=== PATIENT | male | born 1985 | race American Indian/Alaskan Native ===

== ENCOUNTER 2017-02-18 11:32 | Inpatient (IN) | payer MEDICAID ==
[2017-02-18] MEDS ORDERED: DILAUDID IV PRN (11:51)
[2017-02-18] MEDS ORDERED: D5NS 1,000 ML IV SCH (12:00)
[2017-02-18 14:25] LABS: Basophils % (Auto) 0.8 % (0.0-1.8); Eosinophils % (Auto) 2.9 % (0.0-4.3); Hematocrit 22.4 % (35.5-45.6); Hemoglobin 7.8 gm/dl (11.8-15.2); Mean Corpuscular HGB Conc 35 % (32-34); Mean Corpuscular Hemoglobin 34 pg (28-32); Mean Corpuscular Volume 96 fl (84-94); Platelet Count 240 K/mm3 (140-440); Red Blood Count 2.33 M/mm3 (3.65-5.03); Reticulocyte % 12.51 % (0.78-2.58); White Blood Count 16.4 K/mm3 (4.5-11.0)
[2017-02-18] MEDS: DILAUDID IV PRN ×3 (14:30→21:27)
[2017-02-18 14:31] LABS: Red Cell Distribution Width 23.3 % (13.2-15.2)
[2017-02-18] MEDS: BENADRYL IV PRN ×3 (14:35→21:26)
[2017-02-18] MEDS: LOVENOX SUB-Q SCH (14:36)
[2017-02-18] MEDS: NACL 0.9% 1000 ML 1,000 ML IV SCH ×2 (14:36→22:59)
[2017-02-18 14:37] LABS: Alanine Aminotransferase 29 units/L (7-56); Albumin 4.2 g/dL (3.9-5); Albumin/Globulin Ratio 1.6 %; Alkaline Phosphatase 92 units/L (35-129); Anion Gap 19 mmol/L; Blood Urea Nitrogen 8 mg/dL (9-20); Calcium 8.3 mg/dL (8.4-10.2); Carbon Dioxide 25 mmol/L (22-30); Chloride 99.4 mmol/L (98-107); Glucose 148 mg/dL (75-100); Sodium 139 mmol/L (137-145); Total Protein 6.9 g/dL (6.3-8.2)
[2017-02-18] MEDS ORDERED: ZOFRAN IV PRN (18:14)
[2017-02-18] MEDS ORDERED: TYLENOL PO PRN (18:14)
[2017-02-18] MEDS ORDERED: DULCOLAX PR PRN (18:14)
[2017-02-18] MEDS ORDERED: PERCOCET 5/325 PO PRN (18:14)
[2017-02-18] MEDS ORDERED: MILK OF MAGNESIA PO PRN (18:14)
--- NOTE | 2017-02-18 18:14 | History and Physical Report ---
History of Present Illness Date of examination: 02/18/17 Date of admission: 02/18/17 12:57 Chief complaint: CC: Severe pain all over 3 days History of present illness: 31 y/o AAF sent from Dr Fabian's office for severe pain all over.Pain is 10/ 10 and more in chest back and lower extremities.No exacerbating or relieving factors.No fever or chills.No SOB.No recent travel. Past History Past Medical History: other (SC anemia and crisis) Past Surgical History: No surgical history Social history: lives with family, smoking Family history: hypertension Medications and Allergies Allergies Allergy/AdvReac Type Severity Reaction Status Date / Time butorphanol tartrate Allergy Unknown Verified 07/24/16 14:50 [From Stadol] ketorolac tromethamine Allergy Shortness Verified 07/24/16 14:50 [From Toradol] of Breath metoclopramide HCl Allergy Unknown Verified 07/24/16 14:50 [From Reglan] morphine Allergy Shortness Verified 07/24/16 14:50 of Breath risperidone [From Risperdal] Allergy Swelling Verified 07/24/16 14:51 temazepam [From Restoril] Allergy Swelling Verified 07/24/16 14:50 nalbuphine HCl [From Nubain] AdvReac Unknown Verified 07/24/16 14:50 Home Medications Medication Instructions Recorded Confirmed Last Taken Type Folic Acid [Folvite] 1 mg PO QDAY 03/06/13 11/06/15 08/11/15 History oxyCODONE 30 mg PO Q6H PRN 11/06/15 11/06/15 Unknown History Folic Acid [Folvite] 1 mg PO QDAY #30 tablet 07/27/16 Unknown Rx Levofloxacin [Levaquin TAB] 500 mg PO QDAY #5 tablet 07/27/16 Unknown Rx oxyCODONE [Roxicodone TAB] 5 mg PO Q6HR PRN #15 tablet 07/27/16 Unknown Rx Active Meds: Active Medications Diphenhydramine HCl (Benadryl) 12.5 mg IV Q4H PRN PRN Reason: Itching Last Admin: 02/18/17 17:34 Dose: 12.5 mg Enoxaparin Sodium (Lovenox) 40 mg SUB-Q QDAY [facility]IES[facility] Last Admin: 02/18/17 14:36 Dose: 40 mg Hydromorphone HCl (Dilaudid) 2 mg IV Q4H PRN PRN Reason: Pain, Moderate (4-6) Last Admin: 02/18/17 15:30 Dose: 2 mg Sodium Chloride (Nacl 0.9% 1000 Ml) 1,000 mls @ 150 mls/hr IV DIRECT [facility]IESZKA Last Admin: 02/18/17 14:36 Dose: 150 mls/hr Review of Systems All systems: negative Constitutional: no weight loss, no weight gain, no fever, no chills, no sweats, no night sweats Ears, nose, mouth and throat: no sore throat, no swelling in mouth, no swelling in throat, no odynophagia Cardiovascular: chest pain, no orthopnea, no palpitations, no rapid/irregular heart beat, no edema, no syncope, no lightheadedness, no shortness of breath, no dyspnea on exertion, no paroxysmal nocturnal dyspnea Respiratory: no cough, no cough with sputum, no excessive sputum, no hemoptysis , no shortness of breath, no dyspnea on exertion Gastrointestinal: no nausea, no vomiting, no diarrhea, no constipation, no change in bowel habits, no hematemesis, no coffee ground emesis Genitourinary Male: no hematuria, no flank pain, no discharge, no urinary frequency, no urinary hesitancy, no nocturia, no incontinence, no erectile dysfunction, no genital pain Musculoskeletal: shooting arm pain, low back pain, shooting leg pain, no neck stiffness, no neck pain, no arm numbness/tingling Integumentary: no rash, no pruritis, no redness, no sores, no wounds, no jaundice, no boils, no blisters Neurological: no head injury, no seizures, no syncope Psychiatric: no anxiety, no memory loss, no change in sleep habits, no sleep disturbances, no insomnia, no hypersomnia, no change in appetite, no change in libido Endocrine: no cold intolerance, no heat intolerance, no polyphagia, no excessive thirst, no polydipsia, no polyuria, no nocturia, no excessive sweating , no flushing, no weight change Hematologic/Lymphatic: no easy bruising, no easy bleeding Allergic/Immunologic: no urticaria, no allergic rhinitis, no wheezing Exam - Constitutional Vitals: Temp Pulse Resp BP Pulse Ox 97.1 F L 97 H 16 124/65 97 02/18/17 16:00 02/18/17 16:00 02/18/17 16:00 02/18/17 16:00 02/18/17 13:41 General appearance: Present: no acute distress, well-nourished - EENT Eyes: Present: PERRL ENT: hearing intact, clear oral mucosa - Neck Neck: Present: supple, normal ROM - Respiratory Respiratory effort: normal Respiratory: bilateral: CTA - Cardiovascular Heart rate: 80 Rhythm: regular Heart Sounds: Present: S1 & S2. Absent: rub, click - Extremities Extremities: no ischemia, pulses intact, pulses symmetrical, No edema Peripheral Pulses: within normal limits - Abdominal General gastrointestinal: Present: soft, non-tender, non-distended, normal bowel sounds Male genitourinary: Present: normal - Rectal Rectal Exam: deferred - Integumentary Integumentary: Present: clear, warm, dry - Musculoskeletal Musculoskeletal: gait normal, strength equal bilaterally - Psychiatric Psychiatric: appropriate mood/affect, intact judgment & insight - Neurologic Neurologic: CNII-XII intact, moves all extremities Results - Labs CBC & Chem 7: 02/18/17 14:00 02/18/17 14:00 Labs: Laboratory Last Values WBC 16.4 K/mm3 (4.5-11.0) H 02/18/17 14:00 RBC 2.33 M/mm3 (3.65-5.03) L 02/18/17 14:00 Hgb 7.8 gm/dl (11.8-15.2) L 02/18/17 14:00 Hct 22.4 % (35.5-45.6) L 02/18/17 14:00 MCV 96 fl (84-94) H 02/18/17 14:00 MCH 34 pg (28-32) H 02/18/17 14:00 MCHC 35 % (32-34) H 02/18/17 14:00 RDW 23.3 % (13.2-15.2) H 02/18/17 14:00 Plt Count 240 K/mm3 (140-440) 02/18/17 14:00 Lymph % (Auto) 19.3 % (13.4-35.0) 02/18/17 14:00 [place] % (Auto) 8.0 % (0.0-7.3) H 02/18/17 14:00 Eos % (Auto) 2.9 % (0.0-4.3) 02/18/17 14:00 Baso % (Auto) 0.8 % (0.0-1.8) 02/18/17 14:00 Lymph # 3.2 K/mm3 (1.2-5.4) 02/18/17 14:00 [place] # 1.3 K/mm3 (0.0-0.8) H 02/18/17 14:00 Eos # 0.5 K/mm3 (0.0-0.4) H 02/18/17 14:00 Baso # 0.1 K/mm3 (0.0-0.1) 02/18/17 14:00 Seg Neutrophils % 69.0 % (40.0-70.0) 02/18/17 14:00 Seg Neutrophils # 11.3 K/mm3 (1.8-7.7) H 02/18/17 14:00 Percent Retic 12.51 % (0.78-2.58) H 02/18/17 14:00 Sodium 139 mmol/L (137-145) 02/18/17 14:00 Potassium 4.0 mmol/L (3.6-5.0) 02/18/17 14:00 Chloride 99.4 mmol/L (98-107) 02/18/17 14:00 Carbon Dioxide 25 mmol/L (22-30) 02/18/17 14:00 Anion Gap 19 mmol/L 02/18/17 14:00 BUN 8 mg/dL (9-20) L 02/18/17 14:00 Creatinine 0.5 mg/dL (0.8-1.5) L 02/18/17 14:00 Estimated GFR > 60 ml/min 02/18/17 14:00 BUN/Creatinine Ratio 16.00 % 02/18/17 14:00 Glucose 148 mg/dL (75-100) H 02/18/17 14:00 POC Glucose 153 (70-105) H 02/18/17 13:29 Hemoglobin A1c < 4.2 % (4-6) 02/18/17 14:00 Calcium 8.3 mg/dL (8.4-10.2) L 02/18/17 14:00 Total Bilirubin 4.80 mg/dL (0.1-1.2) H 02/18/17 14:00 AST 39 units/L (5-40) 02/18/17 14:00 ALT 29 units/L (7-56) 02/18/17 14:00 Alkaline Phosphatase 92 units/L (35-129) 02/18/17 14:00 Total Protein 6.9 g/dL (6.3-8.2) 02/18/17 14:00 Albumin 4.2 g/dL (3.9-5) 02/18/17 14:00 Albumin/Globulin Ratio 1.6 % 02/18/17 14:00 Short CBC 02/18/17 Range/Units 14:00 WBC 16.4 H (4.5-11.0) K/mm3 Hgb 7.8 L (11.8-15.2) gm/dl Hct 22.4 L (35.5-45.6) % Plt Count 240 (140-440) K/mm3 BMP 02/18/17 14:00 Sodium 139 Potassium 4.0 Chloride 99.4 Carbon Dioxide 25 BUN 8 L Creatinine 0.5 L Glucose 148 H Calcium 8.3 L Liver Function 02/18/17 Range/Units 14:00 Total Bilirubin 4.80 H (0.1-1.2) mg/dL AST 39 (5-40) units/L ALT 29 (7-56) units/L Alkaline Phosphatase 92 (35-129) units/L Albumin 4.2 (3.9-5) g/dL Assessment and Plan Advance Directives: Yes (Full code) VTE prophylaxis?: Chemical Plan of care discussed with patient/family: Yes - Patient Problems (1) Hemolytic crisis Current Visit: No Status: Acute Plan to address problem: SEc to cell crisis IV fluids and pain management Retic count [id number] tansfuse if necessary (2) Dehydration, moderate Current Visit: No Status: Acute Plan to address problem: IV Fluids (3) Hyperbilirubinemia Current Visit: No Status: Acute Plan to address problem: Sec to Hemolysis (4) Leukocytosis Current Visit: Yes Status: Acute Qualifiers: Leukocytosis type: L Plan to address problem: Sress induced?? Empiric Levaquin IV started (5) Pain management Current Visit: Yes Status: Acute Plan to address problem: IV Dilaudid for now.Pain pump if necessary (6) DVT prophylaxis Current Visit: Yes Status: Acute Plan to address problem: On Lovenox
[2017-02-18] MEDS: PEPCID PO SCH (21:29)
[2017-02-19] MEDS: BENADRYL IV PRN ×7 (01:27→22:36)
[2017-02-19] MEDS: DILAUDID IV PRN ×7 (01:27→22:35)
[2017-02-19] MEDS: NACL 0.9% 1000 ML 1,000 ML IV SCH ×3 (05:19→23:54)
[2017-02-19] MEDS: LOVENOX SUB-Q SCH (09:12)
[2017-02-19] MEDS: PEPCID PO SCH ×2 (09:13→22:34)
[2017-02-19] MEDS: LEVAQUIN 750MG/150ML 750 MG/150 ML BAG IV SCH (12:02)
[2017-02-19] MEDS: NACL 0.9% 1000 ML 1,000 ML IV ONE ×2 (12:02→17:03)
[2017-02-19 15:34] LABS: Bilirubin,Urine NEG (Negative); Blood,Urine NEG (Negative); Ketones,Urine NEG (Negative); Leukocyte Esterase,Urine NEG (Negative); Nitrite,Urine NEG (Negative); Protein,Urine <15 mg/dL mg/dL (Negative); WBC,Urine < 1.0 /HPF (0.0-6.0)
--- NOTE | 2017-02-19 18:30 | Consultation ---
History of Present Illness - Reason for Consult Consult date: 02/19/17 SCD/Pain. Requesting physician: ANTWAN GARRETT - History of Present Illness Thank you for this consult. Patient seen/examined, record reviewed, case d/w patient. Patient was seen in the office, transferred here for further eval. Labs showed elevated Glucose.appeared quite dehydrated. Past History Past Medical History: other (SC anemia and crisis) Past Surgical History: No surgical history Social history: single, lives with family, smoking Family history: no significant family history, hypertension Medications and Allergies Allergies Allergy/AdvReac Type Severity Reaction Status Date / Time butorphanol tartrate Allergy Unknown Verified 07/24/16 14:50 [From Stadol] ketorolac tromethamine Allergy Shortness Verified 07/24/16 14:50 [From Toradol] of Breath metoclopramide HCl Allergy Unknown Verified 07/24/16 14:50 [From Reglan] morphine Allergy Shortness Verified 07/24/16 14:50 of Breath risperidone [From Risperdal] Allergy Swelling Verified 07/24/16 14:51 temazepam [From Restoril] Allergy Swelling Verified 07/24/16 14:50 nalbuphine HCl [From Nubain] AdvReac Unknown Verified 07/24/16 14:50 Home Medications Medication Instructions Recorded Confirmed Last Taken Type Folic Acid [Folvite] 1 mg PO QDAY 03/06/13 11/06/15 08/11/15 History oxyCODONE 30 mg PO Q6H PRN 11/06/15 11/06/15 Unknown History Folic Acid [Folvite] 1 mg PO QDAY #30 tablet 07/27/16 Unknown Rx Levofloxacin [Levaquin TAB] 500 mg PO QDAY #5 tablet 07/27/16 Unknown Rx oxyCODONE [Roxicodone TAB] 5 mg PO Q6HR PRN #15 tablet 07/27/16 Unknown Rx Active Meds: Active Medications Acetaminophen (Tylenol) 650 mg PO Q4H PRN PRN Reason: Pain MILD(1-3)/Fever >100.5/DOYLE Bisacodyl (Dulcolax) 10 mg IN QDAY PRN PRN Reason: Constipation unrelieved by MOM Diphenhydramine HCl (Benadryl) 12.5 mg IV Q4H PRN PRN Reason: Itching Last Admin: 02/19/17 15:28 Dose: 12.5 mg Enoxaparin Sodium (Lovenox) 40 mg SUB-Q QDAY [facility] Last Admin: 02/19/17 09:12 Dose: 40 mg Famotidine (Pepcid) 20 mg PO BID [facility] Last Admin: 02/19/17 09:13 Dose: 20 mg Hydromorphone HCl (Dilaudid) 2 mg IV Q3H PRN PRN Reason: Pain, Moderate (4-6) Last Admin: 02/19/17 15:27 Dose: 2 mg Sodium Chloride (Nacl 0.9% 1000 Ml) 1,000 mls @ 150 mls/hr IV DIRECT [facility] Last Admin: 02/19/17 12:04 Dose: 150 mls/hr Levofloxacin/Dextrose (Levaquin 750mg/150ml) 750 mg in 150 mls @ 100 mls/hr IV Q24HR [facility]IES[facility]KA PRN Reason: Protocol Last Admin: 02/19/17 12:02 Dose: 100 mls/hr Magnesium Hydroxide (Milk Of Magnesia) 30 ml PO Q4H PRN PRN Reason: Constipation Ondansetron HCl (Zofran) 4 mg IV Q3H PRN PRN Reason: N/V unrelieved by Reglan Oxycodone/Acetaminophen (Percocet 5/325) 1 tab PO Q6H PRN PRN Reason: Pain, Moderate (4-6) Review of Systems Constitutional: chronic pain Exam - Constitutional Vitals: Temp Pulse Resp BP Pulse Ox 98.6 F 85 15 115/75 98 02/19/17 07:15 02/19/17 07:15 02/19/17 07:15 02/19/17 07:15 02/19/17 07:15 General appearance: Present: mild distress, well-nourished - EENT Eyes: Present: PERRL ENT: hearing intact, clear oral mucosa - Neck Neck: Present: supple, normal ROM - Respiratory Respiratory effort: normal Respiratory: bilateral: CTA - Cardiovascular Heart Sounds: Present: S1 & S2. Absent: rub, click - Extremities Extremities: pulses symmetrical, No edema Peripheral Pulses: within normal limits - Abdominal General gastrointestinal: Present: soft, non-tender, non-distended, normal bowel sounds Male genitourinary: Present: deferred - Rectal Rectal Exam: deferred - Integumentary Integumentary: Present: clear, warm, dry - Musculoskeletal Musculoskeletal: gait normal, strength equal bilaterally - Psychiatric Psychiatric: appropriate mood/affect, intact judgment & insight - Neurologic Neurologic: CNII-XII intact, moves all extremities Results - Labs CBC & Chem 7: 02/18/17 14:00 02/18/17 14:00 Assessment and Plan - Patient Problems (1) Anemia Current Visit: Yes Status: Acute Qualifiers: Anemia type: A Iron deficiency anemia type: I Vitamin B12 deficiency anemia type: V Folate deficiency anemia type: F Bone marrow failure anemia type: B Hemolytic anemia type: H Other causes of anemia: O Chronic kidney disease stage: C Plan to address problem: Will replace when indicated. (2) Sickle cell pain crisis Current Visit: Yes Status: Acute Plan to address problem: Pain control. (3) Dehydration Current Visit: Yes Status: Acute Plan to address problem: hydration. (4) Hyperglycemia Current Visit: Yes Status: Acute Plan to address problem: I had ordered A1C, no result yet.
--- NOTE | 2017-02-19 19:06 | Progress Note ---
Assessment and Plan Assessment and plan: 1. Sickle cell crisis Retic count 12% Monitor H&H; transfuse as needed Give IV fluids and pain control medications 2. Hyperbilirubinemia Secondary to hemolysis 3. Dehydration Give IV fluids 4. SIRS Started on levofloxacin empirically Obtain UA, urine and blood cultures, lactic acid to exclude sepsis 5. DVT prophylaxis History Interval history: c/o generalized body aches Hospitalist Physical - Constitutional Vitals: Temp Pulse Resp BP Pulse Ox 99.4 F 91 H 18 127/79 99 02/19/17 14:25 02/19/17 14:25 02/19/17 14:25 02/19/17 14:25 02/19/17 14:25 General appearance: Present: mild distress, well-nourished - EENT Eyes: Present: PERRL, EOM intact, scleral icterus. Absent: conjunctival injection - Neck Neck: Present: supple, normal ROM. Absent: masses or JVD - Respiratory Respiratory effort: normal Respiratory: bilateral: CTA, negative: rhonchi, wheezing - Cardiovascular Rhythm: other (tachycatdic) Heart Sounds: Present: S1 & S2. Absent: systolic murmur - Extremities Extremities: no ischemia - Abdominal General gastrointestinal: soft, non-tender, non-distended, normal bowel sounds - Neurologic Neurologic: CNII-XII intact, no focal deficits Results - Labs CBC & Chem 7: 02/20/17 05:35 02/20/17 05:35 Labs: Laboratory Last Values WBC 16.4 K/mm3 (4.5-11.0) H 02/18/17 14:00 RBC 2.33 M/mm3 (3.65-5.03) L 02/18/17 14:00 Hgb 7.8 gm/dl (11.8-15.2) L 02/18/17 14:00 Hct 22.4 % (35.5-45.6) L 02/18/17 14:00 MCV 96 fl (84-94) H 02/18/17 14:00 MCH 34 pg (28-32) H 02/18/17 14:00 MCHC 35 % (32-34) H 02/18/17 14:00 RDW 23.3 % (13.2-15.2) H 02/18/17 14:00 Plt Count 240 K/mm3 (140-440) 02/18/17 14:00 Lymph % (Auto) 19.3 % (13.4-35.0) 02/18/17 14:00 [place] % (Auto) 8.0 % (0.0-7.3) H 02/18/17 14:00 Eos % (Auto) 2.9 % (0.0-4.3) 02/18/17 14:00 Baso % (Auto) 0.8 % (0.0-1.8) 02/18/17 14:00 Lymph # 3.2 K/mm3 (1.2-5.4) 02/18/17 14:00 [place] # 1.3 K/mm3 (0.0-0.8) H 02/18/17 14:00 Eos # 0.5 K/mm3 (0.0-0.4) H 02/18/17 14:00 Baso # 0.1 K/mm3 (0.0-0.1) 02/18/17 14:00 Seg Neutrophils % 69.0 % (40.0-70.0) 02/18/17 14:00 Seg Neutrophils # 11.3 K/mm3 (1.8-7.7) H 02/18/17 14:00 Percent Retic 12.51 % (0.78-2.58) H 02/18/17 14:00 Sodium 139 mmol/L (137-145) 02/18/17 14:00 Potassium 4.0 mmol/L (3.6-5.0) 02/18/17 14:00 Chloride 99.4 mmol/L (98-107) 02/18/17 14:00 Carbon Dioxide 25 mmol/L (22-30) 02/18/17 14:00 Anion Gap 19 mmol/L 02/18/17 14:00 BUN 8 mg/dL (9-20) L 02/18/17 14:00 Creatinine 0.5 mg/dL (0.8-1.5) L 02/18/17 14:00 Estimated GFR > 60 ml/min 02/18/17 14:00 BUN/Creatinine Ratio 16.00 % 02/18/17 14:00 Glucose 148 mg/dL (75-100) H 02/18/17 14:00 POC Glucose 153 (70-105) H 02/18/17 13:29 Hemoglobin A1c < 4.2 % (4-6) 02/18/17 14:00 Lactic Acid 0.90 mmol/L (0.7-2.0) 02/19/17 11:44 Calcium 8.3 mg/dL (8.4-10.2) L 02/18/17 14:00 Total Bilirubin 4.80 mg/dL (0.1-1.2) H 02/18/17 14:00 AST 39 units/L (5-40) 02/18/17 14:00 ALT 29 units/L (7-56) 02/18/17 14:00 Alkaline Phosphatase 92 units/L (35-129) 02/18/17 14:00 Total Protein 6.9 g/dL (6.3-8.2) 02/18/17 14:00 Albumin 4.2 g/dL (3.9-5) 02/18/17 14:00 Albumin/Globulin Ratio 1.6 % 02/18/17 14:00 Urine Color Yellow (Yellow) 02/19/17 15:00 Urine Turbidity Clear (Clear) 02/19/17 15:00 Urine pH 7.0 (5.0-7.0) 02/19/17 15:00 Ur Specific [place] 1.005 (1.003-1.030) 02/19/17 15:00 Urine Protein <15 mg/dl mg/dL (Negative) 02/19/17 15:00 Urine Glucose (UA) Neg mg/dL (Negative) 02/19/17 15:00 Urine Ketones Neg mg/dL (Negative) 02/19/17 15:00 Urine Blood Neg (Negative) 02/19/17 15:00 Urine Nitrite Neg (Negative) 02/19/17 15:00 Urine Bilirubin Neg (Negative) 02/19/17 15:00 Urine Urobilinogen 4.0 mg/dL (<2.0) 02/19/17 15:00 Ur Leukocyte Esterase Neg (Negative) 02/19/17 15:00 Urine WBC (Auto) < 1.0 /HPF (0.0-6.0) 02/19/17 15:00 Urine RBC (Auto) 1.0 /HPF (0.0-6.0) 02/19/17 15:00 U Epithel Cells (Auto) < 1.0 /HPF (0-13.0) 02/19/17 15:00
[2017-02-19 20:12] LABS: Basophils % (Auto) 1.1 % (0.0-1.8); Hematocrit 24.7 % (35.5-45.6); Hemoglobin 8.4 gm/dl (11.8-15.2); Mean Corpuscular HGB Conc 34 % (32-34); Mean Corpuscular Hemoglobin 34 pg (28-32); Mean Corpuscular Volume 98 fl (84-94); Platelet Count 302 K/mm3 (140-440); Red Blood Count 2.52 M/mm3 (3.65-5.03); Reticulocyte % 12.39 % (0.78-2.58); White Blood Count 11.6 K/mm3 (4.5-11.0)
[2017-02-19 20:13] LABS: Red Cell Distribution Width 22.9 % (13.2-15.2)
[2017-02-20] MEDS: BENADRYL IV PRN ×7 (01:37→23:35)
[2017-02-20] MEDS: DILAUDID IV PRN ×7 (01:37→23:35)
[2017-02-20] MEDS: NACL 0.9% 1000 ML 1,000 ML IV SCH ×3 (05:28→19:51)
[2017-02-20 06:14] LABS: Basophils % (Auto) 0.7 % (0.0-1.8); Eosinophils % (Auto) 2.5 % (0.0-4.3); Hemoglobin 8.4 gm/dl (11.8-15.2); Mean Corpuscular HGB Conc 35 % (32-34); Mean Corpuscular Hemoglobin 34 pg (28-32); Mean Corpuscular Volume 97 fl (84-94); Platelet Count 314 K/mm3 (140-440); Red Blood Count 2.47 M/mm3 (3.65-5.03); White Blood Count 13.7 K/mm3 (4.5-11.0)
[2017-02-20 06:20] LABS: Red Cell Distribution Width 22.5 % (13.2-15.2)
[2017-02-20 06:39] LABS: Anion Gap 19 mmol/L; BUN/Creatinine Ratio 23.33; Blood Urea Nitrogen 7 mg/dL (9-20); Calcium 8.6 mg/dL (8.4-10.2); Carbon Dioxide 23 mmol/L (22-30); Chloride 100.8 mmol/L (98-107); Glucose 122 mg/dL (75-100); Potassium 3.7 mmol/L (3.6-5.0); Sodium 139 mmol/L (137-145)
[2017-02-20] MEDS: PEPCID PO SCH ×2 (11:39→22:01)
[2017-02-20] MEDS: LOVENOX SUB-Q SCH (11:40)
[2017-02-20] MEDS: LEVAQUIN 750MG/150ML 750 MG/150 ML BAG IV SCH (11:40)
--- NOTE | 2017-02-20 15:24 | Progress Note ---
Assessment and Plan Assessment and plan: 1. Sickle cell crisis Retic count 12% on admission Monitor H&H; transfuse as needed Give IV fluids and pain control medications 2. Hyperbilirubinemia Secondary to hemolysis Monitor 3. Dehydration Give IV fluids 4. SIRS Started on levofloxacin empirically Obtain UA, urine and blood cultures, lactic acid to exclude sepsis 5. Hyperglycemia Likely stress reaction, A1c 4 6. Pain management IV narcotics 7. DVT prophylaxis History Interval history: Still c/o generalized body aches, but slightly better than yesterday Hospitalist Physical - Constitutional Vitals: Temp Pulse Resp BP Pulse Ox 99.3 F 85 16 116/82 97 02/20/17 12:09 02/20/17 12:09 02/20/17 12:09 02/20/17 12:09 02/20/17 08:35 General appearance: Present: mild distress, well-nourished - EENT Eyes: Present: PERRL, EOM intact, scleral icterus. Absent: conjunctival injection - Neck Neck: Present: supple, normal ROM. Absent: masses or JVD - Respiratory Respiratory effort: normal Respiratory: bilateral: CTA, negative: rhonchi, wheezing - Cardiovascular Rhythm: regular Heart Sounds: Present: S1 & S2. Absent: systolic murmur - Extremities Extremities: no ischemia - Abdominal General gastrointestinal: soft, non-tender, non-distended, normal bowel sounds - Psychiatric Psychiatric: cooperative - Neurologic Neurologic: CNII-XII intact, no focal deficits Results - Labs CBC & Chem 7: 02/20/17 05:35 02/20/17 05:35 Labs: Laboratory Last Values WBC 13.7 K/mm3 (4.5-11.0) H 02/20/17 05:35 RBC 2.47 M/mm3 (3.65-5.03) L 02/20/17 05:35 Hgb 8.4 gm/dl (11.8-15.2) L 02/20/17 05:35 Hct 24.0 % (35.5-45.6) L 02/20/17 05:35 MCV 97 fl (84-94) H 02/20/17 05:35 MCH 34 pg (28-32) H 02/20/17 05:35 MCHC 35 % (32-34) H 02/20/17 05:35 RDW 22.5 % (13.2-15.2) H 02/20/17 05:35 Plt Count 314 K/mm3 (140-440) 02/20/17 05:35 Lymph % (Auto) 32.6 % (13.4-35.0) 02/20/17 05:35 [place] % (Auto) 10.1 % (0.0-7.3) H 02/20/17 05:35 Eos % (Auto) 2.5 % (0.0-4.3) 02/20/17 05:35 Baso % (Auto) 0.7 % (0.0-1.8) 02/20/17 05:35 Lymph # 4.5 K/mm3 (1.2-5.4) 02/20/17 05:35 [place] # 1.4 K/mm3 (0.0-0.8) H 02/20/17 05:35 Eos # 0.3 K/mm3 (0.0-0.4) 02/20/17 05:35 Baso # 0.1 K/mm3 (0.0-0.1) 02/20/17 05:35 Seg Neutrophils % 54.1 % (40.0-70.0) 02/20/17 05:35 Seg Neutrophils # 7.4 K/mm3 (1.8-7.7) 02/20/17 05:35 Percent Retic 12.39 % (0.78-2.58) H 02/19/17 19:50 Sodium 139 mmol/L (137-145) 02/20/17 05:35 Potassium 3.7 mmol/L (3.6-5.0) 02/20/17 05:35 Chloride 100.8 mmol/L (98-107) 02/20/17 05:35 Carbon Dioxide 23 mmol/L (22-30) 02/20/17 05:35 Anion Gap 19 mmol/L 02/20/17 05:35 BUN 7 mg/dL (9-20) L 02/20/17 05:35 Creatinine 0.3 mg/dL (0.8-1.5) L 02/20/17 05:35 Estimated GFR > 60 ml/min 02/20/17 05:35 BUN/Creatinine Ratio 23.33 % 02/20/17 05:35 Glucose 122 mg/dL (75-100) H 02/20/17 05:35 POC Glucose 153 (70-105) H 02/18/17 13:29 Hemoglobin A1c < 4.2 % (4-6) 02/18/17 14:00 Lactic Acid 0.90 mmol/L (0.7-2.0) 02/19/17 11:44 Calcium 8.6 mg/dL (8.4-10.2) 02/20/17 05:35 Total Bilirubin 4.80 mg/dL (0.1-1.2) H 02/18/17 14:00 AST 39 units/L (5-40) 02/18/17 14:00 ALT 29 units/L (7-56) 02/18/17 14:00 Alkaline Phosphatase 92 units/L (35-129) 02/18/17 14:00 Total Protein 6.9 g/dL (6.3-8.2) 02/18/17 14:00 Albumin 4.2 g/dL (3.9-5) 02/18/17 14:00 Albumin/Globulin Ratio 1.6 % 02/18/17 14:00 Urine Color Yellow (Yellow) 02/19/17 15:00 Urine Turbidity Clear (Clear) 02/19/17 15:00 Urine pH 7.0 (5.0-7.0) 02/19/17 15:00 Ur Specific [place] 1.005 (1.003-1.030) 02/19/17 15:00 Urine Protein <15 mg/dl mg/dL (Negative) 02/19/17 15:00 Urine Glucose (UA) Neg mg/dL (Negative) 02/19/17 15:00 Urine Ketones Neg mg/dL (Negative) 02/19/17 15:00 Urine Blood Neg (Negative) 02/19/17 15:00 Urine Nitrite Neg (Negative) 02/19/17 15:00 Urine Bilirubin Neg (Negative) 02/19/17 15:00 Urine Urobilinogen 4.0 mg/dL (<2.0) 02/19/17 15:00 Ur Leukocyte Esterase Neg (Negative) 02/19/17 15:00 Urine WBC (Auto) < 1.0 /HPF (0.0-6.0) 02/19/17 15:00 Urine RBC (Auto) 1.0 /HPF (0.0-6.0) 02/19/17 15:00 U Epithel Cells (Auto) < 1.0 /HPF (0-13.0) 02/19/17 15:00
--- NOTE | 2017-02-20 19:13 | Consultation ---
History of Present Illness - Reason for Consult Consult date: 02/20/17 - History of Present Illness Patient seen/examined, record reviewed, case d/w him. NAD. Cultures so far NG. Past History Past Medical History: other (SC anemia and crisis) Past Surgical History: No surgical history Social history: single, lives with family, smoking Family history: no significant family history, hypertension Medications and Allergies Allergies Allergy/AdvReac Type Severity Reaction Status Date / Time butorphanol tartrate Allergy Unknown Verified 07/24/16 14:50 [From Stadol] ketorolac tromethamine Allergy Shortness Verified 07/24/16 14:50 [From Toradol] of Breath metoclopramide HCl Allergy Unknown Verified 07/24/16 14:50 [From Reglan] morphine Allergy Shortness Verified 07/24/16 14:50 of Breath risperidone [From Risperdal] Allergy Swelling Verified 07/24/16 14:51 temazepam [From Restoril] Allergy Swelling Verified 07/24/16 14:50 nalbuphine HCl [From Nubain] AdvReac Unknown Verified 07/24/16 14:50 Home Medications Medication Instructions Recorded Confirmed Last Taken Type Folic Acid [Folvite] 1 mg PO QDAY 03/06/13 11/06/15 08/11/15 History oxyCODONE 30 mg PO Q6H PRN 11/06/15 11/06/15 Unknown History Folic Acid [Folvite] 1 mg PO QDAY #30 tablet 07/27/16 Unknown Rx Levofloxacin [Levaquin TAB] 500 mg PO QDAY #5 tablet 07/27/16 Unknown Rx oxyCODONE [Roxicodone TAB] 5 mg PO Q6HR PRN #15 tablet 07/27/16 Unknown Rx Active Meds: Active Medications Acetaminophen (Tylenol) 650 mg PO Q4H PRN PRN Reason: Pain MILD(1-3)/Fever >100.5/DOYLE Bisacodyl (Dulcolax) 10 mg [place] QDAY PRN PRN Reason: Constipation unrelieved by MOM Diphenhydramine HCl (Benadryl) 12.5 mg IV Q4H PRN PRN Reason: Itching Last Admin: 02/20/17 15:30 Dose: 12.5 mg Enoxaparin Sodium (Lovenox) 40 mg SUB-Q QDAY AGNIESZKA Last Admin: 02/20/17 11:40 Dose: 40 mg Famotidine (Pepcid) 20 mg PO BID [facility] Last Admin: 02/20/17 11:39 Dose: 20 mg Hydromorphone HCl (Dilaudid) 2 mg IV Q3H PRN PRN Reason: Pain, Moderate (4-6) Last Admin: 02/20/17 15:31 Dose: 2 mg Sodium Chloride (Nacl 0.9% 1000 Ml) 1,000 mls @ 150 mls/hr IV DIRECT [facility] Last Admin: 02/20/17 12:53 Dose: 150 mls/hr Levofloxacin/Dextrose (Levaquin 750mg/150ml) 750 mg in 150 mls @ 100 mls/hr IV Q24HR AGNIESZKA PRN Reason: Protocol Last Admin: 02/20/17 11:40 Dose: 100 mls/hr Magnesium Hydroxide (Milk Of Magnesia) 30 ml PO Q4H PRN PRN Reason: Constipation Ondansetron HCl (Zofran) 4 mg IV Q3H PRN PRN Reason: N/V unrelieved by Reglan Oxycodone/Acetaminophen (Percocet 5/325) 1 tab PO Q6H PRN PRN Reason: Pain, Moderate (4-6) Review of Systems Constitutional: chronic pain Musculoskeletal: low back pain Exam - Constitutional Vitals: Temp Pulse Resp BP Pulse Ox 99.3 F 79 16 114/76 97 02/20/17 15:50 02/20/17 15:50 02/20/17 15:50 02/20/17 15:50 02/20/17 08:35 General appearance: Present: mild distress, well-nourished - EENT Eyes: Present: PERRL ENT: hearing intact, clear oral mucosa - Neck Neck: Present: supple, normal ROM - Respiratory Respiratory effort: normal Respiratory: bilateral: CTA - Cardiovascular Heart Sounds: Present: S1 & S2. Absent: rub, click - Extremities Extremities: pulses symmetrical, No edema Peripheral Pulses: within normal limits - Abdominal General gastrointestinal: Present: soft, non-tender, non-distended, normal bowel sounds Male genitourinary: Present: deferred - Rectal Rectal Exam: deferred - Integumentary Integumentary: Present: clear, warm, dry - Musculoskeletal Musculoskeletal: gait normal, strength equal bilaterally - Psychiatric Psychiatric: appropriate mood/affect, intact judgment & insight - Neurologic Neurologic: CNII-XII intact, moves all extremities Results - Labs CBC & Chem 7: 02/20/17 05:35 02/20/17 05:35 Labs: Abnormal lab results 02/19/17 02/20/17 02/20/17 Range/Units 19:50 05:35 05:35 WBC 11.6 H 13.7 H (4.5-11.0) K/mm3 RBC 2.52 L 2.47 L (3.65-5.03) M/mm3 Hgb 8.4 L 8.4 L (11.8-15.2) gm/dl Hct 24.7 L 24.0 L (35.5-45.6) % MCV 98 H 97 H (84-94) fl MCH 34 H 34 H (28-32) pg MCHC 35 H (32-34) % RDW 22.9 H 22.5 H (13.2-15.2) % [place] % (Auto) 8.0 H 10.1 H (0.0-7.3) % [place] # 0.9 H 1.4 H (0.0-0.8) K/mm3 Seg Neutrophils % 70.7 H (40.0-70.0) % Seg Neutrophils # 8.2 H (1.8-7.7) K/mm3 Percent Retic 12.39 H (0.78-2.58) % BUN 7 L (9-20) mg/dL Creatinine 0.3 L (0.8-1.5) mg/dL Glucose 122 H (75-100) mg/dL Assessment and Plan - Patient Problems (1) Anemia Current Visit: Yes Status: Acute Qualifiers: Anemia type: A Iron deficiency anemia type: I Vitamin B12 deficiency anemia type: V Folate deficiency anemia type: F Bone marrow failure anemia type: B Hemolytic anemia type: H Other causes of anemia: O Chronic kidney disease stage: C Plan to address problem: Will replace when indicated. (2) Sickle cell pain crisis Current Visit: Yes Status: Acute Plan to address problem: Pain control. (3) Dehydration Current Visit: Yes Status: Acute Plan to address problem: hydration. (4) Hyperglycemia Current Visit: Yes Status: Acute Plan to address problem: I had ordered A1C, no result yet.
[2017-02-20 20:04] LABS: Basophils % (Auto) 1.7 % (0.0-1.8); Hematocrit 25.5 % (35.5-45.6); Hemoglobin 8.8 gm/dl (11.8-15.2); Mean Corpuscular HGB Conc 35 % (32-34); Mean Corpuscular Hemoglobin 34 pg (28-32); Mean Corpuscular Volume 98 fl (84-94); Platelet Count 371 K/mm3 (140-440); Reticulocyte % 11.68 % (0.78-2.58); White Blood Count 13.2 K/mm3 (4.5-11.0)
[2017-02-20 20:10] LABS: Red Cell Distribution Width 22.3 % (13.2-15.2)
--- NOTE | 2017-02-21 03:28 | Admit Criteria Form ---
Admission Criteria Documentation: SICKLE CELL DISEASE Clinical Indications for Admission to Inpatient Care (Place 'X' for any and all applicable criteria): Admission is indicated for 1 or more of the following(1)(2)(3)(4): [X]I. Inpatient admission required rather than observation care (see also observation care guidelines) because of 1 or more of the following(19): [ ]a) Altered mental status [ ]b) High fever or infection requiring inpatient admission as indicated by 1 or more of the following: [ ]A. Appropriate outpatient observation care antimicrobial treatment unavailable, not effective, or not appropriate for infection [ ]B. Documented bacteremia [ ]C. Temp >104.9F (40.5C) (oral) [ ]D. Temp >103.1F (oral) or <96.8F(rectal) that does not respond to all emergency treatment measures [ ]c) Supplemental O2 or respiratory treatments for > 24 hrs that is performable only in acute inpatient setting [X]d) Continuous parenteral narcotics or other major pain intervention for over 24 hours performable only in acute inpatient setting [ ]e) Exchange transfusion [ ]f) Other condition, treatment or monitoring requiring inpatient admission [ ]II. Acute chest syndrome indicated by ALL of the following (10): [ ]a) New alveolar infiltrate involving at least one lung segment [ ]b) Associated pulmonary symptoms or findings as indicated by1 or more of the following: [ ]i) Chest pain [ ]ii) Hypoxia [ ]iii) Tachypnea/dyspnea [ ]iv) Abnormal breath sounds (wheezing, crackles) [ ]v) Cough [ ]vi) Sputum production [ ]III. Hypoxemia or acidosis (more severe than baseline) [ ]IV. Emergent surgery needed (eg, acute cholecystitis) [ ]V. -related complication(11) [ ]. Splenic or hepatic sequestration(12) [ ]VII. Aplastic crisis [ ]VIII. Priapism or other vascular complication(13) [ ]IX. Traumatic hyphema [A](14) [ ]X. Acute renal failure [ ]XI. Signs or symptoms of central nervous system injury indicated by 1 or more of the following: [ ]a) Stroke(9) [ ]b) Seizure [ ]c) Other significant central nervous system symptom or event Extended stay beyond goal length of stay may be needed for: [ ]a) Inadequate pain control [ ]b) Acute chest syndrome [ ]c) Sequestration or aplastic crisis (12) [ ]d) Pneumonia and asthma exacerbation [ ]e) Neurologic or vascular complications (25) [ ]f) Infection (eg, osteomyelitis) that requires ongoing treatment) The original [facility] [employer] content created by [facility] has been revised. The portions of the content which have been revised are identified through the use of italic text or in bold, and [facility] has neither reviewed nor approved the modified material. All other unmodified content is copyright [facility]. Please see references footnoted in the original [facility] [employer] edition 2017 Admission Criteria Met: Yes
[2017-02-21] MEDS: NACL 0.9% 1000 ML 1,000 ML IV SCH ×3 (03:36→18:35)
[2017-02-21] MEDS: BENADRYL IV PRN ×5 (03:37→22:44)
[2017-02-21] MEDS: DILAUDID IV PRN ×6 (03:37→22:44)
[2017-02-21] MEDS: LEVAQUIN 750MG/150ML 750 MG/150 ML BAG IV SCH (10:17)
[2017-02-21] MEDS: PEPCID PO SCH ×2 (10:18→22:44)
[2017-02-21] MEDS: LOVENOX SUB-Q SCH (10:22)
--- NOTE | 2017-02-21 19:16 | Progress Note ---
Assessment and Plan Assessment and plan: 1. Sickle cell crisis Retic count 12% on admission Monitor H&H; transfuse as needed Give IV fluids and pain control medications 2. Hyperbilirubinemia Secondary to hemolysis Monitor 3. Dehydration Give IV fluids 4. SIRS Started on levofloxacin empirically Obtain UA, urine and blood cultures, lactic acid to exclude sepsis 5. Hyperglycemia Likely stress reaction, A1c 4 6. Pain management IV narcotics 7. DVT prophylaxis History Interval history: Still c/o pain, but feeling better Hospitalist Physical - Constitutional Vitals: Temp Pulse Resp BP Pulse Ox 99.5 F 74 16 101/60 98 02/21/17 16:40 02/21/17 16:40 02/21/17 16:40 02/21/17 16:40 02/21/17 16:40 General appearance: Present: mild distress, well-nourished - EENT Eyes: Present: PERRL, EOM intact - Neck Neck: Present: supple, normal ROM. Absent: masses or JVD - Respiratory Respiratory effort: normal Respiratory: bilateral: CTA, negative: rhonchi, wheezing - Cardiovascular Rhythm: regular Heart Sounds: Present: S1 & S2. Absent: systolic murmur - Extremities Extremities: no ischemia - Abdominal General gastrointestinal: soft, non-tender, non-distended, normal bowel sounds - Neurologic Neurologic: no focal deficits Results - Labs CBC & Chem 7: 02/21/17 18:45 02/21/17 15:00 Labs: Laboratory Last Values WBC 13.2 K/mm3 (4.5-11.0) H 02/20/17 19:50 RBC 2.60 M/mm3 (3.65-5.03) L 02/20/17 19:50 Hgb 8.8 gm/dl (11.8-15.2) L 02/20/17 19:50 Hct 25.5 % (35.5-45.6) L 02/20/17 19:50 MCV 98 fl (84-94) H 02/20/17 19:50 MCH 34 pg (28-32) H 02/20/17 19:50 MCHC 35 % (32-34) H 02/20/17 19:50 RDW 22.3 % (13.2-15.2) H 02/20/17 19:50 Plt Count 371 K/mm3 (140-440) 02/20/17 19:50 Lymph % (Auto) 21.1 % (13.4-35.0) 02/20/17 19:50 [place] % (Auto) 8.0 % (0.0-7.3) H 02/20/17 19:50 Eos % (Auto) 1.0 % (0.0-4.3) 02/20/17 19:50 Baso % (Auto) 1.7 % (0.0-1.8) 02/20/17 19:50 Lymph # 2.8 K/mm3 (1.2-5.4) 02/20/17 19:50 [place] # 1.1 K/mm3 (0.0-0.8) H 02/20/17 19:50 Eos # 0.1 K/mm3 (0.0-0.4) 02/20/17 19:50 Baso # 0.2 K/mm3 (0.0-0.1) H 02/20/17 19:50 Seg Neutrophils % 68.2 % (40.0-70.0) 02/20/17 19:50 Seg Neutrophils # 9.0 K/mm3 (1.8-7.7) H 02/20/17 19:50 Percent Retic 11.68 % (0.78-2.58) H 02/20/17 19:50 Sodium 139 mmol/L (137-145) 02/20/17 05:35 Potassium 3.7 mmol/L (3.6-5.0) 02/20/17 05:35 Chloride 100.8 mmol/L (98-107) 02/20/17 05:35 Carbon Dioxide 23 mmol/L (22-30) 02/20/17 05:35 Anion Gap 19 mmol/L 02/20/17 05:35 BUN 7 mg/dL (9-20) L 02/20/17 05:35 Creatinine 0.3 mg/dL (0.8-1.5) L 02/20/17 05:35 Estimated GFR > 60 ml/min 02/20/17 05:35 BUN/Creatinine Ratio 23.33 % 02/20/17 05:35 Glucose 122 mg/dL (75-100) H 02/20/17 05:35 POC Glucose 153 (70-105) H 02/18/17 13:29 Hemoglobin A1c < 4.2 % (4-6) 02/18/17 14:00 Lactic Acid 0.90 mmol/L (0.7-2.0) 02/19/17 11:44 Calcium 8.6 mg/dL (8.4-10.2) 02/20/17 05:35 Total Bilirubin 4.80 mg/dL (0.1-1.2) H 02/18/17 14:00 AST 39 units/L (5-40) 02/18/17 14:00 ALT 29 units/L (7-56) 02/18/17 14:00 Alkaline Phosphatase 92 units/L (35-129) 02/18/17 14:00 Total Protein 6.9 g/dL (6.3-8.2) 02/18/17 14:00 Albumin 4.2 g/dL (3.9-5) 02/18/17 14:00 Albumin/Globulin Ratio 1.6 % 02/18/17 14:00 Urine Color Yellow (Yellow) 02/19/17 15:00 Urine Turbidity Clear (Clear) 02/19/17 15:00 Urine pH 7.0 (5.0-7.0) 02/19/17 15:00 Ur Specific [place] 1.005 (1.003-1.030) 02/19/17 15:00 Urine Protein <15 mg/dl mg/dL (Negative) 02/19/17 15:00 Urine Glucose (UA) Neg mg/dL (Negative) 02/19/17 15:00 Urine Ketones Neg mg/dL (Negative) 02/19/17 15:00 Urine Blood Neg (Negative) 02/19/17 15:00 Urine Nitrite Neg (Negative) 02/19/17 15:00 Urine Bilirubin Neg (Negative) 02/19/17 15:00 Urine Urobilinogen 4.0 mg/dL (<2.0) 02/19/17 15:00 Ur Leukocyte Esterase Neg (Negative) 02/19/17 15:00 Urine WBC (Auto) < 1.0 /HPF (0.0-6.0) 02/19/17 15:00 Urine RBC (Auto) 1.0 /HPF (0.0-6.0) 02/19/17 15:00 U Epithel Cells (Auto) < 1.0 /HPF (0-13.0) 02/19/17 15:00
[2017-02-21 19:38] LABS: Basophils % (Auto) 1.4 % (0.0-1.8); Eosinophils % (Auto) 2.8 % (0.0-4.3); Hemoglobin 8.8 gm/dl (11.8-15.2); Mean Corpuscular HGB Conc 35 % (32-34); Mean Corpuscular Hemoglobin 34 pg (28-32); Mean Corpuscular Volume 98 fl (84-94); Platelet Count 413 K/mm3 (140-440); Red Blood Count 2.56 M/mm3 (3.65-5.03); Reticulocyte % 9.49 % (0.78-2.58); White Blood Count 11.5 K/mm3 (4.5-11.0)
[2017-02-21 19:46] LABS: Red Cell Distribution Width 20.8 % (13.2-15.2)
[2017-02-21 20:05] LABS: Anion Gap 16 mmol/L; Blood Urea Nitrogen 7 mg/dL (9-20); Calcium 8.3 mg/dL (8.4-10.2); Carbon Dioxide 24 mmol/L (22-30); Chloride 102.7 mmol/L (98-107); Glucose 102 mg/dL (75-100); Potassium 3.8 mmol/L (3.6-5.0); Sodium 139 mmol/L (137-145)
--- NOTE | 2017-02-21 22:19 | Consultation ---
History of Present Illness - Reason for Consult Consult date: 02/21/17 - History of Present Illness Patient seen/examined, records reviewed, case d/w him. Past History Past Medical History: other (SC anemia and crisis) Past Surgical History: No surgical history Social history: single, lives with family, smoking Family history: no significant family history, hypertension Medications and Allergies Allergies Allergy/AdvReac Type Severity Reaction Status Date / Time butorphanol tartrate Allergy Unknown Verified 07/24/16 14:50 [From Stadol] ketorolac tromethamine Allergy Shortness Verified 07/24/16 14:50 [From Toradol] of Breath metoclopramide HCl Allergy Unknown Verified 07/24/16 14:50 [From Reglan] morphine Allergy Shortness Verified 07/24/16 14:50 of Breath risperidone [From Risperdal] Allergy Swelling Verified 07/24/16 14:51 temazepam [From Restoril] Allergy Swelling Verified 07/24/16 14:50 nalbuphine HCl [From Nubain] AdvReac Unknown Verified 07/24/16 14:50 Home Medications Medication Instructions Recorded Confirmed Last Taken Type Folic Acid [Folvite] 1 mg PO QDAY 03/06/13 11/06/15 08/11/15 History oxyCODONE 30 mg PO Q6H PRN 11/06/15 11/06/15 Unknown History Folic Acid [Folvite] 1 mg PO QDAY #30 tablet 07/27/16 Unknown Rx Levofloxacin [Levaquin TAB] 500 mg PO QDAY #5 tablet 07/27/16 Unknown Rx oxyCODONE [Roxicodone TAB] 5 mg PO Q6HR PRN #15 tablet 07/27/16 Unknown Rx Active Meds: Active Medications Acetaminophen (Tylenol) 650 mg PO Q4H PRN PRN Reason: Pain MILD(1-3)/Fever >100.5/DOYLE Bisacodyl (Dulcolax) 10 mg [place] QDAY PRN PRN Reason: Constipation unrelieved by MOM Diphenhydramine HCl (Benadryl) 12.5 mg IV Q4H PRN PRN Reason: Itching Last Admin: 02/21/17 18:36 Dose: 12.5 mg Enoxaparin Sodium (Lovenox) 40 mg SUB-Q QDAY AGNIESZKA Last Admin: 02/21/17 10:22 Dose: Not Given Famotidine (Pepcid) 20 mg PO BID [facility] Last Admin: 02/21/17 10:18 Dose: 20 mg Hydromorphone HCl (Dilaudid) 2 mg IV Q3H PRN PRN Reason: Pain, Moderate (4-6) Last Admin: 02/21/17 18:36 Dose: 2 mg Sodium Chloride (Nacl 0.9% 1000 Ml) 1,000 mls @ 150 mls/hr IV DIRECT AGNIESZKA Last Admin: 02/21/17 18:35 Dose: 150 mls/hr Levofloxacin (Levaquin) 750 mg PO DAILY [facility] Magnesium Hydroxide (Milk Of Magnesia) 30 ml PO Q4H PRN PRN Reason: Constipation Ondansetron HCl (Zofran) 4 mg IV Q3H PRN PRN Reason: N/V unrelieved by Reglan Oxycodone/Acetaminophen (Percocet 5/325) 1 tab PO Q6H PRN PRN Reason: Pain, Moderate (4-6) Review of Systems Constitutional: chronic pain Exam - Constitutional Vitals: Temp Pulse Resp BP Pulse Ox 99.5 F 74 20 101/60 98 02/21/17 16:40 02/21/17 16:40 02/21/17 20:39 02/21/17 16:40 02/21/17 16:40 General appearance: Present: mild distress, well-nourished - EENT Eyes: Present: PERRL ENT: hearing intact, clear oral mucosa - Neck Neck: Present: supple, normal ROM - Respiratory Respiratory effort: normal Respiratory: bilateral: CTA - Cardiovascular Heart Sounds: Present: S1 & S2. Absent: rub, click - Extremities Extremities: pulses symmetrical, No edema Peripheral Pulses: within normal limits - Abdominal General gastrointestinal: Present: soft, non-tender, non-distended, normal bowel sounds Male genitourinary: Present: deferred - Rectal Rectal Exam: deferred - Integumentary Integumentary: Present: clear, warm, dry - Musculoskeletal Musculoskeletal: gait normal, strength equal bilaterally - Psychiatric Psychiatric: appropriate mood/affect, intact judgment & insight - Neurologic Neurologic: CNII-XII intact, moves all extremities Results - Labs CBC & Chem 7: 02/21/17 18:45 02/21/17 15:00 Labs: Abnormal lab results 02/21/17 02/21/17 Range/Units 15:00 18:45 WBC 11.5 H (4.5-11.0) K/mm3 RBC 2.56 L (3.65-5.03) M/mm3 Hgb 8.8 L (11.8-15.2) gm/dl Hct 25.0 L (35.5-45.6) % MCV 98 H (84-94) fl MCH 34 H (28-32) pg MCHC 35 H (32-34) % RDW 20.8 H (13.2-15.2) % [place] % (Auto) 7.8 H (0.0-7.3) % [place] # 0.9 H (0.0-0.8) K/mm3 Baso # 0.2 H (0.0-0.1) K/mm3 Percent Retic 9.49 H (0.78-2.58) % BUN 7 L (9-20) mg/dL Creatinine 0.4 L (0.8-1.5) mg/dL Glucose 102 H (75-100) mg/dL Calcium 8.3 L (8.4-10.2) mg/dL Assessment and Plan - Patient Problems (1) Anemia Current Visit: Yes Status: Acute Qualifiers: Anemia type: A Iron deficiency anemia type: I Vitamin B12 deficiency anemia type: V Folate deficiency anemia type: F Bone marrow failure anemia type: B Hemolytic anemia type: H Other causes of anemia: O Chronic kidney disease stage: C Plan to address problem: Will replace when indicated. (2) Sickle cell pain crisis Current Visit: Yes Status: Acute Plan to address problem: Pain control. (3) Dehydration Current Visit: Yes Status: Acute Plan to address problem: hydration. (4) Hyperglycemia Current Visit: Yes Status: Acute Plan to address problem: I had ordered A1C, no result yet.
[2017-02-22] MEDS: DILAUDID IV PRN ×6 (03:16→22:05)
[2017-02-22] MEDS: BENADRYL IV PRN ×6 (03:16→22:04)
[2017-02-22] MEDS ORDERED: LEVAQUIN PO SCH (10:00)
[2017-02-22] MEDS: LOVENOX SUB-Q SCH (10:00)
[2017-02-22] MEDS: PEPCID PO SCH ×2 (10:17→22:04)
[2017-02-22] MEDS: NACL 0.9% 1000 ML 1,000 ML IV SCH ×2 (10:23→16:54)
--- NOTE | 2017-02-22 17:11 | Progress Note ---
Assessment and Plan Assessment and plan: 1. Sickle cell crisis Retic count 12% on admission, 9 currently Monitor H&H; hgb in 8 range Give IV fluids and pain control medications 2. Hyperbilirubinemia Secondary to hemolysis Monitor 3. Dehydration Continue IV fluids 4. SIRS Started on levofloxacin empirically All cultures negative, so will d/c abx Likely stress reaction 5. Hyperglycemia Likely stress reaction, A1c 4 6. Pain management IV narcotics (not on narcotics on a regular basis) 7. DVT prophylaxis History Interval history: Still c/o pain, but better; anticipate discharge tomorrow Hospitalist Physical - Constitutional Vitals: Temp Pulse Resp BP Pulse Ox 98.9 F 66 17 115/75 98 02/22/17 09:36 02/22/17 09:36 02/22/17 14:33 02/22/17 09:36 02/22/17 09:36 General appearance: Present: no acute distress, well-nourished - EENT Eyes: Present: PERRL, EOM intact - Neck Neck: Present: supple, normal ROM. Absent: masses or JVD - Respiratory Respiratory effort: normal Respiratory: bilateral: CTA, negative: rhonchi, wheezing - Cardiovascular Rhythm: regular Heart Sounds: Present: S1 & S2. Absent: systolic murmur - Extremities Extremities: no ischemia - Abdominal General gastrointestinal: soft, non-tender, non-distended, normal bowel sounds - Psychiatric Psychiatric: cooperative - Neurologic Neurologic: CNII-XII intact, no focal deficits Results - Labs CBC & Chem 7: 02/21/17 18:45 02/21/17 15:00 Labs: Laboratory Last Values WBC 11.5 K/mm3 (4.5-11.0) H 02/21/17 18:45 RBC 2.56 M/mm3 (3.65-5.03) L 02/21/17 18:45 Hgb 8.8 gm/dl (11.8-15.2) L 02/21/17 18:45 Hct 25.0 % (35.5-45.6) L 02/21/17 18:45 MCV 98 fl (84-94) H 02/21/17 18:45 MCH 34 pg (28-32) H 02/21/17 18:45 MCHC 35 % (32-34) H 02/21/17 18:45 RDW 20.8 % (13.2-15.2) H 02/21/17 18:45 Plt Count 413 K/mm3 (140-440) 02/21/17 18:45 Lymph % (Auto) 32.1 % (13.4-35.0) 02/21/17 18:45 [place] % (Auto) 7.8 % (0.0-7.3) H 02/21/17 18:45 Eos % (Auto) 2.8 % (0.0-4.3) 02/21/17 18:45 Baso % (Auto) 1.4 % (0.0-1.8) 02/21/17 18:45 Lymph # 3.7 K/mm3 (1.2-5.4) 02/21/17 18:45 [place] # 0.9 K/mm3 (0.0-0.8) H 02/21/17 18:45 Eos # 0.3 K/mm3 (0.0-0.4) 02/21/17 18:45 Baso # 0.2 K/mm3 (0.0-0.1) H 02/21/17 18:45 Seg Neutrophils % 55.9 % (40.0-70.0) 02/21/17 18:45 Seg Neutrophils # 6.4 K/mm3 (1.8-7.7) 02/21/17 18:45 Percent Retic 9.49 % (0.78-2.58) H 02/21/17 18:45 Sodium 139 mmol/L (137-145) 02/21/17 15:00 Potassium 3.8 mmol/L (3.6-5.0) 02/21/17 15:00 Chloride 102.7 mmol/L (98-107) 02/21/17 15:00 Carbon Dioxide 24 mmol/L (22-30) 02/21/17 15:00 Anion Gap 16 mmol/L 02/21/17 15:00 BUN 7 mg/dL (9-20) L 02/21/17 15:00 Creatinine 0.4 mg/dL (0.8-1.5) L 02/21/17 15:00 Estimated GFR > 60 ml/min 02/21/17 15:00 BUN/Creatinine Ratio 17.50 % 02/21/17 15:00 Glucose 102 mg/dL (75-100) H 02/21/17 15:00 POC Glucose 153 (70-105) H 02/18/17 13:29 Hemoglobin A1c < 4.2 % (4-6) 02/18/17 14:00 Lactic Acid 0.90 mmol/L (0.7-2.0) 02/19/17 11:44 Calcium 8.3 mg/dL (8.4-10.2) L 02/21/17 15:00 Total Bilirubin 4.80 mg/dL (0.1-1.2) H 02/18/17 14:00 AST 39 units/L (5-40) 02/18/17 14:00 ALT 29 units/L (7-56) 02/18/17 14:00 Alkaline Phosphatase 92 units/L (35-129) 02/18/17 14:00 Total Protein 6.9 g/dL (6.3-8.2) 02/18/17 14:00 Albumin 4.2 g/dL (3.9-5) 02/18/17 14:00 Albumin/Globulin Ratio 1.6 % 02/18/17 14:00 Urine Color Yellow (Yellow) 02/19/17 15:00 Urine Turbidity Clear (Clear) 02/19/17 15:00 Urine pH 7.0 (5.0-7.0) 02/19/17 15:00 Ur Specific [place] 1.005 (1.003-1.030) 02/19/17 15:00 Urine Protein <15 mg/dl mg/dL (Negative) 02/19/17 15:00 Urine Glucose (UA) Neg mg/dL (Negative) 02/19/17 15:00 Urine Ketones Neg mg/dL (Negative) 02/19/17 15:00 Urine Blood Neg (Negative) 02/19/17 15:00 Urine Nitrite Neg (Negative) 02/19/17 15:00 Urine Bilirubin Neg (Negative) 02/19/17 15:00 Urine Urobilinogen 4.0 mg/dL (<2.0) 02/19/17 15:00 Ur Leukocyte Esterase Neg (Negative) 02/19/17 15:00 Urine WBC (Auto) < 1.0 /HPF (0.0-6.0) 02/19/17 15:00 Urine RBC (Auto) 1.0 /HPF (0.0-6.0) 02/19/17 15:00 U Epithel Cells (Auto) < 1.0 /HPF (0-13.0) 02/19/17 15:00
--- NOTE | 2017-02-22 19:37 | Consultation ---
History of Present Illness - Reason for Consult Consult date: 02/22/17 - History of Present Illness patient seen/examined, labs reviewed, case d/w him. He was not d/c due to increasing retic. Past History Past Medical History: other (SC anemia and crisis) Past Surgical History: No surgical history Social history: single, lives with family, smoking Family history: no significant family history, hypertension Medications and Allergies Allergies Allergy/AdvReac Type Severity Reaction Status Date / Time butorphanol tartrate Allergy Unknown Verified 07/24/16 14:50 [From Stadol] ketorolac tromethamine Allergy Shortness Verified 07/24/16 14:50 [From Toradol] of Breath metoclopramide HCl Allergy Unknown Verified 07/24/16 14:50 [From Reglan] morphine Allergy Shortness Verified 07/24/16 14:50 of Breath risperidone [From Risperdal] Allergy Swelling Verified 07/24/16 14:51 temazepam [From Restoril] Allergy Swelling Verified 07/24/16 14:50 nalbuphine HCl [From Nubain] AdvReac Unknown Verified 07/24/16 14:50 Home Medications Medication Instructions Recorded Confirmed Last Taken Type Folic Acid [Folvite] 1 mg PO QDAY 03/06/13 02/22/17 08/11/15 History oxyCODONE 30 mg PO Q6H PRN 11/06/15 02/22/17 Unknown History Folic Acid [Folvite] 1 mg PO QDAY #30 tablet 07/27/16 02/22/17 Unknown Rx Levofloxacin [Levaquin TAB] 500 mg PO QDAY #5 tablet 07/27/16 02/22/17 1 Day Ago Rx oxyCODONE [Roxicodone TAB] 5 mg PO Q6HR PRN #15 tablet 07/27/16 02/22/17 Unknown Rx Active Meds: Active Medications Acetaminophen (Tylenol) 650 mg PO Q4H PRN PRN Reason: Pain MILD(1-3)/Fever >100.5/DOYLE Bisacodyl (Dulcolax) 10 mg [place] QDAY PRN PRN Reason: Constipation unrelieved by MOM Diphenhydramine HCl (Benadryl) 12.5 mg IV Q4H PRN PRN Reason: Itching Last Admin: 02/22/17 18:01 Dose: 12.5 mg Enoxaparin Sodium (Lovenox) 40 mg SUB-Q QDAY [facility] Last Admin: 02/22/17 10:00 Dose: Not Given Famotidine (Pepcid) 20 mg PO BID [facility] Last Admin: 02/22/17 10:17 Dose: 20 mg Hydromorphone HCl (Dilaudid) 2 mg IV Q3H PRN PRN Reason: Pain, Moderate (4-6) Last Admin: 02/22/17 18:00 Dose: 2 mg Sodium Chloride (Nacl 0.9% 1000 Ml) 1,000 mls @ 150 mls/hr IV DIRECT [facility] Last Admin: 02/22/17 16:54 Dose: 150 mls/hr Levofloxacin (Levaquin) 750 mg PO DAILY [facility] Last Admin: 02/22/17 10:17 Dose: 750 mg Magnesium Hydroxide (Milk Of Magnesia) 30 ml PO Q4H PRN PRN Reason: Constipation Ondansetron HCl (Zofran) 4 mg IV Q3H PRN PRN Reason: N/V unrelieved by Reglan Oxycodone/Acetaminophen (Percocet 5/325) 1 tab PO Q6H PRN PRN Reason: Pain, Moderate (4-6) Review of Systems Constitutional: chronic pain Musculoskeletal: low back pain Exam - Constitutional Vitals: Temp Pulse Resp BP Pulse Ox 98.9 F 73 15 104/59 100 02/22/17 16:00 02/22/17 16:00 02/22/17 18:41 02/22/17 16:00 02/22/17 16:00 General appearance: Present: mild distress, well-nourished - EENT Eyes: Present: PERRL ENT: hearing intact, clear oral mucosa - Neck Neck: Present: supple, normal ROM - Respiratory Respiratory effort: normal Respiratory: bilateral: CTA - Cardiovascular Heart Sounds: Present: S1 & S2. Absent: rub, click - Extremities Extremities: pulses symmetrical, No edema Peripheral Pulses: within normal limits - Abdominal General gastrointestinal: Present: soft, non-tender, non-distended, normal bowel sounds Male genitourinary: Present: deferred - Rectal Rectal Exam: deferred - Integumentary Integumentary: Present: clear, warm, dry - Musculoskeletal Musculoskeletal: gait normal, strength equal bilaterally - Psychiatric Psychiatric: appropriate mood/affect, intact judgment & insight - Neurologic Neurologic: CNII-XII intact, moves all extremities Results - Labs CBC & Chem 7: 02/21/17 18:45 02/21/17 15:00 Labs: Abnormal lab results 02/21/17 02/21/17 Range/Units 15:00 18:45 WBC 11.5 H (4.5-11.0) K/mm3 RBC 2.56 L (3.65-5.03) M/mm3 Hgb 8.8 L (11.8-15.2) gm/dl Hct 25.0 L (35.5-45.6) % MCV 98 H (84-94) fl MCH 34 H (28-32) pg MCHC 35 H (32-34) % RDW 20.8 H (13.2-15.2) % Phelps % (Auto) 7.8 H (0.0-7.3) % Phelps # 0.9 H (0.0-0.8) K/mm3 Baso # 0.2 H (0.0-0.1) K/mm3 Percent Retic 9.49 H (0.78-2.58) % BUN 7 L (9-20) mg/dL Creatinine 0.4 L (0.8-1.5) mg/dL Glucose 102 H (75-100) mg/dL Calcium 8.3 L (8.4-10.2) mg/dL Assessment and Plan - Patient Problems (1) Anemia Current Visit: Yes Status: Acute Qualifiers: Anemia type: A Iron deficiency anemia type: I Vitamin B12 deficiency anemia type: V Folate deficiency anemia type: F Bone marrow failure anemia type: B Hemolytic anemia type: H Other causes of anemia: O Chronic kidney disease stage: C (2) Sickle cell pain crisis Current Visit: Yes Status: Acute (3) Dehydration Current Visit: Yes Status: Acute (4) Hyperglycemia Current Visit: Yes Status: Acute
[2017-02-22 21:31] LABS: Basophils % (Auto) 1.5 % (0.0-1.8); Eosinophils % (Auto) 2.2 % (0.0-4.3); Hematocrit 24.2 % (35.5-45.6); Hemoglobin 8.4 gm/dl (11.8-15.2); Mean Corpuscular HGB Conc 35 % (32-34); Mean Corpuscular Hemoglobin 34 pg (28-32); Mean Corpuscular Volume 98 fl (84-94); Platelet Count 415 K/mm3 (140-440); Red Blood Count 2.49 M/mm3 (3.65-5.03); Reticulocyte % 6.06 % (0.78-2.58); White Blood Count 12.9 K/mm3 (4.5-11.0)
[2017-02-22 21:38] LABS: Red Cell Distribution Width 20.4 % (13.2-15.2)
[2017-02-23] MEDS: NACL 0.9% 1000 ML 1,000 ML IV SCH ×2 (01:58→09:01)
[2017-02-23] MEDS: DILAUDID IV PRN ×4 (01:59→11:58)
[2017-02-23] MEDS: BENADRYL IV PRN ×2 (01:59→06:00)
--- NOTE | 2017-02-23 08:16 | Discharge Summary ---
Providers - Providers Date of Admission: 02/18/17 12:57 Attending physician: THERESA ABARCA MD 02/18/17 11:35 Consult to Physician [CONS] Routine Consulting Provider: KEAGAN BOJORQUEZ Reason For Exam: SICKLE CELL ANEMIA WITH PAIN Place consult to:: DR. Fariba BOJORQUEZ Notified:: . Phone number called:: [phone] Was contact made?: Yes If yes, spoke with:: DR. BOJORQUEZ Time called:: 11:22 Primary care physician: KEAGAN BOJORQUEZ Hospitalization Hospital course: 31 y/o AAF sent from Dr Bojorquez's office for severe pain all over.Pain is 10/ 10 and more in chest back and lower extremities 1. Sickle cell crisis Retic count 12% on admission, 9 currently Monitor H&H; hgb in 8 range Give IV fluids and pain control medications 2. Hyperbilirubinemia Secondary to hemolysis Monitor 3. Dehydration Continue IV fluids 4. SIRS Started on levofloxacin empirically All cultures negative, so will d/c abx Likely stress reaction 5. Hyperglycemia Likely stress reaction, A1c 4 6. Pain management IV narcotics (not on narcotics on a regular basis) 7. DVT prophylaxis Disposition: -01 TO HOME OR SELFCARE Time spent for discharge: 33 minutes Core Measure Documentation - Palliative Care Palliative Care/ Comfort Measures: Not Applicable - Core Measures Any of the following diagnoses?: none Exam - Constitutional Vitals: Temp Pulse Resp BP Pulse Ox 98.8 F 74 16 110/73 100 02/22/17 22:12 02/22/17 22:12 02/22/17 22:12 02/22/17 22:12 02/22/17 22:12 General appearance: Present: no acute distress, well-nourished - EENT Eyes: Present: PERRL ENT: hearing intact, clear oral mucosa - Neck Neck: Present: supple, normal ROM - Respiratory Respiratory effort: normal Respiratory: bilateral: CTA - Cardiovascular Heart Sounds: Present: S1 & S2. Absent: rub, click - Extremities Extremities: pulses symmetrical, No edema Peripheral Pulses: within normal limits - Abdominal General gastrointestinal: Present: soft, non-tender, non-distended, normal bowel sounds Male genitourinary: Present: normal - Integumentary Integumentary: Present: clear, warm, dry - Musculoskeletal Musculoskeletal: gait normal, strength equal bilaterally - Psychiatric Psychiatric: appropriate mood/affect, intact judgment & insight - Neurologic Neurologic: CNII-XII intact, moves all extremities Plan Follow up with: KEAGAN BOJORQUEZ DO [Primary Care Provider] - 7 Days Prescriptions: Folic Acid [Folvite] 1 mg PO QDAY #30 tablet oxyCODONE [Roxicodone TAB] 5 mg PO Q6HR PRN #15 tablet PRN Reason: Pain oxyCODONE 30 mg PO Q6H PRN #7 PRN Reason: Pain
[2017-02-23] MEDS: LOVENOX SUB-Q SCH (08:59)
[2017-02-23] MEDS: PEPCID PO SCH (09:02)
[2017-02-23 09:34] LABS: Anion Gap 17 mmol/L; BUN/Creatinine Ratio 23.33; Blood Urea Nitrogen 7 mg/dL (9-20); Calcium 8.4 mg/dL (8.4-10.2); Carbon Dioxide 24 mmol/L (22-30); Glucose 74 mg/dL (75-100); Potassium 3.4 mmol/L (3.6-5.0); Sodium 142 mmol/L (137-145)
[2017-02-23 09:35] LABS: Albumin/Globulin Ratio 1.6 %; Bilirubin,Direct 0.4 mg/dL (0-0.2); Bilirubin,Total 4.4 mg/dL (0.1-1.2); Total Protein 6.5 g/dL (6.3-8.2)
[2017-02-23 09:46] VITALS: BP 115/74
[2017-02-23] MEDS ORDERED: TRIPLE ANTIBIOTIC TP ONE (11:59)
[2017-02-23] MEDS ORDERED: FLUSH HEPARIN IV ONE (11:59)
== END 2017-02-23 14:09 | disposition home or self-care (01) | DRG 812 ==
LOC: 3A 11:32 → UNDOADMIN 11:32 → 3A 12:57
PROVIDERS: ADMIT Internal Medicine; ATTEND Internal Medicine
DX: D57.00 Hb-SS disease with crisis, unspecified (principal); E86.0 Dehydration; E80.6 Other disorders of bilirubin metabolism; R65.10 Systemic inflammatory response syndrome (SIRS) of non-infectious origin without acute organ dysfunction; Z88.8 Allergy status to other drugs, medicaments and biological substances; Z82.49 Family history of ischemic heart disease and other diseases of the circulatory system; Z88.5 Allergy status to narcotic agent; R73.9 Hyperglycemia, unspecified
CPT/HCPCS: 36415; 80048; 80053; 80074; 81001; 82140; 82962; 83036; 85025; 85045; 87040; 87086; A6250; J1170; J1200; J1642; J1650; J1956; J7030

== ENCOUNTER 2019-05-11 14:35 | Inpatient (IN) | payer MEDICAID ==
[2019-05-11] MEDS ORDERED: ONDANSETRON 4 MG/2 ML INJ IV PRN (16:15)
[2019-05-11] MEDS ORDERED: oxyCODONE 5 MG TAB PO PRN (16:27)
[2019-05-11] MEDS: diphenhydrAMINE 50 MG/ML VIAL IV SCH ×3 (17:59→23:30)
[2019-05-11] MEDS: HYDROmorphone 2 MG/1 ML INJ IV SCH ×3 (18:00→23:28)
[2019-05-11] MEDS: D5W/0.2% NACL 1,000 ML IV SCH ×2 (18:07→23:56)
--- NOTE | 2019-05-11 18:18 | History and Physical Report ---
History of Present Illness Date of examination: 05/11/19 Date of admission: 05/11/19 15:47 Chief complaint: Diffuse joint pain/ dehydration. History of present illness: Patient presented to the office, with complaints of diffuse joint pain. he was seen/examined, and looked quite dry, and in a lot of pain. He was admitted , for sxs management , and control. He will get pain control, hydration, and adjust labs as needed. He will get anti emetic , for N/V, and do a KUB. Past History Past Medical History: anemia Social history: single, lives with family Family history: no significant family history Medications and Allergies Allergies Allergy/AdvReac Type Severity Reaction Status Date / Time butorphanol tartrate Allergy Unknown Verified 07/24/16 14:50 [From Stadol] ketorolac tromethamine Allergy Shortness Verified 07/24/16 14:50 [From Toradol] of Breath metoclopramide HCl Allergy Unknown Verified 07/24/16 14:50 [From Reglan] morphine Allergy Shortness Verified 07/24/16 14:50 of Breath risperidone [From Risperdal] Allergy Swelling Verified 07/24/16 14:51 temazepam [From Restoril] Allergy Swelling Verified 07/24/16 14:50 nalbuphine HCl [From Nubain] AdvReac Unknown Verified 07/24/16 14:50 Home Medications Medication Instructions Recorded Confirmed Last Taken Type Folic Acid [Folvite] 1 mg PO QDAY #30 tablet 02/23/17 Unknown Rx oxyCODONE 30 mg PO Q6H PRN #7 02/23/17 Unknown Rx oxyCODONE [roxiCODONE] 5 mg PO Q6HR PRN #15 tablet 02/23/17 Unknown Rx Active Meds: Active Medications Diphenhydramine HCl (Benadryl) 12.5 mg IV Q3H [facility] Last Admin: 05/11/19 17:59 Dose: 12.5 mg Documented by: Heparin Sodium (Porcine) (Heparin) 5,000 unit SUB-Q Q12HR [facility] Hydromorphone HCl (Dilaudid) 3 mg IV Q3H [facility] Last Admin: 05/11/19 18:00 Dose: 3 mg Documented by: Dextrose/Sodium Chloride (D5ns 0.2%) 1,000 mls @ 250 mls/hr IV DIRECT [facility] Last Admin: 05/11/19 18:07 Dose: 250 mls/hr Documented by: Ondansetron HCl (Zofran) 4 mg IV Q12H PRN PRN Reason: Nausea And Vomiting Oxycodone HCl (Roxicodone) 30 mg PO Q8H PRN PRN Reason: BREAKTHRU Zolpidem Tartrate (Ambien) 10 mg PO QHS [facility] Review of Systems Constitutional: fatigue, weakness, chronic pain Exam - Constitutional Vitals: Temp Pulse Resp BP Pulse Ox 99.4 F 80 20 138/82 97 05/11/19 17:10 05/11/19 17:10 05/11/19 18:00 05/11/19 17:10 05/11/19 17:10 General appearance: Present: mild distress, well-nourished - EENT Eyes: Present: PERRL ENT: hearing intact, clear oral mucosa - Neck Neck: Present: supple, normal ROM - Respiratory Respiratory effort: normal Respiratory: bilateral: CTA - Cardiovascular Heart Sounds: Present: S1 & S2. Absent: rub, click - Extremities Extremities: pulses symmetrical, No edema Peripheral Pulses: within normal limits - Abdominal General gastrointestinal: Present: soft, non-tender, non-distended, normal bowel sounds Male genitourinary: Present: deferred - Rectal Rectal Exam: deferred - Integumentary Integumentary: Present: clear, warm, dry - Musculoskeletal Musculoskeletal: gait normal, strength equal bilaterally - Psychiatric Psychiatric: appropriate mood/affect, intact judgment & insight - Neurologic Neurologic: CNII-XII intact, moves all extremities Assessment and Plan - Patient Problems (1) Anemia Current Visit: No Status: Acute Plan to address problem: monitor labs, and address . (2) Dehydration Current Visit: No Status: Acute Plan to address problem: Hydration (3) Intractable nausea and vomiting Current Visit: Yes Status: Acute Plan to address problem: KUB, anti emetic.
[2019-05-11 18:29] LABS: Basophils # (Auto) 0.1 K/mm3 (0.0-0.1); Basophils % (Auto) 1.2 % (0.0-1.8); Hematocrit 27.7 % (35.5-45.6); Hemoglobin 9.7 gm/dl (11.8-15.2); Lymphocytes # (Auto) 1.2 K/mm3 (1.2-5.4); Lymphocytes % (Auto) 9.6 % (13.4-35.0); Mean Corpuscular HGB Conc 35 % (32-34); Mean Corpuscular Volume 98 fl (84-94); Monocytes # (Auto) 0.9 K/mm3 (0.0-0.8); Monocytes % (Auto) 7.1 % (0.0-7.3); Red Blood Count 2.82 M/mm3 (3.65-5.03)
[2019-05-11 18:30] LABS: Platelet Count 378 K/mm3 (140-440); Red Cell Distribution Width 21.5 % (13.2-15.2)
[2019-05-11 18:54] LABS: Alanine Aminotransferase 19 units/L (7-56); Albumin 4.9 g/dL (3.9-5); BUN/Creatinine Ratio 33; Blood Urea Nitrogen 10 mg/dL (9-20); Calcium 9.4 mg/dL (8.4-10.2); Hemolysis Index 9; Iron 87 ug/dL (49-181)
--- NOTE | 2019-05-11 20:21 | XRay Report ---
ABDOMEN 1 VIEW(S) INDICATION / CLINICAL INFORMATION: Nausea and vomiting, abdominal pain. COMPARISON: None available. FINDINGS: TUBES / LINES: None. BOWEL GAS PATTERN/EXTRALUMINAL GAS: No significant abnormality. No pneumatosis or secondary signs of free air. ADDITIONAL FINDINGS: RUQ surgical clips likely indicate prior cholecystectomy. Left total hip arthrop lasty is in place. IMPRESSION: 1. No acute findings. Signer Name: Chano Gale MD Signed: 05/11/2019 8:17 PM Workstation Name: [id number]
[2019-05-11] MEDS: ZOLPIDEM 5 MG TAB PO SCH (23:28)
[2019-05-11] MEDS: HEPARIN 5,000 UNIT/1 ML VIAL SUB-Q SCH (23:28)
[2019-05-12] MEDS: HYDROmorphone 2 MG/1 ML INJ IV SCH ×8 (02:45→23:06)
[2019-05-12] MEDS: diphenhydrAMINE 50 MG/ML VIAL IV SCH ×8 (02:45→23:05)
[2019-05-12] MEDS: D5W/0.2% NACL 1,000 ML IV SCH ×5 (05:38→23:03)
[2019-05-12] MEDS: HEPARIN 5,000 UNIT/1 ML VIAL SUB-Q SCH ×2 (10:00→22:00)
--- NOTE | 2019-05-12 17:50 | Progress Note ---
Assessment and Plan - Patient Problems (1) Anemia Current Visit: No Status: Acute Plan to address problem: monitor labs, and address . (2) Dehydration Current Visit: No Status: Acute Plan to address problem: Hydration (3) Intractable nausea and vomiting Current Visit: Yes Status: Acute Plan to address problem: KUB, anti emetic. Subjective Date of service: 05/12/19 Principal diagnosis: SCD/Pain cirisis/ anemia, dehydration. Interval history: Patient seen/examined, resting in bed, labs/records reviewed,case d/w patient.He rates pain level at 7/10.Will continue with current management. Objective - Constitutional Vitals: Vital Signs - 12hr 05/12/19 14:25 O2 Sat by Pulse 96 Oximetry General appearance: Present: mild distress, well-nourished - EENT Eyes: PERRL, EOM intact ENT: hearing intact, clear oral mucosa Ears: bilateral: normal - Neck Neck: supple, normal ROM - Respiratory Respiratory effort: normal Respiratory: bilateral: CTA - Breasts Breasts: deferred - Cardiovascular Rhythm: regular Heart Sounds: Present: S1 & S2. Absent: gallop, rub Extremities: pulses intact, No edema, normal color, Full ROM - Gastrointestinal General gastrointestinal: Present: soft, non-tender, non-distended, normal bowel sounds Rectal Exam: deferred - Genitourinary Male genitourinary: deferred - Integumentary Integumentary: clear, warm, dry - Musculoskeletal Musculoskeletal: 1, strength equal bilaterally - Neurologic Neurologic: moves all extremities - Psychiatric Psychiatric: memory intact, appropriate mood/affect, intact judgment & insight - Labs CBC & Chem 7: 05/11/19 Unknown 05/11/19 Unknown Labs: Abnormal lab results 05/11/19 05/11/19 05/11/19 Range/Units Unknown Unknown Unknown WBC 12.2 H (4.5-11.0) K/mm3 RBC 2.82 L (3.65-5.03) M/mm3 Hgb 9.7 L (11.8-15.2) gm/dl Hct 27.7 L (35.5-45.6) % MCV 98 H (84-94) fl MCH 34 H (28-32) pg MCHC 35 H (32-34) % RDW 21.5 H (13.2-15.2) % Lymph % (Auto) 9.6 L (13.4-35.0) % Hitchcock # 0.9 H (0.0-0.8) K/mm3 Seg Neutrophils % 82.1 H (40.0-70.0) % Seg Neutrophils # 10.0 H (1.8-7.7) K/mm3 Percent Retic (0.78-2.58) % Creatinine 0.3 L (0.8-1.5) mg/dL Glucose 159 H (75-100) mg/dL Total Bilirubin 3.90 H (0.1-1.2) mg/dL Lactate Dehydrogenase 540 H (91-180) units/L Total Protein 8.3 H (6.3-8.2) g/dL // Range/Units Unknown WBC (4.5-11.0) K/mm3 RBC (3.65-5.03) M/mm3 Hgb (11.8-15.2) gm/dl Hct (35.5-45.6) % MCV (84-94) fl MCH (28-32) pg MCHC (32-34) % RDW (13.2-15.2) % Lymph % (Auto) (13.4-35.0) % Hitchcock # (0.0-0.8) K/mm3 Seg Neutrophils % (40.0-70.0) % Seg Neutrophils # (1.8-7.7) K/mm3 Percent Retic 10.65 H (0.78-2.58) % Creatinine (0.8-1.5) mg/dL Glucose (75-100) mg/dL Total Bilirubin (0.1-1.2) mg/dL Lactate Dehydrogenase (91-180) units/L Total Protein (6.3-8.2) g/dL
[2019-05-12] MEDS: ZOLPIDEM 5 MG TAB PO SCH (21:59)
[2019-05-13] MEDS: diphenhydrAMINE 50 MG/ML VIAL IV SCH ×8 (02:03→23:01)
[2019-05-13] MEDS: HYDROmorphone 2 MG/1 ML INJ IV SCH ×8 (02:04→23:01)
[2019-05-13] MEDS: D5W/0.2% NACL 1,000 ML IV SCH ×4 (05:20→22:04)
[2019-05-13] MEDS: HEPARIN 5,000 UNIT/1 ML VIAL SUB-Q SCH ×2 (10:00→22:07)
--- NOTE | 2019-05-13 14:38 | Progress Note ---
Assessment and Plan - Patient Problems (1) Anemia Current Visit: No Status: Acute Plan to address problem: monitor labs, and address . continue the same (2) Dehydration Current Visit: No Status: Acute Plan to address problem: Hydration continue the same. (3) Intractable nausea and vomiting Current Visit: Yes Status: Acute Plan to address problem: KUB, anti emetic. Subjective Date of service: 05/13/19 Principal diagnosis: SCD/Pain cirisis/ anemia, dehydration. Interval history: Patient seen/examined, resting in bed, labs/records reviewed,case d/w patient.He rates pain level at 7/10.Will continue with current management. Patient seen/examined, resting in bed, records reviewed, case d/w patient. pain better today, and will plan D/c in 1-2 days. Objective - Constitutional Vitals: Vital Signs - 12hr 05/13/19 05/13/19 05/13/19 05:07 05:24 07:36 Temperature 98.2 F Pulse Rate 72 Respiratory 17 18 Rate Blood Pressure 114/74 O2 Sat by Pulse 97 100 Oximetry General appearance: Present: mild distress, well-nourished - EENT Eyes: PERRL, EOM intact ENT: hearing intact, clear oral mucosa Ears: bilateral: normal - Neck Neck: supple, normal ROM - Respiratory Respiratory effort: normal Respiratory: bilateral: CTA - Breasts Breasts: deferred - Cardiovascular Rhythm: regular Heart Sounds: Present: S1 & S2. Absent: gallop, rub Extremities: pulses intact, No edema, normal color, Full ROM - Gastrointestinal General gastrointestinal: Present: soft, non-tender, non-distended, normal bowel sounds Rectal Exam: deferred - Genitourinary Male genitourinary: deferred - Integumentary Integumentary: clear, warm, dry - Musculoskeletal Musculoskeletal: 1, strength equal bilaterally - Neurologic Neurologic: moves all extremities - Psychiatric Psychiatric: memory intact, appropriate mood/affect, intact judgment & insight - Labs CBC & Chem 7: 05/11/19 Unknown 05/11/19 Unknown
[2019-05-13] MEDS: ZOLPIDEM 5 MG TAB PO SCH (22:03)
[2019-05-14] MEDS: diphenhydrAMINE 50 MG/ML VIAL IV SCH ×8 (01:58→23:02)
[2019-05-14] MEDS: HYDROmorphone 2 MG/1 ML INJ IV SCH ×8 (01:58→23:02)
[2019-05-14] MEDS: D5W/0.2% NACL 1,000 ML IV SCH ×4 (05:03→20:15)
[2019-05-14] MEDS: HEPARIN 5,000 UNIT/1 ML VIAL SUB-Q SCH ×2 (11:03→22:32)
--- NOTE | 2019-05-14 19:08 | Progress Note ---
Assessment and Plan - Patient Problems (1) Anemia Current Visit: No Status: Acute Plan to address problem: monitor labs, and address . continue the same (2) Dehydration Current Visit: No Status: Acute Plan to address problem: Hydration continue the same. (3) Intractable nausea and vomiting Current Visit: Yes Status: Acute Plan to address problem: KUB, anti emetic. Subjective Date of service: 05/14/19 Principal diagnosis: SCD/Pain cirisis/ anemia, dehydration. Interval history: Patient seen/examined, resting in bed, labs/records reviewed,case d/w patient.He rates pain level at 7/10.Will continue with current management. Patient seen/examined, resting in bed, records reviewed, case d/w patient. pain better today, and will plan D/c in 1-2 days. Patient seen/examined, resting in bed, records reviewed, case d/w patient. will d/c home tomorrow. Objective - Constitutional Vitals: Vital Signs - 12hr 05/14/19 05/14/19 12:24 16:16 Temperature 98.6 F 98.6 F Pulse Rate 84 92 H Respiratory 15 20 Rate Blood Pressure 112/70 143/88 O2 Sat by Pulse 95 99 Oximetry General appearance: Present: mild distress, well-nourished - EENT Eyes: PERRL, EOM intact ENT: hearing intact, clear oral mucosa Ears: bilateral: normal - Neck Neck: supple, normal ROM - Respiratory Respiratory effort: normal Respiratory: bilateral: CTA - Breasts Breasts: deferred - Cardiovascular Rhythm: regular Heart Sounds: Present: S1 & S2. Absent: gallop, rub Extremities: pulses intact, No edema, normal color, Full ROM - Gastrointestinal General gastrointestinal: Present: soft, non-tender, non-distended, normal bowel sounds Rectal Exam: deferred - Genitourinary Male genitourinary: deferred - Integumentary Integumentary: clear, warm, dry - Musculoskeletal Musculoskeletal: 1, strength equal bilaterally - Neurologic Neurologic: moves all extremities - Psychiatric Psychiatric: memory intact, appropriate mood/affect, intact judgment & insight - Labs CBC & Chem 7: 05/11/19 Unknown 05/11/19 Unknown
--- NOTE | 2019-05-14 19:39 | Discharge Summary ---
Providers - Providers Date of Admission: 05/11/19 15:47 Date of discharge: 05/15/19 Attending physician: KEAGAN BOJORQUEZ Primary care physician: KEAGAN BOJORQUEZ Hospitalization Reason for admission: SCD/Anemia. Condition: Fair Hospital course: Patient presented to the office, with CC of diffuse joint pain. Examined, admitted to the hospital, for pain/sxs control. he was hydrated, treated with pain meds, and labs monitored.He will be d/c home in am. Disposition: DC-01 TO HOME OR SELFCARE - Discharge Diagnoses (1) Anemia Status: Chronic (2) Dehydration Status: Resolved (3) Intractable nausea and vomiting Status: Resolved (4) Sickle cell pain crisis Status: Acute Core Measure Documentation - Palliative Care Palliative Care/ Comfort Measures: Not Applicable - Core Measures Any of the following diagnoses?: none Exam - Constitutional Vitals: Temp Pulse Resp BP Pulse Ox 98.6 F 92 H 20 143/88 99 05/14/19 16:16 05/14/19 16:16 05/14/19 16:16 05/14/19 16:16 05/14/19 16:16 General appearance: Present: mild distress, well-nourished - EENT Eyes: Present: PERRL ENT: hearing intact, clear oral mucosa - Neck Neck: Present: supple, normal ROM - Respiratory Respiratory effort: normal Respiratory: bilateral: CTA - Cardiovascular Heart Sounds: Present: S1 & S2. Absent: rub, click - Extremities Extremities: pulses symmetrical, No edema Peripheral Pulses: within normal limits - Abdominal General gastrointestinal: Present: soft, non-tender, non-distended, normal bowel sounds Male genitourinary: Present: deferred - Rectal Rectal Exam: deferred - Integumentary Integumentary: Present: clear, warm, dry - Musculoskeletal Musculoskeletal: gait normal, strength equal bilaterally - Psychiatric Psychiatric: appropriate mood/affect, intact judgment & insight - Neurologic Neurologic: CNII-XII intact, moves all extremities Plan Activity: no restrictions Diet: regular Follow up with: KEAGAN BOJORQUEZ DO [Primary Care Provider] - 7 Days
[2019-05-14] MEDS: ZOLPIDEM 5 MG TAB PO SCH (22:31)
[2019-05-15 00:43] VITALS: BP 115/81
[2019-05-15] MEDS: diphenhydrAMINE 50 MG/ML VIAL IV SCH ×3 (02:04→08:04)
[2019-05-15] MEDS: HYDROmorphone 2 MG/1 ML INJ IV SCH ×3 (02:04→08:04)
[2019-05-15] MEDS: D5W/0.2% NACL 1,000 ML IV SCH (02:08)
[2019-05-15] MEDS ORDERED: NEOMY 3.5 MG/BACIT 400 UNITS/POLY B 5000 UNITS/GM OINT PACKET TP ONE (09:00)
[2019-05-15] MEDS: HEPARIN 5,000 UNIT/1 ML VIAL SUB-Q SCH (09:23)
== END 2019-05-15 10:00 | disposition home or self-care (01) | DRG 812 ==
LOC: 3A 14:35 → UNDOADMIN 14:35 → 3A 15:47
PROVIDERS: ADMIT Internal Medicine Hematology & Oncology; ATTEND Internal Medicine Hematology & Oncology
DX: D57.00 Hb-SS disease with crisis, unspecified (principal); D64.9 Anemia, unspecified; Z88.6 Allergy status to analgesic agent; Z88.5 Allergy status to narcotic agent; Z88.8 Allergy status to other drugs, medicaments and biological substances; Z79.899 Other long term (current) drug therapy
CPT/HCPCS: 36415; 74018; 80053; 82728; 83540; 83615; 85025; 85045; G0378; A6250; J1170; J1200; J1642; J1644

== ENCOUNTER 2019-08-06 14:23 | Inpatient (IN) | payer MEDICAID ==
[2019-08-06] MEDS ORDERED: ONDANSETRON 4 MG/2 ML INJ IV PRN (17:01)
[2019-08-06] MEDS ORDERED: diphenhydrAMINE 50 MG/ML VIAL IV PRN (17:03)
[2019-08-06] MEDS ORDERED: oxyCODONE 5 MG TAB PO PRN (17:29)
[2019-08-06] MEDS ORDERED: ACETAMINOPHEN 325 MG TAB PO PRN (17:40)
[2019-08-06] MEDS ORDERED: D5W/0.2% NACL 1,000 ML IV SCH (18:00)
[2019-08-06] MEDS: HYDROmorphone 2 MG/1 ML INJ IV PRN ×2 (18:10→21:02)
[2019-08-06] MEDS: diphenhydrAMINE 50 MG/ML VIAL IV PRN ×2 (18:12→21:03)
[2019-08-06] MEDS: ZOLPIDEM 5 MG TAB PO SCH (21:04)
[2019-08-06] MEDS: HEPARIN 5,000 UNIT/1 ML VIAL SUB-Q SCH (22:05)
--- NOTE | 2019-08-06 22:53 | History and Physical Report ---
History of Present Illness Date of examination: 08/06/19 Date of admission: 08/06/19 16:46 Chief complaint: SCD/Pain crisis, anemia./dehydration. History of present illness: Patient presented to the office, after not able to control his pain crisis at home.His pain was rated at 9/10 in the office, attempts made, was unsuccessful, hence , this admission for sxs control. and management.He will be hydrated, given pain control, and monitor labs. Past History Past Medical History: anemia Social history: single, lives with family Family history: no significant family history Medications and Allergies Allergies Allergy/AdvReac Type Severity Reaction Status Date / Time butorphanol tartrate Allergy Unknown Verified 07/24/16 14:50 [From Stadol] ketorolac tromethamine Allergy Shortness Verified 07/24/16 14:50 [From Toradol] of Breath metoclopramide HCl Allergy Unknown Verified 07/24/16 14:50 [From Reglan] morphine Allergy Shortness Verified 07/24/16 14:50 of Breath risperidone [From Risperdal] Allergy Swelling Verified 07/24/16 14:51 temazepam [From Restoril] Allergy Swelling Verified 07/24/16 14:50 nalbuphine HCl [From Nubain] AdvReac Unknown Verified 07/24/16 14:50 Home Medications Medication Instructions Recorded Confirmed Last Taken Type Folic Acid [Folvite] 1 mg PO QDAY #30 tablet 02/23/17 07/18/19 05/10/19 18:00 Rx oxyCODONE 30 mg PO Q6H PRN #7 02/23/17 07/18/19 05/10/19 Rx oxyCODONE [roxiCODONE] 5 mg PO Q6HR PRN #15 tablet 02/23/17 07/18/19 Unknown Rx Active Meds: Active Medications Acetaminophen (Tylenol) 650 mg PO Q6H PRN PRN Reason: Pain, Mild (1-3) Diphenhydramine HCl (Benadryl) 12.5 mg IV Q3H PRN PRN Reason: Itching Last Admin: 08/06/19 21:03 Dose: 12.5 mg Documented by: Folic Acid (Folvite) 1 mg PO QDAY AGNIESZKA Heparin Sodium (Porcine) (Heparin) 5,000 unit SUB-Q Q12HR AGNIESZKA Hydromorphone HCl (Dilaudid) 3 mg IV Q3H PRN PRN Reason: Pain , Severe (7-10) Stop: 08/07/19 17:16 Last Admin: 08/06/19 21:02 Dose: 3 mg Documented by: Hydromorphone HCl (Dilaudid) 2 mg IV Q3H PRN PRN Reason: Pain , Severe (7-10) Dextrose/Sodium Chloride (D5ns 0.2%) 1,000 mls @ 250 mls/hr IV DIRECT [facility] Ondansetron HCl (Zofran) 4 mg IV Q8H PRN PRN Reason: Nausea And Vomiting Oxycodone HCl (Roxicodone) 30 mg PO Q8H PRN PRN Reason: Pain, Moderate (4-6) Zolpidem Tartrate (Ambien) 10 mg PO QHS [facility] Last Admin: 08/06/19 21:04 Dose: 10 mg Documented by: Review of Systems Constitutional: fatigue, chronic pain Musculoskeletal: low back pain Exam - Constitutional Vitals: Temp Pulse Resp BP Pulse Ox 98.5 F 119 H 20 112/78 93 08/06/19 17:28 08/06/19 17:28 08/06/19 17:28 08/06/19 17:28 08/06/19 17:28 General appearance: Present: mild distress, well-nourished - EENT Eyes: Present: PERRL ENT: hearing intact, clear oral mucosa - Neck Neck: Present: supple, normal ROM - Respiratory Respiratory effort: normal Respiratory: bilateral: CTA - Cardiovascular Heart Sounds: Present: S1 & S2. Absent: rub, click - Extremities Extremities: pulses symmetrical, No edema Peripheral Pulses: within normal limits - Abdominal General gastrointestinal: Present: soft, non-tender, non-distended, normal bowel sounds Male genitourinary: Present: deferred - Rectal Rectal Exam: deferred - Integumentary Integumentary: Present: clear, warm, dry - Musculoskeletal Musculoskeletal: gait normal, strength equal bilaterally - Psychiatric Psychiatric: appropriate mood/affect, intact judgment & insight - Neurologic Neurologic: CNII-XII intact, moves all extremities Assessment and Plan - Patient Problems (1) Sickle cell anemia Current Visit: Yes Status: Chronic Plan to address problem: monitor labs. (2) Sickle cell anemia with crisis Current Visit: Yes Status: Acute Plan to address problem: pain control (3) Dehydration Current Visit: Yes Status: Acute Plan to address problem: hydration
[2019-08-07] MEDS: diphenhydrAMINE 50 MG/ML VIAL IV PRN ×8 (00:08→21:03)
[2019-08-07] MEDS: HYDROmorphone 2 MG/1 ML INJ IV PRN ×7 (00:08→21:02)
[2019-08-07] MEDS: D5W/0.2% NACL 1,000 ML IV SCH ×5 (00:09→22:30)
[2019-08-07 00:55] LABS: Hematocrit 20.6 % (35.5-45.6); Hemoglobin 7.2 gm/dl (11.8-15.2); Mean Corpuscular HGB Conc 35 % (32-34); Mean Corpuscular Volume 97 fl (84-94); Platelet Count 325 K/mm3 (140-440); Red Blood Count 2.13 M/mm3 (3.65-5.03)
[2019-08-07 01:04] LABS: Red Cell Distribution Width 22.9 % (13.2-15.2)
[2019-08-07 01:17] LABS: Alanine Aminotransferase 42 units/L (7-56); Albumin 3.8 g/dL (3.9-5); BUN/Creatinine Ratio 15; Blood Urea Nitrogen 6 mg/dL (9-20); Calcium 8.5 mg/dL (8.4-10.2); Hemolysis Index 25
[2019-08-07 05:24] LABS: Basophils % (Manual) 0 % (0.0-1.8); Total Cells Counted 100
[2019-08-07 05:25] LABS: Sickle Cells 1+
[2019-08-07 05:26] LABS: Anisocytosis 1+; Burr Cells Rare
[2019-08-07 05:27] LABS: Platelet Estimate Consistent w Auto
[2019-08-07] MEDS: FOLIC ACID 1 MG TAB PO SCH (09:03)
[2019-08-07] MEDS: HEPARIN 5,000 UNIT/1 ML VIAL SUB-Q SCH ×2 (09:03→22:29)
[2019-08-07 13:10] LABS: Amphetamine Screen,Urine PRESUMPTIVE NEGATIVE; Benzodiazepines Screen,Urine PRESUMPTIVE NEGATIVE; Cannabinoid Screen,Urine PRESUMPTIVE NEGATIVE; Cocaine Screen,Urine PRESUMPTIVE NEGATIVE; Methadone Screen,Urine PRESUMPTIVE NEGATIVE; Opiate Screen,Urine PRESUMPTIVE NEGATIVE
[2019-08-07] MEDS ORDERED: HYDROmorphone 2 MG/1 ML INJ IV PRN (17:26)
[2019-08-07] MEDS ORDERED: LIDOCAINE-MPF (1%) 10 MG/1 ML VIAL 5 ML INFILTRATI ONE (19:05)
--- NOTE | 2019-08-07 19:10 | Progress Note ---
Assessment and Plan - Patient Problems (1) Sickle cell anemia Current Visit: Yes Status: Chronic Plan to address problem: monitor labs. (2) Sickle cell anemia with crisis Current Visit: Yes Status: Acute Plan to address problem: pain control (3) Dehydration Current Visit: Yes Status: Acute Plan to address problem: hydration (4) Leukocytosis Current Visit: Yes Status: Acute Plan to address problem: will treat empirically. Subjective Date of service: 08/07/19 Interval history: Patient seen/examined, resting in bed, labs reviewed, will check new labs in am, and if stable, will start D/c plans. Objective - Constitutional Vitals: Vital Signs - 12hr 08/07/19 08/07/19 08/07/19 09:41 12:09 18:32 Temperature 98.6 F 98.2 F Pulse Rate 96 H 101 H Respiratory 18 18 Rate Blood Pressure 120/77 122/78 O2 Sat by Pulse 100 97 97 Oximetry General appearance: Present: mild distress, well-nourished - EENT Eyes: PERRL, EOM intact ENT: hearing intact, clear oral mucosa Ears: bilateral: normal - Neck Neck: supple, normal ROM - Respiratory Respiratory effort: normal Respiratory: bilateral: CTA - Breasts Breasts: deferred - Cardiovascular Rhythm: regular Heart Sounds: Present: S1 & S2. Absent: gallop, rub Extremities: pulses intact, No edema, normal color, Full ROM - Gastrointestinal General gastrointestinal: Present: soft, non-tender, non-distended, normal bowel sounds - Genitourinary Male genitourinary: deferred - Integumentary Integumentary: clear, warm, dry - Musculoskeletal Musculoskeletal: 1, strength equal bilaterally - Neurologic Neurologic: moves all extremities - Psychiatric Psychiatric: memory intact, appropriate mood/affect, intact judgment & insight - Labs CBC & Chem 7: 08/07/19 00:10 08/07/19 00:10 Labs: Abnormal lab results 08/07/19 08/07/19 Range/Units 00:10 00:10 WBC 15.1 H (4.5-11.0) K/mm3 RBC 2.13 L (3.65-5.03) M/mm3 Hgb 7.2 L (11.8-15.2) gm/dl Hct 20.6 L (35.5-45.6) % MCV 97 H (84-94) fl MCH 34 H (28-32) pg MCHC 35 H (32-34) % RDW 22.9 H (13.2-15.2) % Monocytes % (Manual) 9.0 H (0.0-7.3) % Seg Neutrophils # Man 8.0 H (1.8-7.7) K/mm3 Monocytes # (Manual) 1.4 H (0.0-0.8) K/mm3 Eosinophils # (Manual) 0.6 H (0.0-0.4) K/mm3 Percent Retic 16.52 H (0.78-2.58) % BUN 6 L (9-20) mg/dL Creatinine 0.4 L (0.8-1.5) mg/dL Glucose 127 H (75-100) mg/dL Total Bilirubin 3.30 H (0.1-1.2) mg/dL AST 50 H (5-40) units/L Lactate Dehydrogenase 449 H (91-180) units/L Albumin 3.8 L (3.9-5) g/dL
[2019-08-07] MEDS: ZOLPIDEM 5 MG TAB PO SCH (22:29)
[2019-08-08] MEDS: D5W/0.2% NACL 1,000 ML IV SCH ×4 (00:11→21:01)
[2019-08-08] MEDS: diphenhydrAMINE 50 MG/ML VIAL IV PRN ×9 (00:11→23:59)
[2019-08-08] MEDS: HYDROmorphone 2 MG/1 ML INJ IV PRN ×9 (00:11→23:59)
[2019-08-08 06:20] LABS: Hematocrit 24.1 % (35.5-45.6); Hemoglobin 8.5 gm/dl (11.8-15.2)
[2019-08-08] MEDS: FOLIC ACID 1 MG TAB PO SCH (09:14)
[2019-08-08] MEDS: HEPARIN 5,000 UNIT/1 ML VIAL SUB-Q SCH ×2 (09:14→21:08)
[2019-08-08] MEDS: cefTRIAXone/NS 1 GM/50 ML 1 GM/50 ML BAG IV SCH (11:37)
--- NOTE | 2019-08-08 18:49 | Discharge Summary ---
Providers - Providers Date of Admission: 08/06/19 16:46 Date of discharge: 08/09/19 Attending physician: KEAGAN BOJORQUEZ Primary care physician: KEAGAN BOJORQUEZ Hospitalization Hospital course: Patient presented to the office, with diffuse pain, not controlled in the office or at home, hence admitted , for sxs management. He was treated with hydration, pain med, anbut declined abx, foe elevated WBC. His pain is 6/10 at this time, and he is seen now/examined, no new issues, and will d/c home tomorrow. Disposition: DC-01 TO HOME OR SELFCARE - Discharge Diagnoses (1) Sickle cell anemia Status: Chronic (2) Sickle cell anemia with crisis Status: Chronic (3) Dehydration Status: Resolved (4) Leukocytosis Status: Resolved Core Measure Documentation - Palliative Care Palliative Care/ Comfort Measures: Not Applicable - Core Measures Any of the following diagnoses?: none Exam - Constitutional Vitals: Temp Pulse Resp BP Pulse Ox 98.8 F 89 18 117/78 100 08/08/19 17:36 08/08/19 17:36 08/08/19 17:36 08/08/19 17:36 08/08/19 17:36 General appearance: Present: mild distress, well-nourished - EENT Eyes: Present: PERRL ENT: hearing intact, clear oral mucosa - Neck Neck: Present: supple, normal ROM - Respiratory Respiratory effort: normal Respiratory: bilateral: CTA - Cardiovascular Heart Sounds: Present: S1 & S2. Absent: rub, click - Extremities Extremities: pulses symmetrical, No edema Peripheral Pulses: within normal limits - Abdominal General gastrointestinal: Present: soft, non-tender, non-distended, normal bowel sounds Male genitourinary: Present: deferred - Rectal Rectal Exam: deferred - Integumentary Integumentary: Present: clear, warm, dry - Musculoskeletal Musculoskeletal: gait normal, strength equal bilaterally - Psychiatric Psychiatric: appropriate mood/affect, intact judgment & insight - Neurologic Neurologic: CNII-XII intact, moves all extremities Plan Activity: no restrictions Diet: regular Follow up with: KEAGAN BOJORQUEZ DO [Primary Care Provider] - 7 Days
[2019-08-08] MEDS: ZOLPIDEM 5 MG TAB PO SCH (21:01)
[2019-08-09] MEDS: D5W/0.2% NACL 1,000 ML IV SCH (02:59)
[2019-08-09] MEDS: HYDROmorphone 2 MG/1 ML INJ IV PRN ×3 (02:59→08:59)
[2019-08-09] MEDS: diphenhydrAMINE 50 MG/ML VIAL IV PRN ×3 (02:59→08:59)
[2019-08-09 06:51] VITALS: BP 107/75
[2019-08-09] MEDS: FOLIC ACID 1 MG TAB PO SCH (08:59)
[2019-08-09] MEDS: HEPARIN 5,000 UNIT/1 ML VIAL SUB-Q SCH (09:09)
[2019-08-09] MEDS: cefTRIAXone/NS 1 GM/50 ML 1 GM/50 ML BAG IV SCH (09:10)
[2019-08-09] MEDS ORDERED: NEOMY 3.5 MG/BACIT 400 UNITS/POLY B 5000 UNITS/GM OINT PACKET TP ONE (10:00)
== END 2019-08-09 10:40 | disposition home or self-care (01) | DRG 812 ==
LOC: UNDOADMIN 14:23 → 3A 14:23
PROVIDERS: ADMIT Internal Medicine Hematology & Oncology; ATTEND Internal Medicine Hematology & Oncology
DX: D57.00 Hb-SS disease with crisis, unspecified (principal); E86.0 Dehydration; Z88.6 Allergy status to analgesic agent; Z88.5 Allergy status to narcotic agent; Z88.8 Allergy status to other drugs, medicaments and biological substances
CPT/HCPCS: 36415; 80053; 80307; 83615; 85007; 85014; 85018; 85025; 85045; 87086; G0378; A6250; J0696; J1170; J1200; J1642; J1644

== ENCOUNTER 2019-10-04 21:12 | Inpatient (IN) | payer MEDICAID ==
[2019-10-04] MEDS ORDERED: HYDROmorphone 2 MG/1 ML INJ IV ONE ×2 (21:54→22:35)
[2019-10-04] MEDS ORDERED: SODIUM CHLORIDE 0.9% 1000 ML 1,000 ML IV ONE (21:54)
[2019-10-04] MEDS ORDERED: diphenhydrAMINE 50 MG/ML VIAL IV ONE (21:54)
--- NOTE | 2019-10-04 21:57 | Emergency Department Report ---
ED General Adult HPI - General Chief complaint: Sickle Cell Crisis Stated complaint: BODYACHES Time Seen by Provider: 10/04/19 21:45 Source: patient Mode of arrival: Ambulatory Limitations: No Limitations - History of Present Illness Initial comments: 33-year-old male with history of sickle cell presents to ED with possible pain crisis. Patient states for the last 24 hours he has been experiencing pain in his lower back, hips, bilateral arms. Patient has prescription for Roxicodone and Dilaudid at home, which he states has not been helping with the pain. Patient denies any fever, cough, chest pain, shortness of breath. -: days(s) (1) Location: back, left, right, upper extremity Quality: aching Consistency: constant Improves with: none Worsens with: none Associated Symptoms: denies: chest pain, cough, fever/chills, shortness of breath - Related Data Home Medications Medication Instructions Recorded Confirmed Last Taken FLUoxetine [PROzac] 10 mg PO QDAY 08/28/19 10/05/19 Unknown OLANzapine [ZyPREXA] 2.5 mg PO QDAY 10/05/19 10/05/19 Unknown Allergies Allergy/AdvReac Type Severity Reaction Status Date / Time butorphanol tartrate Allergy Unknown Verified 08/28/19 01:23 [From Stadol] ceftriaxone [From Rocephin] Allergy Unknown Verified 08/28/19 01:23 ketorolac tromethamine Allergy Shortness Verified 08/28/19 01:23 [From Toradol] of Breath metoclopramide HCl Allergy Unknown Verified 08/28/19 01:23 [From Reglan] morphine Allergy Shortness Verified 08/28/19 01:23 of Breath risperidone [From Risperdal] Allergy Swelling Verified 08/28/19 01:23 temazepam [From Restoril] Allergy Swelling Verified 08/28/19 01:23 nalbuphine HCl [From Nubain] AdvReac Unknown Verified 08/28/19 01:23 ED Review of Systems ROS: Stated complaint: BODYACHES Other details as noted in HPI Comment: All other systems reviewed and negative Constitutional: denies: chills, fever Respiratory: denies: cough, shortness of breath Cardiovascular: denies: chest pain Musculoskeletal: as per HPI ED Past Medical Hx - Past Medical History Previous Medical History?: Yes Hx Congestive Heart Failure: No Hx Diabetes: No Hx Sickle Cell Disease: Yes Hx Arthritis: No Hx Asthma: No Hx COPD: No Hx HIV: No Additional medical history: Enlarged heart - Surgical History Past Surgical History?: Yes Hx Cholecystectomy: Yes Additional Surgical History: 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), port lt arm and removal, NEW PORT RT CHEST - Social History Smoking Status: Never Smoker Substance Use Type: None - Medications Home Medications: Home Medications Medication Instructions Recorded Confirmed Last Taken Type FLUoxetine [PROzac] 10 mg PO QDAY 08/28/19 10/05/19 Unknown History OLANzapine [ZyPREXA] 2.5 mg PO QDAY 10/05/19 10/05/19 Unknown History ED Physical Exam - General Limitations: No Limitations General appearance: alert, in no apparent distress - Head Head exam: Present: atraumatic, normocephalic - Eye Eye exam: Present: normal appearance, EOMI - ENT ENT exam: Present: mucous membranes moist - Neck Neck exam: Present: normal inspection - Respiratory Respiratory exam: Present: normal lung sounds bilaterally. Absent: respiratory distress - Cardiovascular Cardiovascular Exam: Present: normal rhythm, tachycardia - GI/Abdominal GI/Abdominal exam: Present: soft. Absent: distended, tenderness - Extremities Exam Extremities exam: Present: normal inspection - Neurological Exam Neurological exam: Present: alert, oriented X3 - Psychiatric Psychiatric exam: Present: normal affect, normal mood - Skin Skin exam: Present: warm, dry, intact, normal color ED Course Vital Signs 10/04/19 10/04/19 10/04/19 21:22 21:25 23:15 Temperature 98.9 F 98.6 F Pulse Rate 102 H 98 H Respiratory 20 17 21 Rate Blood Pressure 115/77 Blood Pressure 113/75 [Right] O2 Sat by Pulse 100 100 99 Oximetry 10/04/19 23:45 Temperature Pulse Rate 93 H Respiratory 17 Rate Blood Pressure Blood Pressure 114/72 [Right] O2 Sat by Pulse 98 Oximetry - Consultations Consultation #1: 10/04/19 23:11 Spoke w/ Dr Fabian. Will admit the patient. ED Medical Decision Making - Lab Data Result diagrams: 10/04/19 23:54 10/04/19 22:00 - Medical Decision Making 33 yo M w/ sickle cell pain crisis. Unable to control pain at home w/ PO meds. Initial H&H resulted at 5.7/16.3. This was repeated and resulted at 7.9/23.0. Last hemoglobin on 09/24/19 was 9.2. Retic count currently 6. Spoke w/ pt's cloth opener hand, Dr Fabian, and he will be admitting the patient. Bridge orders placed. - Differential Diagnosis sickle cell crisis Critical care attestation.: If time is entered above; I have spent that time in minutes in the direct care of this critically ill patient, excluding procedure time. ED Disposition Clinical Impression: Sickle cell pain crisis Disposition: DC-09 OP ADMIT IP TO THIS HOSP Is pt being admited?: Yes Condition: Stable Time of Disposition: 22:40
[2019-10-04 22:17] LABS: Basophils # (Auto) 0.1 K/mm3 (0.0-0.1); Eosinophils # (Auto) 0.1 K/mm3 (0.0-0.4); Lymphocytes % (Auto) 32.3 % (13.4-35.0); Mean Corpuscular HGB Conc 35 % (32-34); Mean Corpuscular Volume 96 fl (84-94); Monocytes # (Auto) 0.4 K/mm3 (0.0-0.8); Platelet Count 273 K/mm3 (140-440)
[2019-10-04 22:25] LABS: Hematocrit 16.3 % (35.5-45.6); Hemoglobin 5.7 gm/dl (11.8-15.2); Red Cell Distribution Width 20.7 % (13.2-15.2)
[2019-10-04 22:46] LABS: BUN/Creatinine Ratio 18; Blood Urea Nitrogen 7 mg/dL (9-20); Calcium 8.3 mg/dL (8.4-10.2); Hemolysis Index 11
[2019-10-04] MEDS: D5W/0.2% NACL 1,000 ML IV SCH (23:15)
[2019-10-04 23:24] LABS: Hematocrit TNR % (35.5-45.6); Hemoglobin TNR gm/dl (11.8-15.2)
[2019-10-05 00:09] LABS: Hemoglobin 7.9 gm/dl (11.8-15.2)
[2019-10-05] MEDS: HYDROmorphone 2 MG/1 ML INJ IV PRN ×7 (01:27→21:20)
[2019-10-05] MEDS: diphenhydrAMINE 50 MG/ML VIAL IV PRN ×7 (01:27→21:21)
[2019-10-05] MEDS: D5W/0.2% NACL 1,000 ML IV SCH ×2 (06:01→21:19)
--- NOTE | 2019-10-05 22:40 | History and Physical Report ---
History of Present Illness Date of examination: 10/04/19 Date of admission: 10/04/19 22:41 Chief complaint: SCD/acute pain crisis. History of present illness: Jessica presented to the ED , with cc of diffuse joint pain, non controlled at home, hence the ER. patient was evaluated by the ED doc, and admitted , for sxs managem,ent , and control.His initial hemoglobin , was 5.7, and i had doubted it, and asked for a recheck, in which case it came up to 7.9.Jessica will be treaTED WITH PAIN MEDS, HYDRATION, AND MONITOR LABS. once his sxs controlled, he will be d/c home. Past History Past Medical History: anemia Social history: no significant social history, single, lives with family Family history: no significant family history Medications and Allergies Allergies Allergy/AdvReac Type Severity Reaction Status Date / Time butorphanol tartrate Allergy Unknown Verified 08/28/19 01:23 [From Stadol] ceftriaxone [From Rocephin] Allergy Unknown Verified 08/28/19 01:23 ketorolac tromethamine Allergy Shortness Verified 08/28/19 01:23 [From Toradol] of Breath metoclopramide HCl Allergy Unknown Verified 08/28/19 01:23 [From Reglan] morphine Allergy Shortness Verified 08/28/19 01:23 of Breath risperidone [From Risperdal] Allergy Swelling Verified 08/28/19 01:23 temazepam [From Restoril] Allergy Swelling Verified 08/28/19 01:23 nalbuphine HCl [From Nubain] AdvReac Unknown Verified 08/28/19 01:23 Home Medications Medication Instructions Recorded Confirmed Last Taken Type FLUoxetine [PROzac] 10 mg PO QDAY 08/28/19 10/05/19 Unknown History OLANzapine [ZyPREXA] 2.5 mg PO QDAY 10/05/19 10/05/19 Unknown History Active Meds: Active Medications Diphenhydramine HCl (Benadryl) 12.5 mg IV Q3HR PRN PRN Reason: pain Last Admin: 10/05/19 21:21 Dose: 12.5 mg Documented by: Hydromorphone HCl (Dilaudid) 3 mg IV Q3HR PRN PRN Reason: Pain , Severe (7-10) Last Admin: 10/05/19 21:20 Dose: 3 mg Documented by: Dextrose/Sodium Chloride (D5ns 0.2%) 1,000 mls @ 250 mls/hr IV DIRECT AGNIESZKA Last Admin: 10/05/19 21:19 Dose: 250 mls/hr Documented by: Review of Systems Constitutional: chronic pain Exam - Constitutional Vitals: Temp Pulse Resp BP Pulse Ox 99.4 F 95 H 20 115/73 98 10/05/19 19:34 10/05/19 19:34 10/05/19 19:34 10/05/19 19:34 10/05/19 19:34 General appearance: Present: mild distress, well-nourished - EENT Eyes: Present: PERRL ENT: hearing intact, clear oral mucosa - Neck Neck: Present: supple, normal ROM - Respiratory Respiratory effort: normal Respiratory: bilateral: CTA - Cardiovascular Heart Sounds: Present: S1 & S2. Absent: rub, click - Extremities Extremities: pulses symmetrical, No edema Peripheral Pulses: within normal limits - Abdominal General gastrointestinal: Present: soft, non-tender, non-distended, normal bowel sounds Male genitourinary: Present: deferred - Rectal Rectal Exam: deferred - Integumentary Integumentary: Present: clear, warm, dry - Musculoskeletal Musculoskeletal: gait normal, strength equal bilaterally - Psychiatric Psychiatric: appropriate mood/affect, intact judgment & insight - Neurologic Neurologic: CNII-XII intact, moves all extremities Results - Labs CBC & Chem 7: 10/04/19 23:54 10/04/19 22:00 Labs: Abnormal lab results 10/04/19 10/04/19 Range/Units 22:00 23:54 Hgb 7.9 L (11.8-15.2) gm/dl Hct 23.0 L D (35.5-45.6) % BUN 7 L (9-20) mg/dL Creatinine 0.4 L (0.8-1.5) mg/dL Glucose 106 H (75-100) mg/dL Calcium 8.3 L (8.4-10.2) mg/dL Assessment and Plan - Patient Problems (1) Sickle cell pain crisis Current Visit: Yes Status: Acute Plan to address problem: Pain control as current. (2) Anemia Current Visit: Yes Status: Acute Plan to address problem: replacement transfusion. when needed. (3) Dehydration Current Visit: Yes Status: Acute Plan to address problem: hydration. (4) Avascular necrosis Current Visit: Yes Status: Acute Plan to address problem: supportive care.
[2019-10-05] MEDS ORDERED: oxyCODONE 5 MG TAB PO PRN (22:46)
[2019-10-06] MEDS: HYDROmorphone 2 MG/1 ML INJ IV PRN ×8 (00:30→23:27)
[2019-10-06] MEDS: diphenhydrAMINE 50 MG/ML VIAL IV PRN ×8 (00:31→23:28)
[2019-10-06] MEDS: D5W/0.2% NACL 1,000 ML IV SCH ×3 (08:35→20:10)
[2019-10-06] MEDS: HEPARIN 5,000 UNIT/1 ML VIAL SUB-Q SCH ×2 (09:41→23:29)
--- NOTE | 2019-10-06 19:27 | Progress Note ---
Assessment and Plan - Patient Problems (1) Sickle cell pain crisis Current Visit: Yes Status: Acute Plan to address problem: Pain control as current. (2) Anemia Current Visit: Yes Status: Acute Plan to address problem: replacement transfusion. when needed. (3) Dehydration Current Visit: Yes Status: Acute Plan to address problem: hydration. (4) Avascular necrosis Current Visit: Yes Status: Acute Plan to address problem: supportive care. Subjective Date of service: 10/06/19 Interval history: patient seen/examined, resting in bed, rated his pain at 7/10, at this time.Will continue with current management. Will plan d/c home as soon as his pain control better. Objective - Constitutional Vitals: Vital Signs - 12hr 10/06/19 10/06/19 10/06/19 08:19 09:57 09:58 Temperature 98.6 F Pulse Rate 96 H Pulse Rate [ Radial] Pulse Rate [ Right Apical] Respiratory 18 16 Rate Respiratory Rate [Chest] Blood Pressure 111/72 115/79 O2 Sat by Pulse 99 Oximetry 10/06/19 10/06/19 10/06/19 10:28 11:00 11:31 Temperature 98.8 F Pulse Rate 97 H Pulse Rate [ 84 Radial] Pulse Rate [ 84 Right Apical] Respiratory 16 15 18 Rate Respiratory Rate [Chest] Blood Pressure 103/71 O2 Sat by Pulse 97 96 Oximetry 10/06/19 10/06/19 10/06/19 12:00 13:15 13:16 Temperature Pulse Rate 101 H Pulse Rate [ Radial] Pulse Rate [ Right Apical] Respiratory 16 Rate Respiratory 15 Rate [Chest] Blood Pressure 123/84 O2 Sat by Pulse 99 Oximetry 10/06/19 10/06/19 10/06/19 13:46 16:18 16:42 Temperature 98.6 F Pulse Rate 105 H Pulse Rate [ Radial] Pulse Rate [ Right Apical] Respiratory 16 18 16 Rate Respiratory Rate [Chest] Blood Pressure 112/77 O2 Sat by Pulse 99 Oximetry 10/06/19 17:12 Temperature Pulse Rate Pulse Rate [ Radial] Pulse Rate [ Right Apical] Respiratory 16 Rate Respiratory Rate [Chest] Blood Pressure O2 Sat by Pulse Oximetry General appearance: Present: mild distress, well-nourished - EENT Eyes: PERRL, EOM intact ENT: hearing intact, clear oral mucosa Ears: bilateral: normal - Neck Neck: supple, normal ROM - Respiratory Respiratory effort: normal Respiratory: bilateral: CTA - Breasts Breasts: deferred - Cardiovascular Rhythm: regular Heart Sounds: Present: S1 & S2. Absent: gallop, rub Extremities: pulses intact, No edema, normal color, Full ROM - Gastrointestinal General gastrointestinal: Present: soft, non-tender, non-distended, normal bowel sounds Rectal Exam: deferred - Genitourinary Male genitourinary: deferred - Integumentary Integumentary: clear, warm, dry - Musculoskeletal Musculoskeletal: 1, strength equal bilaterally - Neurologic Neurologic: moves all extremities - Psychiatric Psychiatric: memory intact, appropriate mood/affect, intact judgment & insight - Labs CBC & Chem 7: 10/04/19 23:54 10/04/19 22:00
[2019-10-07] MEDS: diphenhydrAMINE 50 MG/ML VIAL IV PRN ×8 (02:22→23:10)
[2019-10-07] MEDS: HYDROmorphone 2 MG/1 ML INJ IV PRN ×8 (02:22→23:10)
[2019-10-07] MEDS: D5W/0.2% NACL 1,000 ML IV SCH ×3 (05:19→17:27)
[2019-10-07] MEDS: HEPARIN 5,000 UNIT/1 ML VIAL SUB-Q SCH ×2 (11:25→23:10)
--- NOTE | 2019-10-07 18:22 | Progress Note ---
Assessment and Plan - Patient Problems (1) Sickle cell pain crisis Current Visit: Yes Status: Acute Plan to address problem: Pain control as current. (2) Anemia Current Visit: Yes Status: Acute Plan to address problem: replacement transfusion. when needed. (3) Dehydration Current Visit: Yes Status: Acute Plan to address problem: hydration. (4) Avascular necrosis Current Visit: Yes Status: Acute Plan to address problem: supportive care. Subjective Date of service: 10/07/19 Interval history: patient seen/examined, resting in bed, rated his pain at 7/10, at this time.Will continue with current management. Will plan d/c home as soon as his pain control better. patient seen/examined, resting in bed. records reviewed, case d/w he. He rated pain at 6/10. Will plan to d/c in the next 24-48hrs. Objective - Constitutional Vitals: Vital Signs - 12hr 10/07/19 10/07/19 10/07/19 07:27 08:14 08:29 Temperature 98.4 F Pulse Rate 75 Respiratory 16 20 Rate Blood Pressure 113/74 O2 Sat by Pulse 98 97 Oximetry 10/07/19 10/07/19 10/07/19 08:44 11:05 11:20 Temperature 98.0 F Pulse Rate 90 Respiratory 20 16 20 Rate Blood Pressure 110/81 O2 Sat by Pulse 99 Oximetry 10/07/19 10/07/19 10/07/19 11:50 14:22 15:43 Temperature 97.0 F L Pulse Rate 97 H Respiratory 20 20 18 Rate Blood Pressure 112/76 O2 Sat by Pulse 100 Oximetry 10/07/19 17:26 Temperature Pulse Rate Respiratory 20 Rate Blood Pressure O2 Sat by Pulse Oximetry General appearance: Present: mild distress, well-nourished - EENT Eyes: PERRL, EOM intact ENT: hearing intact, clear oral mucosa Ears: bilateral: normal - Neck Neck: supple, normal ROM - Respiratory Respiratory effort: normal Respiratory: bilateral: CTA - Breasts Breasts: deferred - Cardiovascular Rhythm: regular Heart Sounds: Present: S1 & S2. Absent: gallop, rub Extremities: pulses intact, No edema, normal color, Full ROM - Gastrointestinal General gastrointestinal: Present: soft, non-tender, non-distended, normal bowel sounds Rectal Exam: deferred - Genitourinary Male genitourinary: deferred - Integumentary Integumentary: clear, warm, dry - Musculoskeletal Musculoskeletal: 1, strength equal bilaterally - Neurologic Neurologic: moves all extremities - Psychiatric Psychiatric: memory intact, appropriate mood/affect, intact judgment & insight - Labs CBC & Chem 7: 10/04/19 23:54 10/04/19 22:00
[2019-10-08] MEDS: diphenhydrAMINE 50 MG/ML VIAL IV PRN ×8 (02:09→22:55)
[2019-10-08] MEDS: HYDROmorphone 2 MG/1 ML INJ IV PRN ×8 (02:10→22:53)
[2019-10-08] MEDS: D5W/0.2% NACL 1,000 ML IV SCH ×3 (02:18→17:20)
[2019-10-08 06:22] LABS: Hematocrit 22.6 % (35.5-45.6); Hemoglobin 7.8 gm/dl (11.8-15.2); Mean Corpuscular Volume 94 fl (84-94)
[2019-10-08 06:23] LABS: Basophils % (Auto) 1.8 % (0.0-1.8); Eosinophils % (Auto) 5.6 % (0.0-4.3); Lymphocytes % (Auto) 45.3 % (13.4-35.0); Mean Corpuscular HGB Conc 35 % (32-34); Monocytes % (Auto) 6.5 % (0.0-7.3); Platelet Count 427 K/mm3 (140-440); Red Cell Distribution Width 21.1 % (13.2-15.2)
[2019-10-08 06:24] LABS: Basophils # (Auto) 0.2 K/mm3 (0.0-0.1); Eosinophils # (Auto) 0.5 K/mm3 (0.0-0.4); Lymphocytes # (Auto) 3.9 K/mm3 (1.2-5.4); Monocytes # (Auto) 0.6 K/mm3 (0.0-0.8)
[2019-10-08] MEDS: FLUoxetine 10 MG TAB PO SCH (09:45)
[2019-10-08] MEDS: HEPARIN 5,000 UNIT/1 ML VIAL SUB-Q SCH ×2 (10:17→22:00)
--- NOTE | 2019-10-08 23:48 | Discharge Summary ---
Providers - Providers Date of Admission: 10/04/19 22:41 Date of discharge: 10/09/19 Attending physician: KEAGAN BOJORQUEZ Primary care physician: STAFF ATTORNEY Hospitalization Reason for admission: SCD/anemia/pain crisis. Condition: Stable Hospital course: Patient presented to the ER, with CC of diffuse joint pain, He was admitted , for sxs management, and control.He was treated , with pain meds, [id number], and lab monitoring. His pain is stated at 5-6/10 , and hew will be d/c home tomorrow noon hrs , when ride arrives. Disposition: DC-01 TO HOME OR SELFCARE - Discharge Diagnoses (1) Sickle cell pain crisis Status: Acute (2) Anemia Status: Chronic (3) Dehydration Status: Acute (4) Avascular necrosis Status: Chronic Core Measure Documentation - Palliative Care Palliative Care/ Comfort Measures: Not Applicable - Core Measures Any of the following diagnoses?: none Exam - Constitutional Vitals: Temp Pulse Resp BP Pulse Ox 98.9 F 100 H 18 119/69 98 10/08/19 19:56 10/08/19 19:56 10/08/19 19:56 10/08/19 19:56 10/08/19 19:56 General appearance: Present: mild distress, well-nourished - EENT Eyes: Present: PERRL ENT: hearing intact, clear oral mucosa - Neck Neck: Present: supple, normal ROM - Respiratory Respiratory effort: normal Respiratory: bilateral: CTA - Cardiovascular Heart Sounds: Present: S1 & S2. Absent: rub, click - Extremities Extremities: pulses symmetrical, No edema Peripheral Pulses: within normal limits - Abdominal General gastrointestinal: Present: soft, non-tender, non-distended, normal bowel sounds Male genitourinary: Present: deferred - Rectal Rectal Exam: deferred - Integumentary Integumentary: Present: clear, warm, dry - Musculoskeletal Musculoskeletal: gait normal, strength equal bilaterally - Psychiatric Psychiatric: appropriate mood/affect, intact judgment & insight - Neurologic Neurologic: CNII-XII intact, moves all extremities Plan Activity: no restrictions Diet: regular Follow up with: PRIMARY CARE, [Primary Care Provider] - 3-5 Days
[2019-10-09] MEDS: D5W/0.2% NACL 1,000 ML IV SCH ×2 (00:46→06:37)
[2019-10-09] MEDS: HYDROmorphone 2 MG/1 ML INJ IV PRN ×4 (02:00→11:07)
[2019-10-09] MEDS: diphenhydrAMINE 50 MG/ML VIAL IV PRN ×4 (02:01→11:06)
[2019-10-09] MEDS: HEPARIN 5,000 UNIT/1 ML VIAL SUB-Q SCH (10:37)
[2019-10-09 11:05] VITALS: BP 110/79
[2019-10-09] MEDS: FLUoxetine 10 MG TAB PO SCH (11:07)
== END 2019-10-09 12:11 | disposition home or self-care (01) | DRG 812 ==
LOC: ED 21:12 → 4A 22:41
PROVIDERS: ADMIT Internal Medicine Hematology & Oncology; ATTEND Internal Medicine Hematology & Oncology
DX: D57.00 Hb-SS disease with crisis, unspecified (principal); M87.9 Osteonecrosis, unspecified; E86.0 Dehydration; Z88.8 Allergy status to other drugs, medicaments and biological substances; Z88.5 Allergy status to narcotic agent; Z79.899 Other long term (current) drug therapy
CPT/HCPCS: 36415; 80048; 85014; 85018; 85025; 85045; 86850; 86900; 86901; 96365; 96375; G0378; J1170; J1200; J1642; J1644; J7030

== ENCOUNTER 2019-11-13 18:03 | Inpatient (IN) | payer MEDICAID ==
[2019-11-13] MEDS ORDERED: ONDANSETRON 4 MG/2 ML INJ IV ONE (20:08)
[2019-11-13] MEDS ORDERED: HYDROmorphone 1 MG/1 ML INJ IV STA (20:08)
[2019-11-13] MEDS ORDERED: diphenhydrAMINE 50 MG/ML VIAL IV ONE ×2 (20:09→22:54)
--- NOTE | 2019-11-13 20:44 | XRay Report ---
CHEST 2 VIEWS INDICATION / CLINICAL INFORMATION: Lung pain with deep breath. COMPARISON: Chest radiograph 11/06/2015 FINDINGS: SUPPORT DEVICES: Left chest port catheter intact with tip in the lower SVC. Previous right port is no longer present. HEART / MEDIASTINUM: No significant abnormality. LUNGS / PLEURA: Hazy opacities in the left greater than right lower and middle lung zones, seen in th e lower lobes on lateral projection. No pneumothorax or pleural fluid. ADDITIONAL FINDINGS: Cholecystectomy clips. IMPRESSION: Nonspecific bilateral lower lobe opacities could be from pneumonia, mild edema and/or multifocal atel ectasis Signer Name: Lee Townsend MD Signed: 11/13/2019 8:40 PM Workstation Name: [id number]
[2019-11-13] MEDS ORDERED: HYDROmorphone 1 MG/1 ML INJ IV ONE ×3 (20:56→22:54)
--- NOTE | 2019-11-13 20:56 | Emergency Department Report ---
ED General Adult HPI - General Chief complaint: Sickle Cell Crisis Stated complaint: SICKLE CELL CRISIS Time Seen by Provider: 11/13/19 20:05 Source: patient Mode of arrival: Ambulatory Limitations: No Limitations - History of Present Illness Initial comments: Chief complaint: "I have pain in my upper body." HPI: Mr. Del Toro is a 33-year-old male with history of sickle cell disease. He had has had 3 days of upper body pain in the arms. He has pain in his lungs. He has shortness of breath. He denies fever. Denies cough. 10 on 10 pain. Gradual pain. Diffuse chest pain. Current medications include Roxicodone 60 mg tablets, 75 mcg fentanyl patch. Hydromorphone [address] Fabian -: Gradual, days(s) (3) Location: chest, left, right, upper extremity Radiation: non-radiation Severity scale (0 -10): 10 Quality: aching, constant Consistency: constant Improves with: none Worsens with: none Associated Symptoms: chest pain - Related Data Home Medications Medication Instructions Recorded Confirmed Last Taken FLUoxetine [PROzac] 10 mg PO QDAY 08/28/19 10/05/19 Unknown OLANzapine [ZyPREXA] 2.5 mg PO QDAY 10/05/19 10/05/19 Unknown Allergies Allergy/AdvReac Type Severity Reaction Status Date / Time butorphanol tartrate Allergy Unknown Verified 08/28/19 01:23 [From Stadol] ceftriaxone [From Rocephin] Allergy Unknown Verified 08/28/19 01:23 ketorolac tromethamine Allergy Shortness Verified 08/28/19 01:23 [From Toradol] of Breath metoclopramide HCl Allergy Unknown Verified 08/28/19 01:23 [From Reglan] morphine Allergy Shortness Verified 08/28/19 01:23 of Breath risperidone [From Risperdal] Allergy Swelling Verified 08/28/19 01:23 temazepam [From Restoril] Allergy Swelling Verified 08/28/19 01:23 nalbuphine HCl [From Nubain] AdvReac Unknown Verified 08/28/19 01:23 ED Review of Systems ROS: Stated complaint: SICKLE CELL CRISIS Other details as noted in HPI Comment: All other systems reviewed and negative Constitutional: denies: fever, malaise Respiratory: denies: cough, shortness of breath Cardiovascular: chest pain Gastrointestinal: denies: abdominal pain, nausea, vomiting Musculoskeletal: myalgia. denies: joint swelling, arthralgia ED Past Medical Hx - Past Medical History Previous Medical History?: Yes Hx Congestive Heart Failure: No Hx Diabetes: No Hx Sickle Cell Disease: Yes Hx Arthritis: No Hx Asthma: No Hx COPD: No Hx HIV: No Additional medical history: Enlarged heart - Surgical History Past Surgical History?: Yes Hx Cholecystectomy: Yes Additional Surgical History: 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), port lt arm and removal, NEW PORT RT CHEST - Social History Smoking Status: Never Smoker Substance Use Type: None - Medications Home Medications: Home Medications Medication Instructions Recorded Confirmed Last Taken Type FLUoxetine [PROzac] 10 mg PO QDAY 08/28/19 10/05/19 Unknown History OLANzapine [ZyPREXA] 2.5 mg PO QDAY 10/05/19 10/05/19 Unknown History ED Physical Exam - General Limitations: No Limitations General appearance: alert, in no apparent distress, other (Appears uncomfortable, transfers position slowly) - Head Head exam: Present: atraumatic, normocephalic - Eye Eye exam: Present: scleral icterus. Absent: conjunctival injection - ENT ENT exam: Present: mucous membranes moist - Neck Neck exam: Present: normal inspection, full ROM - Respiratory Respiratory exam: Present: normal lung sounds bilaterally. Absent: respiratory distress, wheezes, rales, rhonchi - Cardiovascular Cardiovascular Exam: Present: regular rate, normal rhythm, normal heart sounds. Absent: systolic murmur, diastolic murmur, rubs, gallop - GI/Abdominal GI/Abdominal exam: Present: soft, normal bowel sounds. Absent: distended, tenderness, guarding, rebound - Rectal Rectal exam: Present: deferred - Extremities Exam Extremities exam: Present: normal inspection - Neurological Exam Neurological exam: Present: alert, oriented X3 - Psychiatric Psychiatric exam: Present: normal affect, normal mood - Skin Skin exam: Present: warm, dry, intact, normal color. Absent: rash ED Course Vital Signs 11/13/19 11/13/19 18:31 21:04 Temperature 98.7 F Pulse Rate 75 Respiratory 18 18 Rate Blood Pressure 107/66 O2 Sat by Pulse 100 98 Oximetry ED Medical Decision Making - Lab Data Result diagrams: 11/13/19 20:55 11/13/19 20:55 - Radiology Data Radiology results: report reviewed Chest radiograph 2 view: Nonspecific bilateral lower lobe opacities - Medical Decision Making Mr. Del Toro presents with sickle cell disease crisis as well as acute chest syndrome. Patient has multifocal pneumonia. Differential diagnosis includes COVID 19 infection, bacterial etiology. Admitted to Dr. Fabian's service Critical care attestation.: If time is entered above; I have spent that time in minutes in the direct care of this critically ill patient, excluding procedure time. ED Disposition Clinical Impression: Sickle cell anemia with pain, Acute chest syndrome, Multifocal pneumonia, Suspected COVID-19 virus infection Disposition: OP ADMIT IP TO THIS HOSP Is pt being admited?: Yes Does the pt Need Aspirin: No Condition: Stable
[2019-11-13] MEDS: D5W/0.2% NACL 1,000 ML IV SCH (20:58)
[2019-11-13 21:23] LABS: Hematocrit 21.9 % (35.5-45.6); Hemoglobin 7.7 gm/dl (11.8-15.2); Mean Corpuscular HGB Conc 35 % (32-34); Mean Corpuscular Volume 99 fl (84-94); Platelet Count 358 K/mm3 (140-440)
[2019-11-13 21:24] LABS: Alanine Aminotransferase 16 units/L (7-56); BUN/Creatinine Ratio 33; Blood Urea Nitrogen 10 mg/dL (9-20); Calcium 8.9 mg/dL (8.4-10.2); Hemolysis Index 4
[2019-11-13 21:29] LABS: Basophils % (Auto) 1.9 % (0.0-1.8); Eosinophils % (Auto) 1.9 % (0.0-4.3); Lymphocytes % (Auto) 26.3 % (13.4-35.0); Monocytes % (Auto) 9.1 % (0.0-7.3); Red Cell Distribution Width 22.4 % (13.2-15.2)
[2019-11-13 21:30] LABS: Basophils # (Auto) 0.3 K/mm3 (0.0-0.1); Eosinophils # (Auto) 0.3 K/mm3 (0.0-0.4); Lymphocytes # (Auto) 3.5 K/mm3 (1.2-5.4); Monocytes # (Auto) 1.2 K/mm3 (0.0-0.8)
[2019-11-13] MEDS ORDERED: VANCOMYCIN 1,500 MG in SODIUM CHLORIDE 0.9% 500 ML 500 ML IV ONE (22:30)
[2019-11-13] MEDS ORDERED: VANCOMYCIN PHARMACY TO DOSE IV SCH (23:00)
[2019-11-13] MEDS ORDERED: HYDROmorphone 1 MG/1 ML INJ ONE (23:22)
[2019-11-13] MEDS: AZTREONAM/NS 1 GM/50 ML 1 GM/50 ML VIAL IV SCH (23:32)
[2019-11-14 00:38] LABS: C-Reactive Protein 12.5 mg/dL (0.00-1.30)
[2019-11-14] MEDS: D5W/0.2% NACL 1,000 ML IV SCH ×3 (02:12→16:43)
[2019-11-14] MEDS: HYDROmorphone 2 MG/1 ML INJ IV PRN ×7 (02:27→22:52)
[2019-11-14] MEDS: diphenhydrAMINE 50 MG/ML VIAL IV PRN ×7 (02:27→22:52)
[2019-11-14] MEDS: oxyCODONE ER 10 MG TAB PO SCH ×2 (05:48→15:45)
[2019-11-14] MEDS ORDERED: AZTREONAM/NS 1 GM/50 ML 1 GM/50 ML VIAL IV SCH (06:00)
[2019-11-14] MEDS: AZTREONAM/NS 1 GM/50 ML 1 GM/50 ML VIAL IV SCH ×4 (08:47→16:43)
[2019-11-14] MEDS: VANCOMYCIN/NS 1 GM/250 ML 1 GM/250 ML BAG IV SCH ×2 (08:48→16:47)
[2019-11-14] MEDS: FOLIC ACID 1 MG TAB PO SCH (09:18)
[2019-11-14] MEDS: HEPARIN 5,000 UNIT/1 ML VIAL SUB-Q SCH ×2 (09:18→23:02)
--- NOTE | 2019-11-14 14:42 | Consultation ---
History of Present Illness - Reason for Consult Consult date: 11/14/19 r/o COVID Requesting physician: [place] - History of Present Illness 33 year old with history of sickle cell disease and previous pneumonia admitted on 11/13/2019 due to 3-day history of multiple body aches mainly upper extremities, back and chest. Patient also reports shortness of breath. He denies any cough. Denies any contact with COVID positive patients. On arrival, temperature 98.7 to 101.1, HR 75, RR 18, O2 sat 100, BP 107/66. Initial WBC 13.4. Hemoglobin 7.4. Platelets 358. D-dimer 1581. Ferritin 829. CRP 12. Procalcitonin 0.09. LDH 571. COVID tested negative. Chest x-ray showed bilateral lung opacities. Blood culture 11/14/2019 no growth. Review of Systems: positive in bold print General: + fever, +chills, +body aches Cutaneous: rash, pruritus Head: headaches or injury Eyes: changes in vision, eye pain, double vision Ears: ear pain, ear discharge, ringing or hearing loss Nose: nose bleeding, stuffiness Mouth & throat: bleeding gums, horseness, no dental problems, or swollen glands Neck: no pain, node enlargement/lumps, tyroid enlargement or tenderness Respiratory: +SOB, no cough, +OCASIO, wheezing, sputum, hemoptysis, pleuritic chest pain Cardiovascular: chest pain, leg edema, cyanosis, OCASIO, orthopnea Musculoskeletal: edema Gastrointestinal: nausea, vomiting, hematemesis, diarrhea, constipation, melena, bright red blood in stools, fecal incontinence, jaundice Genitourinary/Reproductive: frequent urination, dysuria, hematuria, incontinence Neurogical: seizures, headaches, weakness, paresthesias, loss of speech or vision; memory loss, vertigo, tremors, numbness Psychiatric: stable mood; excessive anxiety, sadness or moodiness Medications and Allergies Allergies Allergy/AdvReac Type Severity Reaction Status Date / Time butorphanol tartrate Allergy Unknown Verified 08/28/19 01:23 [From Stadol] ceftriaxone [From Rocephin] Allergy Unknown Verified 08/28/19 01:23 ketorolac tromethamine Allergy Shortness Verified 08/28/19 01:23 [From Toradol] of Breath metoclopramide HCl Allergy Unknown Verified 08/28/19 01:23 [From Reglan] morphine Allergy Shortness Verified 08/28/19 01:23 of Breath risperidone [From Risperdal] Allergy Swelling Verified 08/28/19 01:23 temazepam [From Restoril] Allergy Swelling Verified 08/28/19 01:23 nalbuphine HCl [From Nubain] AdvReac Unknown Verified 08/28/19 01:23 Home Medications Medication Instructions Recorded Confirmed Last Taken Type FLUoxetine [PROzac] 10 mg PO QDAY 08/28/19 11/14/19 Unknown History OLANzapine [ZyPREXA] 2.5 mg PO QDAY 10/05/19 11/14/19 Unknown History Active Meds: Active Medications Diphenhydramine HCl (Benadryl) 12.5 mg IV Q3H PRN PRN Reason: Itching Last Admin: 11/14/19 09:21 Dose: 12.5 mg Documented by: Folic Acid (Folvite) 1 mg PO QDAY [facility] Last Admin: 11/14/19 09:18 Dose: 1 mg Documented by: Heparin Sodium (Porcine) (Heparin) 5,000 unit SUB-Q Q12HR [facility] Last Admin: 11/14/19 09:18 Dose: Not Given Documented by: Hydromorphone HCl (Dilaudid) 3 mg IV Q3H PRN PRN Reason: Pain , Severe (7-10) Stop: 11/15/19 00:05 Last Admin: 11/14/19 12:07 Dose: 3 mg Documented by: Hydromorphone HCl (Dilaudid) 2 mg IV Q3H PRN PRN Reason: Pain , Severe (7-10) Dextrose/Sodium Chloride (D5ns 0.2%) 1,000 mls @ 250 mls/hr IV DIRECT [facility] Last Admin: 11/14/19 08:48 Dose: 250 mls/hr Documented by: Aztreonam (Azactam/Ns 1 Gm/50 Ml) 1 gm in 50 mls @ 50 mls/hr IV Q8H [facility]; Protocol Last Admin: 11/14/19 08:47 Dose: 50 mls/hr Documented by: Vancomycin HCl (Vancomycin/Ns 1 Gm/250 Ml) 1 gm in 250 mls @ 250 mls/hr IV Q8H [facility] Last Admin: 11/14/19 08:48 Dose: 250 mls/hr Documented by: Oxycodone HCl (Oxycontin) 30 mg PO Q6HR [facility] Last Admin: 11/14/19 05:48 Dose: 30 mg Documented by: Physical Examination - Physical Exam Narrative exam: General appearance: Alert in NAD on nasal cannula 3 L Eyes: Pupils equal reactive to light accommodation HENT: Atraumatic; oropharynx limited due to lack of PPE Lungs: Diminished breath sounds CV: RRR Abdomen: Soft nontender Extremities: No edema Skin: Multiple tattoos Psych: All Neuro: alert and oriented x 3. Moving all extermities - Constitutional Vitals: Vital Signs Temp Pulse Resp BP Pulse Ox 98.7 F 95 H 14 100/64 98 11/14/19 13:44 11/14/19 14:00 11/14/19 14:00 11/14/19 14:00 11/14/19 14:00 Temperature -Last 24 Hours Temperature 98.7 F Temperature 99.1 F Temperature 97.4 F Temperature 99.7 F Temperature 101 F Temperature 101.1 F Temperature 98.7 F Results - Labs CBC & Chem 7: 11/13/19 20:55 11/13/19 23:26 Labs: Abnormal lab results 11/13/19 11/13/19 11/13/19 Range/Units 20:55 20:55 23:26 WBC 13.4 H (4.5-11.0) K/mm3 RBC 2.20 L (3.65-5.03) M/mm3 Hgb 7.7 L (11.8-15.2) gm/dl Hct 21.9 L (35.5-45.6) % MCV 99 H (84-94) fl MCH 35 H (28-32) pg MCHC 35 H (32-34) % RDW 22.4 H (13.2-15.2) % Ward % (Auto) 9.1 H (0.0-7.3) % Baso % (Auto) 1.9 H (0.0-1.8) % Ward # 1.2 H (0.0-0.8) K/mm3 Baso # 0.3 H (0.0-0.1) K/mm3 Seg Neutrophils # 8.2 H (1.8-7.7) K/mm3 Percent Retic 17.14 H (0.78-2.58) % D-Dimer 1581.51 H (0-234) ng/mlDDU Sodium 136 L (137-145) mmol/L Potassium 3.2 L (3.6-5.0) mmol/L Chloride 95.0 L (98-107) mmol/L Creatinine 0.3 L (0.8-1.5) mg/dL Glucose 120 H (75-100) mg/dL POC Glucose (70-105) Ferritin (13.0-400.0) ng/mL Total Bilirubin 6.50 H (0.1-1.2) mg/dL Lactate Dehydrogenase (91-180) units/L C-Reactive Protein (0.00-1.30) mg/dL 11/13/19 11/13/19 11/14/19 Range/Units 23:26 23:26 13:02 WBC (4.5-11.0) K/mm3 RBC (3.65-5.03) M/mm3 Hgb (11.8-15.2) gm/dl Hct (35.5-45.6) % MCV (84-94) fl MCH (28-32) pg MCHC (32-34) % RDW (13.2-15.2) % Ward % (Auto) (0.0-7.3) % Baso % (Auto) (0.0-1.8) % Ward # (0.0-0.8) K/mm3 Baso # (0.0-0.1) K/mm3 Seg Neutrophils # (1.8-7.7) K/mm3 Percent Retic (0.78-2.58) % D-Dimer (0-234) ng/mlDDU Sodium (137-145) mmol/L Potassium (3.6-5.0) mmol/L Chloride (98-107) mmol/L Creatinine (0.8-1.5) mg/dL Glucose 205 H (75-100) mg/dL POC Glucose 202 H (70-105) Ferritin 829.9 H (13.0-400.0) ng/mL Total Bilirubin (0.1-1.2) mg/dL Lactate Dehydrogenase 571 H (91-180) units/L C-Reactive Protein 12.50 H (0.00-1.30) mg/dL Assessment and Plan Cultures: Blood culture 11/14/2019 no growth. Assessment: 33 year old with history of sickle cell disease and previous pneumonia admitted on 11/13/2019 due to 3-day history of multiple body aches mainly upper extremities, back and chest pain associated with SOB: #Sepsis: present on admission with fever, leukocytosis, mild hypotension. Likely due to CAP vs Acute Chest Syndrome vs PE. #CAP vs Acute Chest Syndrome vs PE: not sustained hypoxemia but placed on NC O2 3L. Chest x-ray showed bilateral lung opacities. Blood culture 11/14/2019 no growth. D-dimer 1581. Ferritin 829. CRP 12. Ddimer and ferritin can be elevated in SCD crisis. Procalcitonin=0.09 -normal. #SCD anemia with crisis: on pain meds Recommendations: Obtain Chest CTA eval for PE Stop COVID isolation Continue vancomycin and aztreonam Add levaquin Supportive management - analgesia, oxygen, incentive spirometry, bronchodilators and transfusions as needed Hem consult Will follow Patricia Sharp MD Infectious Diseases Sl[employer] Att[employer] [facility] M [phone] O [phone]
--- NOTE | 2019-11-14 22:50 | History and Physical Report ---
History of Present Illness Date of examination: 11/14/19 Date of admission: 11/13/19 22:55 Chief complaint: SCD/Pain crisis/ B/L pneumonia. History of present illness: Patient presented to the Er, with CC of diffuse joint pain, and SOB, w/up in the ED, revealed B/L pna, patient admitted to IMCU to clear for Covid 19, which came back negative. Patient is getting treatment , with IV ABX, hydration, pain control., and lab monitoring..Once clinically stable, he will be d/c home. Past History Past Medical History: anemia Past Surgical History: total hip replacement Social history: single, lives with family Family history: no significant family history Medications and Allergies Allergies Allergy/AdvReac Type Severity Reaction Status Date / Time butorphanol tartrate Allergy Unknown Verified 08/28/19 01:23 [From Stadol] ceftriaxone [From Rocephin] Allergy Unknown Verified 08/28/19 01:23 ketorolac tromethamine Allergy Shortness Verified 08/28/19 01:23 [From Toradol] of Breath metoclopramide HCl Allergy Unknown Verified 08/28/19 01:23 [From Reglan] morphine Allergy Shortness Verified 08/28/19 01:23 of Breath risperidone [From Risperdal] Allergy Swelling Verified 08/28/19 01:23 temazepam [From Restoril] Allergy Swelling Verified 08/28/19 01:23 nalbuphine HCl [From Nubain] AdvReac Unknown Verified 08/28/19 01:23 Home Medications Medication Instructions Recorded Confirmed Last Taken Type FLUoxetine [PROzac] 10 mg PO QDAY 08/28/19 11/14/19 Unknown History OLANzapine [ZyPREXA] 2.5 mg PO QDAY 10/05/19 11/14/19 Unknown History Active Meds: Active Medications Diphenhydramine HCl (Benadryl) 12.5 mg IV Q3H PRN PRN Reason: Itching Last Admin: 11/14/19 19:43 Dose: 12.5 mg Documented by: Folic Acid (Folvite) 1 mg PO QDAY [facility] Last Admin: 11/14/19 09:18 Dose: 1 mg Documented by: Heparin Sodium (Porcine) (Heparin) 5,000 unit SUB-Q Q12HR [facility] Last Admin: 11/14/19 09:18 Dose: Not Given Documented by: Hydromorphone HCl (Dilaudid) 3 mg IV Q3H PRN PRN Reason: Pain , Severe (7-10) Stop: 11/15/19 00:05 Last Admin: 11/14/19 19:42 Dose: 3 mg Documented by: Hydromorphone HCl (Dilaudid) 2 mg IV Q3H PRN PRN Reason: Pain , Severe (7-10) Dextrose/Sodium Chloride (D5ns 0.2%) 1,000 mls @ 250 mls/hr IV DIRECT [facility] Last Admin: 11/14/19 16:43 Dose: 250 mls/hr Documented by: Aztreonam (Azactam/Ns 1 Gm/50 Ml) 1 gm in 50 mls @ 50 mls/hr IV Q8H [facility]; Protocol Last Admin: 11/14/19 16:43 Dose: 50 mls/hr Documented by: Vancomycin HCl (Vancomycin/Ns 1 Gm/250 Ml) 1 gm in 250 mls @ 250 mls/hr IV Q8H [facility] Last Admin: 11/14/19 16:47 Dose: 250 mls/hr Documented by: Oxycodone HCl (Oxycontin) 30 mg PO Q6HR [facility] Last Admin: 11/14/19 15:45 Dose: Not Given Documented by: Review of Systems Constitutional: fatigue, chronic pain Respiratory: shortness of breath Musculoskeletal: low back pain Exam - Constitutional Vitals: Temp Pulse Resp BP Pulse Ox 98.7 F 90 21 110/65 99 11/14/19 20:00 11/14/19 22:00 11/14/19 22:00 11/14/19 22:00 11/14/19 22:00 General appearance: Present: mild distress, well-nourished - EENT Eyes: Present: PERRL ENT: hearing intact, clear oral mucosa - Neck Neck: Present: supple, normal ROM - Respiratory Respiratory: bilateral: diminished - Cardiovascular Heart Sounds: Present: S1 & S2. Absent: rub, click - Extremities Extremities: pulses symmetrical, No edema Peripheral Pulses: within normal limits - Abdominal General gastrointestinal: Present: soft, non-tender, non-distended, normal bowel sounds Male genitourinary: Present: deferred - Rectal Rectal Exam: deferred - Integumentary Integumentary: Present: clear, warm, dry - Musculoskeletal Musculoskeletal: gait normal, strength equal bilaterally - Psychiatric Psychiatric: appropriate mood/affect, intact judgment & insight - Neurologic Neurologic: CNII-XII intact, moves all extremities HEART Score - HEART Score EKG: Normal Age: < 45 Risk factors: No known risk factors Results - Labs CBC & Chem 7: 11/13/19 20:55 11/13/19 23:26 Labs: Abnormal lab results 11/13/19 11/13/19 11/13/19 Range/Units 23:26 23:26 23:26 D-Dimer 1581.51 H (0-234) ng/mlDDU Glucose 205 H (75-100) mg/dL POC Glucose (70-105) Ferritin 829.9 H (13.0-400.0) ng/mL Lactate Dehydrogenase 571 H (91-180) units/L C-Reactive Protein 12.50 H (0.00-1.30) mg/dL 11/14/19 Range/Units 13:02 D-Dimer (0-234) ng/mlDDU Glucose (75-100) mg/dL POC Glucose 202 H (70-105) Ferritin (13.0-400.0) ng/mL Lactate Dehydrogenase (91-180) units/L C-Reactive Protein (0.00-1.30) mg/dL Assessment and Plan - Patient Problems (1) Sickle cell anemia with crisis Current Visit: Yes Status: Chronic Plan to address problem: pain control. (2) Dehydration Current Visit: No Status: Acute Plan to address problem: hydration (3) Anemia Current Visit: Yes Status: Acute Plan to address problem: lab monitoring. (4) Pneumonia Current Visit: Yes Status: Acute Plan to address problem: Continue IV ABX, as current, continue with ID rec.
[2019-11-15] MEDS: HYDROmorphone 2 MG/1 ML INJ IV PRN ×7 (01:52→21:33)
[2019-11-15] MEDS: diphenhydrAMINE 50 MG/ML VIAL IV PRN ×7 (01:52→21:34)
[2019-11-15] MEDS: AZTREONAM/NS 1 GM/50 ML 1 GM/50 ML VIAL IV SCH ×4 (02:38→23:32)
[2019-11-15] MEDS: D5W/0.2% NACL 1,000 ML IV SCH ×3 (02:38→23:33)
[2019-11-15] MEDS: VANCOMYCIN/NS 1 GM/250 ML 1 GM/250 ML BAG IV SCH ×2 (02:39→16:09)
[2019-11-15] MEDS: oxyCODONE ER 10 MG TAB PO SCH ×5 (03:10→23:32)
--- NOTE | 2019-11-15 10:06 | Progress Note ---
Assessment and Plan Cultures: Blood culture 11/14/2019 +GNR Assessment: 33 year old with history of sickle cell disease and previous pneumonia admitted on 11/13/2019 due to 3-day history of multiple body aches mainly upper extremities, back and chest pain associated with SOB: #Sepsis: improved. Likely due to GNR bacteremia +/- CAP vs Acute Chest Syndrome vs PE. #GNR bacteremia: unclear source ?H flu causing pneumonia /UTI. Patient has a port which looks ok. #CAP vs Acute Chest Syndrome vs PE: not sustained hypoxemia but placed on NC O2 3L. Chest x-ray showed bilateral lung opacities. Blood culture 11/14/2019 no growth. D-dimer 1581. Ferritin 829. CRP 12. Ddimer and ferritin can be elevated in SCD crisis. Procalcitonin=0.09 -normal. #SCD anemia with crisis: on pain meds Recommendations: UA/urine cx stat RUQ US eval GB TTE f/u blood culture Obtain Chest CTA eval for PE -pending Stop vancomycin Conintune aztreonam and levaquin Supportive management - analgesia, oxygen, incentive spirometry, bronchodilators and transfusions as needed Hem consult Will follow Patricia Sharp MD Infectious Diseases Appraiser [facility] ([facility]) M [phone] O [phone] Subjective Date of service: 11/15/19 Principal diagnosis: SCD/pneumonia Interval history: Patient feels some better still multiple body aches, no fever for 24h Objective - Exam Narrative Exam: General appearance: Alert in NAD on room air Eyes: Pupils equal reactive to light accommodation HENT: Atraumatic; oropharynx limited due to lack of PPE Lungs: Diminished breath sounds CV: RRR Abdomen: Soft nontender Extremities: No edema Skin: Multiple tattoos Psych: All Neuro: alert and oriented x 3. Moving all extermities - Constitutional Vitals: Vital Signs Temp Pulse Resp BP Pulse Ox 98.7 F 80 18 120/70 100 11/15/19 07:00 11/15/19 07:47 11/15/19 07:00 11/15/19 07:00 11/15/19 07:47 Temperature -Last 24 Hours Temperature 98.7 F Temperature 98.7 F Temperature 99.6 F Temperature 98.7 F Temperature 98.9 F Temperature 98.7 F - Labs CBC & Chem 7: 11/13/19 20:55 11/13/19 23:26 Labs: Abnormal lab results 11/14/19 Range/Units 13:02 POC Glucose 202 H (70-105)
[2019-11-15] MEDS: FOLIC ACID 1 MG TAB PO SCH (10:25)
[2019-11-15] MEDS: HEPARIN 5,000 UNIT/1 ML VIAL SUB-Q SCH ×2 (10:26→21:35)
[2019-11-15 12:39] LABS: Bilirubin,Urine NEG (Negative); Blood,Urine NEG (Negative); Color,Urine Yellow (Yellow); Protein,Urine <15 mg/dL mg/dL (Negative)
[2019-11-15 13:06] LABS: Hematocrit 20.5 % (35.5-45.6); Mean Corpuscular HGB Conc 34 % (32-34); Mean Corpuscular Volume 98 fl (84-94); Platelet Count 361 K/mm3 (140-440); Red Blood Count 2.08 M/mm3 (3.65-5.03)
[2019-11-15 14:10] LABS: Basophils % (Manual) 0 % (0.0-1.8); Total Cells Counted 100
[2019-11-15 14:14] LABS: Anisocytosis 1+
[2019-11-15 14:15] LABS: Platelet Estimate Consistent w Auto; Sickle Cells 1+; Stomatocytes 1+; Target Cells Few
--- NOTE | 2019-11-15 14:55 | Cat Scan Report ---
CTA CHEST WITH IV CONTRAST INDICATION / CLINICAL INFORMATION: eval for PE/pneumonia/infartion. TECHNIQUE: Axial CT images were obtained through the chest after injection of IV contrast. 3 plane MIP and/or 3D reconstructions were produced. All CT scans at this location are performed using CT dose reduction f or ALARA by means of automated exposure control. COMPARISON: None available. FINDINGS: PULMONARY ARTERIES: No pulmonary emboli. THORACIC AORTA: No significant abnormality. HEART: Cardiac enlargement is present.. CORONARY ARTERIES: No significant calcification. PLEURA: No pleural effusion. No pneumothorax. LYMPH NODES: Prominent lymph nodes are present predominantly within the mediastinum largest measuring 1.14 cm in short axis. LUNGS: Patchy airspace changes present posterior aspect left upper lobe medial aspect left lower lobe and medial aspect right lower lobe with a small left pleural effusion ADDITIONAL FINDINGS: T[place]-n-Zcjh catheter is present with tip in superior vena cava. UPPER ABDOMEN: No acute findings. SKELETAL STRUCTURES: Heterogeneous coarse trabeculation of the skeletal structures. IMPRESSION: 1. No CT evidence for pulmonary embolism. 2. Diffuse skeletal changes as noted most consistent with sickle cell anemia 3. Patchy parenchymal changes, pneumonia is a concern Signer Name: Arnulfo Elkins MD Signed: 11/15/2019 2:51 PM Workstation Name: [id number]
--- NOTE | 2019-11-15 21:19 | Progress Note ---
Assessment and Plan - Patient Problems (1) Sickle cell anemia with crisis Current Visit: Yes Status: Chronic Plan to address problem: pain control. (2) Dehydration Current Visit: No Status: Acute Plan to address problem: hydration (3) Anemia Current Visit: Yes Status: Acute Plan to address problem: lab monitoring. (4) Pneumonia Current Visit: Yes Status: Acute Plan to address problem: Continue IV ABX, as current, continue with ID rec. Subjective Date of service: 11/15/19 Principal diagnosis: SCD/pneumonia Interval history: Patient seen/examined, resting in bed, awaiting result of CTA, to r/.o PE.Will continue to monitor as if PNA, until CTA resulted.May put on tx dose LMWh until results.He rated pain at 8/10, at this time.Full cultures results, still pending. Objective - Constitutional Vitals: Vital Signs - 12hr 11/15/19 11/15/19 11/15/19 10:00 12:14 16:19 Temperature 98.0 F 99.4 F Pulse Rate 89 Pulse Rate [ From Monitor] Respiratory 20 18 Rate Blood Pressure 119/73 110/68 O2 Sat by Pulse 99 97 Oximetry 11/15/19 11/15/19 11/15/19 20:00 20:14 20:44 Temperature 99.1 F Pulse Rate 89 89 89 Pulse Rate [ From Monitor] Respiratory 18 Rate Blood Pressure 113/78 O2 Sat by Pulse 100 Oximetry 11/15/19 20:48 Temperature Pulse Rate Pulse Rate [ 95 H From Monitor] Respiratory 16 Rate Blood Pressure O2 Sat by Pulse 100 Oximetry General appearance: Present: mild distress, well-nourished - EENT Eyes: PERRL, EOM intact ENT: hearing intact, clear oral mucosa Ears: bilateral: normal - Neck Neck: supple, normal ROM - Respiratory Respiratory: bilateral: diminished - Breasts Breasts: deferred - Cardiovascular Rhythm: regular Heart Sounds: Present: S1 & S2. Absent: gallop, rub Extremities: pulses intact, No edema, normal color, Full ROM - Gastrointestinal General gastrointestinal: Present: soft, non-tender, non-distended, normal bowel sounds Rectal Exam: deferred - Genitourinary Male genitourinary: deferred - Integumentary Integumentary: clear, warm, dry - Musculoskeletal Musculoskeletal: 1, strength equal bilaterally - Neurologic Neurologic: moves all extremities - Psychiatric Psychiatric: memory intact, appropriate mood/affect, intact judgment & insight - Labs CBC & Chem 7: 11/15/19 12:00 11/13/19 23:26 Labs: Abnormal lab results 11/15/19 11/15/19 Range/Units 12:00 Unknown RBC 2.08 L (3.65-5.03) M/mm3 Hgb 7.0 L (11.8-15.2) gm/dl Hct 20.5 L (35.5-45.6) % MCV 98 H (84-94) fl MCH 34 H (28-32) pg RDW 22.0 H (13.2-15.2) % Vancomycin Trough 4.6 L (5.0-20.0) ug/mL HEART Score - HEART Score EKG: Normal Age: < 45 Risk factors: No known risk factors
[2019-11-16] MEDS: diphenhydrAMINE 50 MG/ML VIAL IV PRN ×8 (00:35→23:07)
[2019-11-16] MEDS: HYDROmorphone 2 MG/1 ML INJ IV PRN ×8 (00:36→23:06)
--- NOTE | 2019-11-16 01:14 | Ultrasound Report ---
ULTRASOUND ABDOMEN, LIMITED (RIGHT UPPER QUADRANT) INDICATION: RUQ US, eval for cholecystitis. COMPARISON: None available. FINDINGS: Pancreas: Visualized portion shows no significant abnormality. Liver: Normal. Gallbladder: There has been prior cholecystectomy Bile ducts: Normal. Common Bile Duct measures 6 mm. Free fluid: None. Additional Findings: None. IMPRESSION: 1. No sonographic abnormality of the right upper quadrant. Signer Name: Valentin Jean MD Signed: 11/16/2019 1:10 AM Workstation Name: [id number]
[2019-11-16] MEDS: oxyCODONE ER 10 MG TAB PO SCH ×3 (06:32→19:56)
[2019-11-16] MEDS: D5W/0.2% NACL 1,000 ML IV SCH ×3 (06:33→20:30)
--- NOTE | 2019-11-16 09:07 | Progress Note ---
Assessment and Plan Cultures: Blood culture 11/14/2019 +GNR Assessment: 33 year old with history of sickle cell disease and previous pneumonia admitted on 11/13/2019 due to 3-day history of multiple body aches mainly upper extremities, back and chest pain associated with SOB: #Sepsis: improved. Likely due to GNR bacteremia +/- CAP vs Acute Chest Syndrome #GNR bacteremia: unclear source ?H flu causing pneumonia. UA negative. Liver US s/p cholecystectomy no ductal dilation. Patient has a port which looks ok. #CAP vs Acute Chest Syndrome: CTA no evidence of PE, +bilateral patchy infiltrate; Chest x-ray showed bilateral lung opacities. Blood culture 11/14/2019 no growth. D-dimer 1581. Ferritin 829. CRP 12. Ddimer and ferritin can be elevated in SCD crisis. Procalcitonin=0.09 -normal. #SCD anemia with crisis: on pain meds Recommendations: monitor fever repeat blood culture TTE f/u blood culture ID and ANGEL Stop aztreonam Day 4 Continue levaquin 750 mg q day Day 3 Supportive management - analgesia, oxygen, incentive spirometry, bronchodilators and transfusions as needed If clinically better, negative endocarditis on TTE and negative repeat blood cx, ok to d/c on levaquin 750 mg po qday total 8 days to cover pneumonia and bacteremia I am covering the weekend Patricia Sharp MD Infectious Diseases Residential [employer] Aud[employer] [facility] M [phone] O [phone] Subjective Date of service: 11/16/19 Principal diagnosis: SCD/pneumonia Interval history: Patient feels some better still multiple body aches, low grade fever 100 Objective - Exam Narrative Exam: General appearance: Alert in NAD on room air Eyes: Pupils equal reactive to light accommodation HENT: Atraumatic; oropharynx limited due to lack of PPE Lungs: Diminished breath sounds CV: RRR Abdomen: Soft nontender Extremities: No edema Skin: Multiple tattoos Psych: All Neuro: alert and oriented x 3. Moving all extermities - Constitutional Vitals: Vital Signs Temp Pulse Resp BP Pulse Ox 98.3 F 92 H 20 101/68 94 11/16/19 07:48 11/16/19 07:44 11/16/19 07:48 11/16/19 07:48 11/16/19 07:44 Temperature -Last 24 Hours Temperature 98.3 F Temperature 98.8 F Temperature 99.8 F Temperature 100.0 F Temperature 99.1 F Temperature 99.4 F Temperature 98.0 F - Labs CBC & Chem 7: 11/15/19 12:00 11/13/19 23:26 Labs: Abnormal lab results 11/15/19 11/15/19 Range/Units 12:00 Unknown RBC 2.08 L (3.65-5.03) M/mm3 Hgb 7.0 L (11.8-15.2) gm/dl Hct 20.5 L (35.5-45.6) % MCV 98 H (84-94) fl MCH 34 H (28-32) pg RDW 22.0 H (13.2-15.2) % Vancomycin Trough 4.6 L (5.0-20.0) ug/mL
[2019-11-16] MEDS: AZTREONAM/NS 1 GM/50 ML 1 GM/50 ML VIAL IV SCH (09:19)
[2019-11-16] MEDS: FOLIC ACID 1 MG TAB PO SCH (09:38)
[2019-11-16] MEDS: HEPARIN 5,000 UNIT/1 ML VIAL SUB-Q SCH ×2 (09:40→23:06)
--- NOTE | 2019-11-16 22:52 | Progress Note ---
Assessment and Plan - Patient Problems (1) Sickle cell anemia with crisis Current Visit: Yes Status: Chronic Plan to address problem: pain control. (2) Dehydration Current Visit: No Status: Acute Plan to address problem: hydration (3) Anemia Current Visit: Yes Status: Acute Plan to address problem: lab monitoring. (4) Pneumonia Current Visit: Yes Status: Acute Plan to address problem: Continue IV ABX, as current, continue with ID rec. Subjective Date of service: 11/16/19 Principal diagnosis: SCD/pneumonia Interval history: Patient seen/examined, resting in bed, awaiting result of CTA, to r/.o PE.Will continue to monitor as if PNA, until CTA resulted.May put on tx dose LMWh until results.He rated pain at 8/10, at this time.Full cultures results, still pending. Patient seen, resting in bed, labs reviewed.Notes from ID reviewed, and agree. Objective - Constitutional Vitals: Vital Signs - 12hr 11/16/19 11/16/19 11/16/19 12:00 12:19 16:00 Temperature 98.2 F 98.2 F Pulse Rate 86 77 82 Respiratory 20 20 Rate Blood Pressure 108/67 Blood Pressure 118/74 [Left] O2 Sat by Pulse 96 95 Oximetry 11/16/19 20:09 Temperature 99.0 F Pulse Rate 92 H Respiratory 18 Rate Blood Pressure 114/75 Blood Pressure [Left] O2 Sat by Pulse 91 Oximetry General appearance: Present: mild distress, well-nourished - EENT Eyes: PERRL, EOM intact ENT: hearing intact, clear oral mucosa Ears: bilateral: normal - Neck Neck: supple, normal ROM - Respiratory Respiratory effort: normal Respiratory: bilateral: CTA - Breasts Breasts: deferred - Cardiovascular Rhythm: regular Heart Sounds: Present: S1 & S2. Absent: gallop, rub Extremities: pulses intact, No edema, normal color, Full ROM - Gastrointestinal General gastrointestinal: Present: soft, non-tender, non-distended, normal bowel sounds Rectal Exam: deferred - Genitourinary Male genitourinary: deferred - Integumentary Integumentary: clear, warm, dry - Musculoskeletal Musculoskeletal: 1, strength equal bilaterally - Neurologic Neurologic: moves all extremities - Psychiatric Psychiatric: memory intact, appropriate mood/affect, intact judgment & insight - Labs CBC & Chem 7: 11/15/19 12:00 11/13/19 23:26 HEART Score - HEART Score EKG: Normal Age: < 45 Risk factors: No known risk factors
[2019-11-17] MEDS: oxyCODONE ER 10 MG TAB PO SCH ×5 (01:18→18:15)
[2019-11-17] MEDS: D5W/0.2% NACL 1,000 ML IV SCH ×3 (01:22→17:28)
[2019-11-17] MEDS: HYDROmorphone 2 MG/1 ML INJ IV PRN ×7 (02:29→21:18)
[2019-11-17] MEDS: diphenhydrAMINE 50 MG/ML VIAL IV PRN ×7 (02:29→21:17)
[2019-11-17] MEDS: HEPARIN 5,000 UNIT/1 ML VIAL SUB-Q SCH ×2 (10:27→23:23)
[2019-11-17] MEDS: FOLIC ACID 1 MG TAB PO SCH (10:27)
--- NOTE | 2019-11-17 23:05 | Progress Note ---
Assessment and Plan - Patient Problems (1) Sickle cell anemia with crisis Current Visit: Yes Status: Chronic Plan to address problem: pain control. (2) Dehydration Current Visit: No Status: Acute Plan to address problem: hydration (3) Anemia Current Visit: Yes Status: Acute Plan to address problem: lab monitoring. (4) Pneumonia Current Visit: Yes Status: Acute Plan to address problem: Continue IV ABX, as current, continue with ID rec. Subjective Date of service: 11/17/19 Principal diagnosis: SCD/pneumonia Interval history: Patient seen/examined, resting in bed, awaiting result of CTA, to r/.o PE.Will continue to monitor as if PNA, until CTA resulted.May put on tx dose LMWh until results.He rated pain at 8/10, at this time.Full cultures results, still pending. Patient seen, resting in bed, labs reviewed.Notes from ID reviewed, and agree. patient seen/examined, resting in bed, records reviewed, new blood cultures ordered now, and if negative, and echo nl, will d/c home accordingly. Objective - Constitutional Vitals: Vital Signs - 12hr 11/17/19 11/17/19 11/17/19 12:13 15:02 16:01 Temperature 98.9 F 98.4 F Pulse Rate 86 89 81 Respiratory 20 20 Rate Blood Pressure 110/79 107/71 O2 Sat by Pulse 93 94 Oximetry 11/17/19 11/17/19 11/17/19 17:13 20:03 21:35 Temperature 99.0 F Pulse Rate 81 92 H Respiratory 24 Rate Blood Pressure 118/74 O2 Sat by Pulse 94 98 Oximetry General appearance: Present: mild distress, well-nourished - EENT Eyes: PERRL, EOM intact ENT: hearing intact, clear oral mucosa Ears: bilateral: normal - Neck Neck: supple, normal ROM - Respiratory Respiratory effort: normal Respiratory: bilateral: CTA - Breasts Breasts: deferred - Cardiovascular Rhythm: regular Heart Sounds: Present: S1 & S2. Absent: gallop, rub Extremities: pulses intact, No edema, normal color, Full ROM - Gastrointestinal General gastrointestinal: Present: soft, non-tender, non-distended, normal bowel sounds Rectal Exam: deferred - Genitourinary Male genitourinary: deferred - Integumentary Integumentary: clear, warm, dry - Musculoskeletal Musculoskeletal: 1, strength equal bilaterally - Neurologic Neurologic: moves all extremities - Psychiatric Psychiatric: memory intact, appropriate mood/affect, intact judgment & insight - Labs CBC & Chem 7: 11/15/19 12:00 11/13/19 23:26 HEART Score - HEART Score EKG: Normal Age: < 45 Risk factors: No known risk factors
[2019-11-18] MEDS: oxyCODONE ER 10 MG TAB PO SCH ×4 (00:09→17:48)
[2019-11-18] MEDS: diphenhydrAMINE 50 MG/ML VIAL IV PRN ×8 (00:38→23:09)
[2019-11-18] MEDS: HYDROmorphone 2 MG/1 ML INJ IV PRN ×8 (00:38→23:10)
[2019-11-18] MEDS: D5W/0.2% NACL 1,000 ML IV SCH ×3 (00:42→10:37)
[2019-11-18 03:53] LABS: Hematocrit 23.7 % (35.5-45.6); Hemoglobin 8.1 gm/dl (11.8-15.2)
[2019-11-18] MEDS: HEPARIN 5,000 UNIT/1 ML VIAL SUB-Q SCH ×2 (10:14→21:18)
[2019-11-18] MEDS: FOLIC ACID 1 MG TAB PO SCH (10:14)
--- NOTE | 2019-11-18 12:07 | Progress Note ---
Assessment and Plan Cultures: Blood culture 11/14/2019 Stenotrophomonas 3 of 4 Blood culture 11/17/2019 pending Assessment: 33 year old with history of sickle cell disease and previous pneumonia admitted on 11/13/2019 due to 3-day history of multiple body aches mainly upper extremities, back and chest pain associated with SOB: #Sepsis: improved. Likely due to GNR bacteremia +/- CAP vs Acute Chest Syndrome #Stenotrophomonas bacteremia: unclear source ?port. TTE no vegetations. Patient has a port which looks ok. Previous port removed due to Staph infection. UA negative. Liver US s/p cholecystectomy no ductal dilation. #CAP vs Acute Chest Syndrome: CTA no evidence of PE, +bilateral patchy infiltrate; Chest x-ray showed bilateral lung opacities. Blood culture 11/14/2019 no growth. D-dimer 1581. Ferritin 829. CRP 12. Ddimer and ferritin can be elevated in SCD crisis. Procalcitonin=0.09 -normal. #SCD anemia with crisis: on pain meds Recommendations: f/u repeat blood culture Continue levaquin 750 mg q day Day 5 ok to change to po Pharm consult for ceftazidime-lock therapy for port Supportive management - analgesia, oxygen, incentive spirometry, bronchodilators and transfusions as needed If clinically better and negative repeat blood cx, ok to d/c on levaquin 750 mg po qday total 14 days till 12/01/2019 and outpatient ceftazidime-lock therapy for port to save port ID clinic f/u in 3 weeks, will repeat blood cx if positive will remove Port I am covering the weekend Patricia Sharp MD Infectious Diseases Consultant [employer] [facility] M [phone] O [phone] Subjective Date of service: 11/18/19 Principal diagnosis: SCD/pneumonia Interval history: Patient feels some better no fever Objective - Exam Narrative Exam: General appearance: Alert in NAD on room air Eyes: Pupils equal reactive to light accommodation HENT: Atraumatic; oropharynx limited due to lack of PPE Lungs: Diminished breath sounds CV: RRR Abdomen: Soft nontender Extremities: No edema Skin: Multiple tattoos Psych: All Neuro: alert and oriented x 3. Moving all extermities - Constitutional Vitals: Vital Signs Temp Pulse Resp BP Pulse Ox 99.5 F 92 H 20 120/76 94 11/18/19 07:39 11/18/19 07:39 11/18/19 07:39 11/18/19 07:39 11/18/19 08:40 Temperature -Last 24 Hours Temperature 99.5 F Temperature 98.8 F Temperature 99.3 F Temperature 99.0 F Temperature 98.4 F Temperature 98.9 F - Labs CBC & Chem 7: 11/18/19 03:21 11/13/19 23:26 Labs: Abnormal lab results 11/18/19 Range/Units 03:21 Hgb 8.1 L (11.8-15.2) gm/dl Hct 23.7 L (35.5-45.6) %
[2019-11-18] MEDS ORDERED: CEFTAZIDIME IV SCH (16:00)
[2019-11-18] MEDS ORDERED: HEPARIN NICU IV SCH (16:00)
[2019-11-18] MEDS ORDERED: [UNRECOGNIZED DRUG - OTHER] IV SCH (16:00)
[2019-11-18] MEDS: HEPARIN NICU IV SCH (16:50)
[2019-11-18] MEDS: [UNRECOGNIZED DRUG - OTHER] IV SCH (16:50)
[2019-11-18] MEDS ORDERED: [UNRECOGNIZED DRUG - OTHER] IV SCH (18:00)
--- NOTE | 2019-11-19 | Event Note ---
Date: 11/18/19 patient seen/examined, notes to follow later.
--- NOTE | 2019-11-19 00:16 | Progress Note ---
Assessment and Plan - Patient Problems (1) Sickle cell anemia with crisis Current Visit: Yes Status: Chronic Plan to address problem: pain control. (2) Dehydration Current Visit: No Status: Acute Plan to address problem: hydration (3) Anemia Current Visit: Yes Status: Acute Plan to address problem: lab monitoring. (4) Pneumonia Current Visit: Yes Status: Acute Plan to address problem: Continue IV ABX, as current, continue with ID rec. Subjective Date of service: 11/18/19 Principal diagnosis: SCD/pneumonia Interval history: Patient seen/examined, resting in bed, awaiting result of CTA, to r/.o PE.Will continue to monitor as if PNA, until CTA resulted.May put on tx dose LMWh until results.He rated pain at 8/10, at this time.Full cultures results, still pending. Patient seen, resting in bed, labs reviewed.Notes from ID reviewed, and agree. patient seen/examined, resting in bed, records reviewed, new blood cultures ordered now, and if negative, and echo nl, will d/c home accordingly. Patient seen/examined, notes/labs reviewed. I had spoken to ID earlier today, regarding possible d/c plans. I have read her notes, and will d/c with meds today afternoon.I hope that patient will be compliant with all the treatment discharge plans. Objective - Constitutional Vitals: Vital Signs - 12hr 11/18/19 11/18/19 11/18/19 12:26 16:52 19:29 Temperature 98.9 F 99.4 F 98.5 F Pulse Rate 85 114 H 89 Respiratory 20 20 16 Rate Blood Pressure 112/74 130/80 114/74 O2 Sat by Pulse 95 96 96 Oximetry 11/18/19 11/18/19 20:00 22:00 Temperature Pulse Rate 96 H Respiratory Rate Blood Pressure O2 Sat by Pulse 96 Oximetry General appearance: Present: mild distress, well-nourished - EENT Eyes: PERRL, EOM intact ENT: hearing intact, clear oral mucosa Ears: bilateral: normal - Neck Neck: supple, normal ROM - Respiratory Respiratory effort: normal Respiratory: bilateral: CTA - Breasts Breasts: deferred - Cardiovascular Rhythm: regular Heart Sounds: Present: S1 & S2. Absent: gallop, rub Extremities: pulses intact, No edema, normal color, Full ROM - Gastrointestinal General gastrointestinal: Present: soft, non-tender, non-distended, normal bowel sounds Rectal Exam: deferred - Genitourinary Male genitourinary: deferred - Integumentary Integumentary: clear, warm, dry - Musculoskeletal Musculoskeletal: 1, strength equal bilaterally - Neurologic Neurologic: moves all extremities - Psychiatric Psychiatric: memory intact, appropriate mood/affect, intact judgment & insight - Labs CBC & Chem 7: 11/18/19 03:21 11/13/19 23:26 Labs: Abnormal lab results 11/18/19 Range/Units 03:21 Hgb 8.1 L (11.8-15.2) gm/dl Hct 23.7 L (35.5-45.6) % HEART Score - HEART Score EKG: Normal Age: < 45 Risk factors: No known risk factors
[2019-11-19] MEDS: oxyCODONE ER 10 MG TAB PO SCH ×4 (00:43→18:18)
[2019-11-19] MEDS: diphenhydrAMINE 50 MG/ML VIAL IV PRN ×6 (02:19→21:32)
[2019-11-19] MEDS: HYDROmorphone 2 MG/1 ML INJ IV PRN ×7 (02:20→21:31)
[2019-11-19] MEDS: FOLIC ACID 1 MG TAB PO SCH (08:59)
[2019-11-19] MEDS: levoFLOXacin 750 MG TAB PO SCH (08:59)
[2019-11-19] MEDS: HEPARIN 5,000 UNIT/1 ML VIAL SUB-Q SCH ×2 (11:43→21:32)
--- NOTE | 2019-11-19 19:23 | Discharge Summary ---
Providers - Providers Date of Admission: 11/13/19 22:55 Date of discharge: 11/20/19 Attending physician: KEAGAN BOJORQUEZ 11/13/19 22:53 Consult to Physician [CONS] Stat Comment: Consulting Provider: PILI JIANG Physician Instructions: Reason For Exam: Suspected Covid 11/18/19 14:48 Consult to Case Management [CONS] Stat Services Needed at Discharge: Other Notified:: conservation agent Additional [facility] Instructions: [facility] ([facility]) [address] [place] [address] OUTPATIENT PARENTERAL ANTIBIOTIC THERAPY (OPAT) ORDERS Diagnoses: Stenotrophomonas bacteremia and Port-A-cath infection Administer: ychtbkbjesz-Kxsk-K-cath antibiotic lock therapy= 2 mg in 100 units of heparin, dwell time 48 hour for 14 days until 12/01/2019. OK to d/c home levaquin 750 mg po qday and ujmnakcofha-Hbrr-R-cath antibiotic lock therapy= 2 mg in 100 units of heparin, dwell time 48 hour for 14 days until 12/01/2019. Line: Maintain IV access with weekly dressing changes and locks per protocol. Labs: Every Tuesday CBC, AST, ALT, Creatinine . Please fax results to [phone] and call [phone] for critical lab results. Patricia Colón MD Infectious Diseases Dye Stand Loader [facility] ([facility]) O: [phone] F: [phone] Primary care physician: MACHINE OPERATOR SLITTER TECHNICIAN Hospitalization Reason for admission: SCD/B/L PNA. Condition: Stable Procedures: 2D Echo, CTA. Hospital course: Patient presented, to the ER , with CC of sob/ cp, examined, and dx with B/L PNA, and r/o for covid 19, and was negative. He was admitted, and treated with IV ABX, pain control, hydration. He was seen in consultation, by ID, and all their rec followed. Echo of the heart was negative, as well as CTA. Patient is rating his pain at 7/10 at this time. I will do pain control, overnight, and D/C home in am.with oral ABX, and port lock in ABC. Disposition: TO HOME OR SELFCARE - Discharge Diagnoses (1) Sickle cell anemia with crisis Status: Chronic (2) Dehydration Status: Resolved (3) Anemia Status: Chronic (4) Pneumonia Status: Acute Core Measure Documentation - Palliative Care Palliative Care/ Comfort Measures: Not Applicable - Core Measures Any of the following diagnoses?: none Exam - Constitutional Vitals: Temp Pulse Resp BP Pulse Ox 98.5 F 69 18 105/63 98 11/19/19 15:47 11/19/19 15:47 11/19/19 15:47 11/19/19 15:47 11/19/19 15:47 General appearance: Present: mild distress, well-nourished - EENT Eyes: Present: PERRL ENT: hearing intact, clear oral mucosa - Neck Neck: Present: supple, normal ROM - Respiratory Respiratory effort: normal Respiratory: bilateral: CTA - Cardiovascular Heart Sounds: Present: S1 & S2. Absent: rub, click - Extremities Extremities: pulses symmetrical, No edema Peripheral Pulses: within normal limits - Abdominal General gastrointestinal: Present: soft, non-tender, non-distended, normal bowel sounds Male genitourinary: Present: deferred - Rectal Rectal Exam: deferred - Integumentary Integumentary: Present: clear, warm, dry - Musculoskeletal Musculoskeletal: gait normal, strength equal bilaterally - Psychiatric Psychiatric: appropriate mood/affect, intact judgment & insight - Neurologic Neurologic: CNII-XII intact, moves all extremities Plan Activity: no restrictions Diet: regular Follow up with: YONNY TOWNSEND MD [Primary Care Provider] - 7 Days KEAGAN BOJORQUEZ DO [Staff Physician] - 7 Days PATRICIA YANG MD [Staff Physician] - 7 Days
[2019-11-20] MEDS: oxyCODONE ER 10 MG TAB PO SCH ×3 (00:30→13:42)
[2019-11-20] MEDS: HYDROmorphone 2 MG/1 ML INJ IV PRN ×5 (00:37→13:51)
[2019-11-20] MEDS: diphenhydrAMINE 50 MG/ML VIAL IV PRN ×5 (00:38→13:51)
[2019-11-20 08:30] VITALS: BP 128/86
[2019-11-20] MEDS: FOLIC ACID 1 MG TAB PO SCH (09:37)
[2019-11-20] MEDS: levoFLOXacin 750 MG TAB PO SCH (09:37)
[2019-11-20] MEDS: HEPARIN 5,000 UNIT/1 ML VIAL SUB-Q SCH (09:38)
[2019-11-20] MEDS: [UNRECOGNIZED DRUG - OTHER] IV SCH (14:21)
[2019-11-20] MEDS: HEPARIN NICU IV SCH (14:21)
--- NOTE | 2019-11-20 14:23 | Progress Note ---
Assessment and Plan Cultures: Blood culture 11/14/2019 Stenotrophomonas 3 of 4 Blood culture 11/17/2019 no growth Assessment: 33 year old with history of sickle cell disease and previous pneumonia admitted on 11/13/2019 due to 3-day history of multiple body aches mainly upper extremities, back and chest pain associated with SOB: #Sepsis: improved. Likely due to GNR bacteremia +/- CAP vs Acute Chest Syndrome #Stenotrophomonas bacteremia: unclear source ?port. TTE no vegetations. Patient has a port which looks ok. Previous port removed due to Staph infection. UA negative. Liver US s/p cholecystectomy no ductal dilation. #CAP vs Acute Chest Syndrome: CTA no evidence of PE, +bilateral patchy infiltrate; Chest x-ray showed bilateral lung opacities. Blood culture 11/14/2019 no growth. D-dimer 1581. Ferritin 829. CRP 12. Ddimer and ferritin can be elevated in SCD crisis. Procalcitonin=0.09 -normal. #SCD anemia with crisis: on pain meds Recommendations: f/u repeat blood culture Continue levaquin 750 mg q day Pharm consult for ceftazidime-lock therapy for port Supportive management - analgesia, oxygen, incentive spirometry, bronchodilators and transfusions as needed Ok to d/c on levaquin 750 mg po qday and outpatient ltupvgfpztd-Dhhm-L-cath antibiotic lock therapy= 2 mg in 100 units of heparin, dwell time 48 hour for 14 days until 12/01/2019. ID clinic f/u in 3 weeks, will repeat blood cx if positive will remove Port i am signing off Patricia Sharp MD Infectious Diseases [facility]) M [phone] O [phone] Subjective Date of service: 11/20/19 Principal diagnosis: SCD/pneumonia Interval history: Patient feels good, no complaints Objective - Exam Narrative Exam: General appearance: Alert in NAD on room air Eyes: Pupils equal reactive to light accommodation HENT: Atraumatic; oropharynx limited due to lack of PPE Lungs: Diminished breath sounds CV: RRR Abdomen: Soft nontender Extremities: No edema Skin: Multiple tattoos Psych: All Neuro: alert and oriented x 3. Moving all extermities - Constitutional Vitals: Vital Signs Temp Pulse Resp BP Pulse Ox 98.1 F 85 18 128/86 98 11/20/19 07:43 11/20/19 03:18 11/20/19 07:43 11/20/19 07:43 11/20/19 03:18 Temperature -Last 24 Hours Temperature 98.1 F Temperature 98.4 F Temperature 98.3 F Temperature 98.4 F Temperature 98.5 F - Labs CBC & Chem 7: 11/18/19 03:21 11/13/19 23:26
== END 2019-11-20 15:00 | disposition home health service (06) | DRG 871 ==
LOC: ED 18:03 → IMCU 22:55 → 4A 11-14 23:16
PROVIDERS: ADMIT Internal Medicine Hematology & Oncology; ATTEND Internal Medicine Hematology & Oncology
DX: A41.50 Gram-negative sepsis, unspecified (principal); J18.9 Pneumonia, unspecified organism; D57.00 Hb-SS disease with crisis, unspecified; I24.9 Acute ischemic heart disease, unspecified; E86.0 Dehydration; Z90.49 Acquired absence of other specified parts of digestive tract; Z96.642 Presence of left artificial hip joint; Z03.818 Encounter for observation for suspected exposure to other biological agents ruled out; Z88.6 Allergy status to analgesic agent; Z88.1 Allergy status to other antibiotic agents; Z88.8 Allergy status to other drugs, medicaments and biological substances
CPT/HCPCS: 36415; 71046; 71275; 76705; 80053; 80202; 81001; 82728; 82947; 82962; 83615; 84145; 85007; 85014; 85018; 85025; 85045; 85379; 86140; 87040; 87076; 87086; 87186; 93306; 94760; G0378; J0713; J1170; J1200; J1642; J1644; J1956; J2405; J3370; J7040; Q9967; U0003-CS

== ENCOUNTER 2020-05-15 19:02 | Inpatient (IN) | payer MEDICAID ==
--- NOTE | 2020-05-15 19:06 | Emergency Department Report ---
Blank Doc - Documentation Documentation: This is a 34-year-old male that presents with sickle cell crisis. This initial assessment/diagnostic orders/clinical plan/treatment(s) is/are subject to change based on patient's health status, clinical progression and re- assessment by fellow clinical providers in the ED. Further treatment and workup at subsequent clinical providers discretion. Patient/guardians urged not to elope from the ED as their condition may be serious if not clinically assessed and managed. Initial orders include: 1- Patient sent to MAIN ED for further evaluation and treatment 2- labs
[2020-05-15 20:15] LABS: Bacteria,Urine 1+ /HPF (Negative); Bilirubin,Urine NEG (Negative); Blood,Urine NEG (Negative); Color,Urine Amber (Yellow); Hyaline Casts,Urine 1 /LPF; Mucus,Urine 3+ /HPF
[2020-05-15] MEDS ORDERED: ONDANSETRON 4 MG/2 ML INJ IV ONE (22:04)
[2020-05-15] MEDS ORDERED: diphenhydrAMINE 50 MG/ML VIAL IV ONE (22:05)
--- NOTE | 2020-05-15 22:09 | Emergency Department Report ---
HPI - General Chief Complaint: Sickle Cell Crisis Time Seen by Provider: 05/15/20 19:05 - HPI HPI: Room 6 The patient is a 34-year-old male present with a chief complaint of sickle cell pain crisis. Patient states symptoms began approximately 2 days ago with pain in all extremities and lower back. Patient states it feels like a sickle cell pain crisis. Patient states he has been taking his pain medication at home as prescribed but has not helped prompting him to come to the emergency department. Patient denies history of fever, hematuria or dysuria. Patient currently gives his pain a score of 9/10 ED Past Medical Hx - Past Medical History Previous Medical History?: Yes Hx Sickle Cell Disease: Yes Additional medical history: Enlarged heart, vascular necrosis - Surgical History Past Surgical History?: Yes Hx Cholecystectomy: Yes Additional Surgical History: 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), port lt arm and removal, NEW PORT RT CHEST - Family History Family history: no significant - Social History Smoking Status: Never Smoker Substance Use Type: None (Denies illicit drug) - Medications Home Medications: Home Medications Medication Instructions Recorded Confirmed Last Taken Type Oxycodone HCl [roxiCODONE] 60 mg PO Q4HR PRN 12/26/19 01/23/20 Unknown History fentaNYL [Fentanyl] 1 each TD Q3D 12/26/19 01/23/20 Unknown History ED Review of Systems ROS: Stated complaint: SICKLE CELL PAIN Other details as noted in HPI Constitutional: denies: fever Eyes: denies: eye pain ENT: denies: throat pain Respiratory: no symptoms reported Cardiovascular: denies: chest pain Endocrine: no symptoms reported Gastrointestinal: denies: abdominal pain Genitourinary: denies: dysuria, hematuria Musculoskeletal: back pain, arthralgia, myalgia Neurological: denies: headache Hematological/Lymphatic: other (Sickle cell pain crisis) Physical Exam - Physical Exam Vital Signs: Vital Signs 05/15/20 19:07 Temperature 99.7 F H Pulse Rate 122 H Respiratory 20 Rate Blood Pressure 133/69 O2 Sat by Pulse 94 Oximetry Physical Exam: GENERAL: The patient is well-developed well-nourished male lying on stretcher not appearing to be in acute distress. [] HEENT: Normocephalic. Atraumatic. Extraocular motions are intact. Patient has moist mucous membranes. NECK: Supple. Trachea midline CHEST/LUNGS: Clear to auscultation. There is no respiratory distress noted. HEART/CARDIOVASCULAR: Regular. There is no tachycardia. There is no gallop rub or murmur. ABDOMEN: Abdomen is soft, nontender. Patient has normal bowel sounds. There is no abdominal distention. SKIN: There is no rash. There is no edema. There is no diaphoresis. NEURO: The patient is awake, alert, and oriented. The patient is cooperative. The patient has normal speech MUSCULOSKELETAL: There is no CVA tenderness. There is no evidence of acute injury. ED Course Vital Signs 05/15/20 19:07 Temperature 99.7 F H Pulse Rate 122 H Respiratory 20 Rate Blood Pressure 133/69 O2 Sat by Pulse 94 Oximetry - Reevaluation(s) Reevaluation #1: 05/15/20 23:29 Patient's H&H my recommendation for blood transfusion discussed. Patient states he is Religion and will not accept blood products. Transfusion orders canceled ED Medical Decision Making - Lab Data Result diagrams: 05/15/20 22:48 05/15/20 22:48 Laboratory Tests 05/15/20 05/15/20 05/15/20 19:24 22:48 22:48 WBC 11.7 H RBC 1.87 L Hgb 5.9 L* Hct 17.2 L* MCV 92 MCH 32 MCHC 34 RDW 20.9 H Plt Count 454 H Lymph % (Auto) 35.6 H [place] % (Auto) 8.9 H Eos % (Auto) 0.5 Baso % (Auto) 0.9 Lymph # (Auto) 4.2 [place] # (Auto) 1.1 H Eos # (Auto) 0.1 Baso # (Auto) 0.1 Seg Neutrophils % 54.1 Seg Neutrophils # 6.3 Percent Retic 1.98 Sodium 135 L Potassium 4.0 Chloride 99.8 Carbon Dioxide 21 L Anion Gap 18 BUN 5 L Creatinine 0.5 L Estimated GFR > 60 BUN/Creatinine Ratio 10 Glucose 235 H Calcium 8.3 L Total Bilirubin 2.50 H AST 41 H ALT 19 Alkaline Phosphatase 184 H Total Protein 6.5 Albumin 4.0 Albumin/Globulin Ratio 1.6 Urine Color [place] Urine Turbidity Clear Urine pH 5.0 Ur Specific [place] 1.011 Urine Protein 30 mg/dl Urine Glucose (UA) Neg Urine Ketones Neg Urine Blood Neg Urine Nitrite Neg Urine Bilirubin Neg Urine Urobilinogen 4.0 Ur Leukocyte Esterase Neg Urine WBC (Auto) 9.0 H Urine RBC (Auto) 2.0 U Epithel Cells (Auto) < 1.0 Urine Bacteria (Auto) 1+ Hyaline Casts 1 Urine Mucus 3+ - Differential Diagnosis Sickle cell pain crisis Critical care attestation.: If time is entered above; I have spent that time in minutes in the direct care of this critically ill patient, excluding procedure time. ED Disposition Clinical Impression: Sickle cell pain crisis, Sickle cell anemia, Aplastic crisis, UTI (urinary tract infection) Disposition: OP ADMIT IP TO THIS HOSP Is pt being admited?: Yes Does the pt Need Aspirin: No Condition: Fair Time of Disposition: 00:16 (Hospitalist notified (Dr Delatorre))
[2020-05-15] MEDS: HYDROmorphone 1 MG/1 ML INJ IV ONE (22:25)
[2020-05-15] MEDS ORDERED: D5W/0.2% NACL 1,000 ML IV SCH (23:00)
[2020-05-15] MEDS ORDERED: HYDROmorphone 1 MG/1 ML INJ IV ONE (23:16)
[2020-05-15 23:21] LABS: Basophils # (Auto) 0.1 K/mm3 (0.0-0.1); Basophils % (Auto) 0.9 % (0.0-1.8); Eosinophils # (Auto) 0.1 K/mm3 (0.0-0.4); Eosinophils % (Auto) 0.5 % (0.0-4.3); Lymphocytes # (Auto) 4.2 K/mm3 (1.2-5.4); Lymphocytes % (Auto) 35.6 % (13.4-35.0); Mean Corpuscular HGB Conc 34 % (32-34); Mean Corpuscular Volume 92 fl (84-94); Monocytes # (Auto) 1.1 K/mm3 (0.0-0.8); Monocytes % (Auto) 8.9 % (0.0-7.3); Platelet Count 454 K/mm3 (140-440); Red Blood Count 1.87 M/mm3 (3.65-5.03); Red Cell Distribution Width 20.9 % (13.2-15.2)
[2020-05-15 23:23] LABS: Hematocrit 17.2 % (35.5-45.6); Hemoglobin 5.9 gm/dl (11.8-15.2)
[2020-05-15] MEDS ORDERED: SODIUM CHLORIDE 0.9% 500 ML 500 ML IV ONE (23:24)
[2020-05-15 23:36] LABS: Alanine Aminotransferase 19 units/L (7-56); Blood Urea Nitrogen 5 mg/dL (9-20); Calcium 8.3 mg/dL (8.4-10.2); Hemolysis Index 8
[2020-05-15 23:39] LABS: BUN/Creatinine Ratio 10
[2020-05-16] MEDS ORDERED: levoFLOXacin 500 MG TAB PO ONE (00:15)
[2020-05-16] MEDS ORDERED: diphenhydrAMINE 50 MG/ML VIAL ONE ×4 (02:00→18:05)
[2020-05-16] MEDS ORDERED: HYDROmorphone 1 MG/1 ML INJ ONE ×10 (02:01→22:18)
[2020-05-16] MEDS ORDERED: diphenhydrAMINE 50 MG/ML VIAL IV ONE (02:06)
[2020-05-16] MEDS ORDERED: levoFLOXacin 500 MG TAB ONE (02:10)
[2020-05-16] MEDS ORDERED: MAGNESIUM HYDROXIDE (MOM) ORAL LIQD UDC PO PRN (02:13)
[2020-05-16] MEDS ORDERED: ONDANSETRON 4 MG/2 ML INJ IV PRN ×2 (02:13)
[2020-05-16] MEDS ORDERED: ACETAMINOPHEN 325 MG TAB PO PRN (02:13)
[2020-05-16] MEDS: HYDROmorphone 1 MG/1 ML INJ IV ONE ×3 (02:22→05:38)
--- NOTE | 2020-05-16 02:30 | History and Physical Report ---
History of Present Illness Date of examination: 05/16/20 Date of admission: 05/16/20 00:12 Chief complaint: Lower Extremity Pain Back pain History of present illness: 34-year-old male with known history of sickle cell disease and who is also Yazidi presenting to the emergency room today complaining of extremity and lower back pain which has been ongoing for 2 days. Patient states he feels recent sickle cell crisis. He denies any fever or chills, no chest pain or shortness of breath, no abdominal pain, no nausea vomiting and no diarrhea, no hematuria or dysuria. Patient indicates he has been compliant with his medications but his medications has not been helping with his pain today. He therefore decided to report to the emergency room for further evaluation. He follows up with his division sergeant Dr. Fabian Work-up in the emergency room today reveals a hemoglobin of 5.9 and hematocrit of 17.2.Retic count is 1.98 Patient had few WBCs and few bacteria in the urine. He has been commenced on IV fluid, IV analgesic medication and empiric IV antibiotics for possible UTI. Patient is a Yazidi and therefore declines blood transfusion. He is being admitted for sickle cell pain crisis. Past History Past Medical History: other (Sickle cell disease, Avascular necrosis on hip) Past Surgical History: Other (Left hip replacement,Port placement left chest wall, port replacement on left chest, Port placement right chest.) Social history: no significant social history Medications and Allergies Allergies Allergy/AdvReac Type Severity Reaction Status Date / Time butorphanol tartrate Allergy Unknown Verified 08/28/19 01:23 [From Stadol] ceftriaxone [From Rocephin] Allergy Unknown Verified 08/28/19 01:23 ketorolac tromethamine Allergy Shortness Verified 08/28/19 01:23 [From Toradol] of Breath metoclopramide HCl Allergy Unknown Verified 08/28/19 01:23 [From Reglan] morphine Allergy Shortness Verified 08/28/19 01:23 of Breath risperidone [From Risperdal] Allergy Swelling Verified 08/28/19 01:23 temazepam [From Restoril] Allergy Swelling Verified 08/28/19 01:23 nalbuphine HCl [From Nubain] AdvReac Unknown Verified 08/28/19 01:23 Home Medications Medication Instructions Recorded Confirmed Last Taken Type Oxycodone HCl [roxiCODONE] 60 mg PO Q4HR PRN 12/26/19 05/17/20 Unknown History fentaNYL [Fentanyl] 1 each TD Q3D 12/26/19 05/17/20 Unknown History Active Meds: Active Medications Dextrose/Sodium Chloride (D5ns 0.2%) 1,000 mls @ 250 mls/hr IV DIRECT AGNIESZKA Last Admin: 05/15/20 22:25 Dose: 250 mls/hr Documented by: Review of Systems Constitutional: no fever, no chills Ears, nose, mouth and throat: no nasal congestion, no sore throat Cardiovascular: no chest pain, no palpitations Respiratory: no cough, no shortness of breath Gastrointestinal: no abdominal pain, no nausea, no vomiting, no diarrhea Genitourinary Male: no dysuria, no hematuria, no flank pain, no nocturia Musculoskeletal: neck pain, low back pain Integumentary: no rash, no pruritis Neurological: no headaches, no confusion Psychiatric: no anxiety, no paranoia Exam - Constitutional Vitals: Temp Pulse Resp BP Pulse Ox 99.7 F H 113 H 25 H 123/78 97 05/15/20 19:07 05/16/20 00:00 05/16/20 00:00 05/16/20 00:00 05/16/20 00:00 General appearance: Present: no acute distress, well-nourished - EENT Eyes: Present: PERRL, EOM intact. Absent: scleral icterus ENT: hearing intact, clear oral mucosa, dentition normal - Neck Neck: Present: supple, normal ROM - Respiratory Respiratory effort: normal Respiratory: bilateral: CTA - Cardiovascular Rhythm: regular Heart Sounds: Present: S1 & S2. Absent: gallop, systolic murmur, diastolic murmur, rub - Extremities Extremities: no ischemia, pulses intact, pulses symmetrical, No edema, Full ROM Peripheral Pulses: within normal limits - Abdominal General gastrointestinal: Present: soft, non-tender, non-distended, normal bowel sounds. Absent: mass - Integumentary Integumentary: Present: clear, warm, dry - Musculoskeletal Musculoskeletal: strength equal bilaterally, other (mildly tender lower extremities) - Psychiatric Psychiatric: appropriate mood/affect, intact judgment & insight, memory intact, cooperative - Neurologic Neurologic: CNII-XII intact, no focal deficits, moves all extremities Results - Labs CBC & Chem 7: 05/17/20 06:15 05/15/20 22:48 Labs: Abnormal lab results 05/15/20 05/15/20 05/15/20 Range/Units 19:24 22:48 22:48 WBC 11.7 H (4.5-11.0) K/mm3 RBC 1.87 L (3.65-5.03) M/mm3 Hgb 5.9 L* (11.8-15.2) gm/dl Hct 17.2 L* (35.5-45.6) % RDW 20.9 H (13.2-15.2) % Plt Count 454 H (140-440) K/mm3 Lymph % (Auto) 35.6 H (13.4-35.0) % [place] % (Auto) 8.9 H (0.0-7.3) % [place] # (Auto) 1.1 H (0.0-0.8) K/mm3 Sodium 135 L (137-145) mmol/L Carbon Dioxide 21 L (22-30) mmol/L BUN 5 L (9-20) mg/dL Creatinine 0.5 L (0.8-1.3) mg/dL Glucose 235 H (75-100) mg/dL Calcium 8.3 L (8.4-10.2) mg/dL Total Bilirubin 2.50 H (0.1-1.2) mg/dL AST 41 H (5-40) units/L Alkaline Phosphatase 184 H (35-129) units/L Urine WBC (Auto) 9.0 H (0.0-6.0) /HPF Assessment and Plan - Patient Problems (1) Sickle cell pain crisis Current Visit: Yes Status: Chronic Plan to address problem: Patient placed on IV fluid and IV analgesic medication. We will also continue patient on his routine home medications including folic acid. (2) Sickle cell anemia Current Visit: Yes Status: Chronic Plan to address problem: We will monitor hemoglobin and hematocrit. Patient is a Yazidi and declines blood transfusion. We will place a consult to his division sergeant for further evaluation and recommendation. (3) UTI (urinary tract infection) Current Visit: Yes Status: Acute Plan to address problem: Patient placed on empiric IV antibiotics. (4) Leukocytosis Current Visit: No Status: Acute Plan to address problem: Possibly reactive versus underlying UTI . Will monitor CBC. (5) DVT prophylaxis Current Visit: No Status: Acute Plan to address problem: Patient placed on subcutaneous Lovenox. (6) Full code status Current Visit: Yes Status: Acute
[2020-05-16] MEDS ORDERED: D5W/0.45% NACL 1,000 ML IV SCH (03:00)
[2020-05-16] MEDS: diphenhydrAMINE 50 MG/ML VIAL IV PRN ×3 (05:32→18:09)
[2020-05-16] MEDS ORDERED: HEPARIN 5,000 UNIT/1 ML VIAL SUB-Q SCH (06:00)
[2020-05-16] MEDS: HYDROmorphone 2 MG/1 ML INJ IV PRN ×6 (08:09→22:28)
--- NOTE | 2020-05-16 08:33 | Hem/Onc Consultation ---
History of Present Illness - History of Present Illness PRELIM DATA REVIEW HEMATOLOGY 34yo young man with sickle cell disease, chronic hemolytic anemia followed by Dr. Fabian, blood transfusion refusal pt eval for low back pain, concern for sickle cell vaso-occlusive pain crisis found to have severe anemia, lower than he has been in the past DATA REVIEWED BELOW HCT 17 retic 2 Glu 256 IMPRESSION: Sickle cell disease severe anemia mostly due to chronic hemolysis blood product refusal low retic indicated possible "aplastic crisis" presumed vasoocclusive pain crisis opiate requirement for pain (home fentanyl patch) RECOMMEND: start procrit, folic acid supplement labs to include iron, TIBC, ferritin, LDH, retic opiate meds needed for pain caution with IVF to avoid hemodilution stay in hospital until pain controlled CXR low dose lovenox Vital Signs Temp Pulse Resp BP Pulse Ox 99.7 F H 103 H 14 117/68 96 05/15/20 19:07 05/16/20 02:30 05/16/20 02:30 05/16/20 02:30 05/16/20 02:30 Temperature -Last 24 Hours Temperature 99.7 F Home Medications Medication Instructions Recorded Confirmed Last Taken Oxycodone HCl [roxiCODONE] 60 mg PO Q4HR PRN 12/26/19 01/23/20 Unknown fentaNYL [Fentanyl] 1 each TD Q3D 12/26/19 01/23/20 Unknown Abnormal Lab Results 05/15/20 05/15/20 05/15/20 19:24 22:48 22:48 WBC 11.7 H RBC 1.87 L Hgb 5.9 L* Hct 17.2 L* MCV 92 MCH 32 MCHC 34 RDW 20.9 H Plt Count 454 H Lymph % (Auto) 35.6 H [place] % (Auto) 8.9 H Eos % (Auto) 0.5 Baso % (Auto) 0.9 Lymph # (Auto) 4.2 [place] # (Auto) 1.1 H Eos # (Auto) 0.1 Baso # (Auto) 0.1 Seg Neutrophils % 54.1 Seg Neutrophils # 6.3 Percent Retic 1.98 Sodium 135 L Potassium 4.0 Chloride 99.8 Carbon Dioxide 21 L Anion Gap 18 BUN 5 L Creatinine 0.5 L Estimated GFR > 60 BUN/Creatinine Ratio 10 Glucose 235 H Calcium 8.3 L Total Bilirubin 2.50 H AST 41 H ALT 19 Alkaline Phosphatase 184 H Total Protein 6.5 Albumin 4.0 Albumin/Globulin Ratio 1.6 Urine Color [place] Urine Turbidity Clear Urine pH 5.0 Ur Specific [place] 1.011 Urine Protein 30 mg/dl Urine Glucose (UA) Neg Urine Ketones Neg Urine Blood Neg Urine Nitrite Neg Urine Bilirubin Neg Urine Urobilinogen 4.0 Ur Leukocyte Esterase Neg Urine WBC (Auto) 9.0 H Urine RBC (Auto) 2.0 U Epithel Cells (Auto) < 1.0 Urine Bacteria (Auto) 1+ Hyaline Casts 1 Urine Mucus 3+ Past History Past Medical History: other (Sickle cell disease, Avascular necrosis on hip) Past Surgical History: Other (Left hip replacement,Port placement left chest wall, port replacement on left chest, Port placement right chest.) Social history: no significant social history Medications and Allergies Allergies Allergy/AdvReac Type Severity Reaction Status Date / Time butorphanol tartrate Allergy Unknown Verified 08/28/19 01:23 [From Stadol] ceftriaxone [From Rocephin] Allergy Unknown Verified 08/28/19 01:23 ketorolac tromethamine Allergy Shortness Verified 08/28/19 01:23 [From Toradol] of Breath metoclopramide HCl Allergy Unknown Verified 08/28/19 01:23 [From Reglan] morphine Allergy Shortness Verified 08/28/19 01:23 of Breath risperidone [From Risperdal] Allergy Swelling Verified 08/28/19 01:23 temazepam [From Restoril] Allergy Swelling Verified 08/28/19 01:23 nalbuphine HCl [From Nubain] AdvReac Unknown Verified 08/28/19 01:23 Home Medications Medication Instructions Recorded Confirmed Last Taken Type Oxycodone HCl [roxiCODONE] 60 mg PO Q4HR PRN 12/26/19 01/23/20 Unknown History fentaNYL [Fentanyl] 1 each TD Q3D 12/26/19 01/23/20 Unknown History Active Meds: Active Medications Acetaminophen (Tylenol) 650 mg PO Q4H PRN PRN Reason: Pain MILD(1-3)/Fever >100.5/DOYLE Bisacodyl (Dulcolax) 10 mg NC QDAY PRN PRN Reason: Constipation unrelieved by MOM Diphenhydramine HCl (Benadryl) 25 mg IV Q6H PRN PRN Reason: Itching Last Admin: 05/16/20 05:32 Dose: 25 mg Documented by: Folic Acid (Folvite) 1 mg PO QDAY [facility] Heparin Sodium (Porcine) (Heparin) 5,000 unit SUB-Q Q8HR [facility] Last Admin: 05/16/20 07:24 Dose: Not Given Documented by: Hydromorphone HCl (Dilaudid) 2 mg IV Q2H PRN PRN Reason: Pain , Severe (7-10) Stop: 05/17/20 02:12 Last Admin: 05/16/20 08:09 Dose: 2 mg Documented by: Dextrose/Sodium Chloride (D5ns 0.2%) 1,000 mls @ 250 mls/hr IV DIRECT AGNIESZKA Last Admin: 05/15/20 22:25 Dose: 250 mls/hr Documented by: Dextrose/Sodium Chloride (D5/0.45ns) 1,000 mls @ 150 mls/hr IV DIRECT AGNIESZKA Stop: 05/16/20 09:39 Levofloxacin (Levaquin) 500 mg PO Q24HR@2200 [facility] Stop: 05/19/20 23:59 Magnesium Hydroxide (Milk Of Magnesia) 30 ml PO Q4H PRN PRN Reason: Constipation Multivitamins (Theragran Tab) 1 each PO QDAY [facility] Ondansetron HCl (Zofran) 4 mg IV Q8H PRN PRN Reason: Nausea And Vomiting Senna (Senokot) 17.2 mg PO QHS [facility] Sodium Chloride (Sodium Chloride Flush Syringe 10 Ml) 10 ml IV BID [facility] Sodium Chloride (Sodium Chloride Flush Syringe 10 Ml) 10 ml IV PRN PRN PRN Reason: LINE FLUSH Exam - Constitutional Vitals: Last Vital Signs Temp 99.7 F H 05/15/20 19:07 Pulse 103 H 05/16/20 02:30 Resp 14 05/16/20 02:30 BP 117/68 05/16/20 02:30 Pulse Ox 96 05/16/20 02:30 Results - Labs lab Results: Laboratory Results - last 24 hr 05/15/20 05/15/20 05/15/20 19:24 22:48 22:48 WBC 11.7 H RBC 1.87 L Hgb 5.9 L* Hct 17.2 L* MCV 92 MCH 32 MCHC 34 RDW 20.9 H Plt Count 454 H Lymph % (Auto) 35.6 H [place] % (Auto) 8.9 H Eos % (Auto) 0.5 Baso % (Auto) 0.9 Lymph # (Auto) 4.2 [place] # (Auto) 1.1 H Eos # (Auto) 0.1 Baso # (Auto) 0.1 Seg Neutrophils % 54.1 Seg Neutrophils # 6.3 Percent Retic 1.98 Sodium 135 L Potassium 4.0 Chloride 99.8 Carbon Dioxide 21 L Anion Gap 18 BUN 5 L Creatinine 0.5 L Estimated GFR > 60 BUN/Creatinine Ratio 10 Glucose 235 H Calcium 8.3 L Total Bilirubin 2.50 H AST 41 H ALT 19 Alkaline Phosphatase 184 H Total Protein 6.5 Albumin 4.0 Albumin/Globulin Ratio 1.6 Urine Color [place] Urine Turbidity Clear Urine pH 5.0 Ur Specific [place] 1.011 Urine Protein 30 mg/dl Urine Glucose (UA) Neg Urine Ketones Neg Urine Blood Neg Urine Nitrite Neg Urine Bilirubin Neg Urine Urobilinogen 4.0 Ur Leukocyte Esterase Neg Urine WBC (Auto) 9.0 H Urine RBC (Auto) 2.0 U Epithel Cells (Auto) < 1.0 Urine Bacteria (Auto) 1+ Hyaline Casts 1 Urine Mucus 3+
--- NOTE | 2020-05-16 09:34 | XRay Report ---
CHEST 2 VIEWS INDICATION / CLINICAL INFORMATION: sickle cell disease pain crisis. COMPARISON: 01/22/2020. FINDINGS: SUPPORT DEVICES: Left-sided Port-A-Cath. HEART / MEDIASTINUM: No significant abnormality. LUNGS / PLEURA: No significant pulmonary or pleural abnormality. No pneumothorax. ADDITIONAL FINDINGS: No significant additional findings. IMPRESSION: No acute cardiopulmonary abnormality. No significant change from 01/22/2020. Signer Name: Pete Camilo MD Signed: 05/16/2020 9:30 AM Workstation Name: [id number]
[2020-05-16] MEDS ORDERED: SODIUM CHLORIDE 0.45% 1000 ML 1,000 ML IV ONE (10:24)
[2020-05-16] MEDS: SODIUM CHLORIDE 0.45% 1000 ML 1,000 ML IV SCH (10:31)
[2020-05-16 10:59] LABS: Hematocrit 24.3 % (35.5-45.6); Hemoglobin 8.3 gm/dl (11.8-15.2)
[2020-05-16] MEDS ORDERED: FOLIC ACID 1 MG TAB ONE (11:22)
[2020-05-16] MEDS ORDERED: MULTIVITAMINS ,THERAPEUTIC TAB PO ONE (11:22)
[2020-05-16] MEDS: FOLIC ACID 1 MG TAB PO SCH (11:37)
[2020-05-16] MEDS: EPOETIN ALFA 10,000 UNIT/1 ML INJ SUB-Q SCH (11:37)
[2020-05-16] MEDS: MULTIVITAMINS ,THERAPEUTIC TAB PO SCH (11:37)
--- NOTE | 2020-05-16 23:12 | XRay Report ---
BILATERAL KNEES, 6 IMAGES INDICATION: sickle cell, h/o hip AVN, r/o knee bone infarct. COMPARISON: 12/26/2019. FINDINGS: There is no acute skeletal abnormality. Mild degenerative changes are again noted. No joint effusion is seen bilaterally. Subtle sclerosis in the distal right femur and proximal right tibia which could be seen in the settin g of osteonecrosis. No subchondral collapse. IMPRESSION: 1. No acute findings. Signer Name: Tobias Best MD Signed: 05/16/2020 11:08 PM Workstation Name: [id number]
[2020-05-17] MEDS ORDERED: HYDROmorphone 1 MG/1 ML INJ ONE ×2 (00:19)
[2020-05-17] MEDS ORDERED: diphenhydrAMINE 50 MG/ML VIAL ONE (00:20)
[2020-05-17] MEDS ORDERED: levoFLOXacin 500 MG TAB ONE (00:24)
[2020-05-17] MEDS ORDERED: methylPREDNISolone Sod Succinate 40 MG/1 ML INJ ONE (00:24)
[2020-05-17] MEDS: diphenhydrAMINE 50 MG/ML VIAL IV PRN ×4 (00:28→18:28)
[2020-05-17] MEDS ORDERED: SODIUM CHLORIDE 0.45% 1000 ML 1,000 ML IV ONE (00:28)
[2020-05-17] MEDS: levoFLOXacin 500 MG TAB PO SCH ×2 (00:28→21:05)
[2020-05-17] MEDS: HYDROmorphone 2 MG/1 ML INJ IV PRN (00:28)
[2020-05-17] MEDS: methylPREDNISolone Sod Succinate 40 MG/1 ML INJ IV SCH ×3 (00:28→21:05)
[2020-05-17] MEDS: SENNOSIDES 8.6 MG TAB PO SCH ×2 (01:42→21:05)
[2020-05-17] MEDS: HYDROmorphone 1 MG/1 ML INJ IV PRN ×7 (03:07→21:06)
[2020-05-17 06:46] LABS: Basophils # (Auto) 0.2 K/mm3 (0.0-0.1); Basophils % (Auto) 1.2 % (0.0-1.8); Hematocrit 22.3 % (35.5-45.6); Hemoglobin 7.7 gm/dl (11.8-15.2); Iron 51 ug/dL (49-181); Lymphocytes # (Auto) 1.7 K/mm3 (1.2-5.4); Lymphocytes % (Auto) 13.5 % (13.4-35.0); Mean Corpuscular HGB Conc 35 % (32-34); Mean Corpuscular Volume 92 fl (84-94); Monocytes # (Auto) 0.2 K/mm3 (0.0-0.8); Monocytes % (Auto) 1.4 % (0.0-7.3); Platelet Count 499 K/mm3 (140-440); Red Blood Count 2.44 M/mm3 (3.65-5.03); Total Iron Binding Capacity 257 mcg/dL (250-450)
[2020-05-17 06:47] LABS: Red Cell Distribution Width 20.8 % (13.2-15.2)
[2020-05-17 06:59] LABS: Basophils # (Auto) 0.1 K/mm3 (0.0-0.1); Basophils % (Auto) 0.8 % (0.0-1.8); Hematocrit 22.6 % (35.5-45.6); Hemoglobin 7.8 gm/dl (11.8-15.2); Lymphocytes # (Auto) 1.7 K/mm3 (1.2-5.4); Lymphocytes % (Auto) 13.6 % (13.4-35.0); Mean Corpuscular HGB Conc 35 % (32-34); Mean Corpuscular Volume 92 fl (84-94); Monocytes # (Auto) 0.1 K/mm3 (0.0-0.8); Monocytes % (Auto) 1.1 % (0.0-7.3); Platelet Count 492 K/mm3 (140-440); Red Blood Count 2.47 M/mm3 (3.65-5.03)
[2020-05-17 07:00] LABS: Red Cell Distribution Width 20.9 % (13.2-15.2)
[2020-05-17] MEDS: SODIUM CHLORIDE 0.45% 1000 ML 1,000 ML IV SCH ×2 (09:01→18:28)
[2020-05-17] MEDS: FOLIC ACID 1 MG TAB PO SCH (12:15)
[2020-05-17] MEDS: MULTIVITAMINS ,THERAPEUTIC TAB PO SCH (12:15)
--- NOTE | 2020-05-17 12:19 | Progress Note ---
Assessment and Plan Assessment and plan: Sickle cell pain crisis -Patient is on IV pain medication for pain control -Hematology consult appreciated -IV fluid discontinued because it may worsen his severe anemia -Increase Dilaudid from 1 mg to 2 mg every 3 hours -We will continue to monitor Severe anemia -Patient is Jehovah witness and does not want any blood transfusion -Hematology input appreciated Patient was suspected to have UTI and was put on Levaquin UTI ruled out; blood cultures negative. Will discontinue Levaquin DVT prophylaxis -On Lovenox Disposition -Continue inpatient care. History Interval history: Patient was seen and evaluated this morning Patient said his pain is now controlled with the current pain medication regimen Hospitalist Physical - Physical exam Narrative exam: Not in cardiopulmonary distress. The patient appeared well nourished and normally developed. Vital signs as documented. Head exam is unremarkable. No scleral icterus . Neck is without jugular venous distension, thyromegaly, or carotid bruits. Lungs are clear to auscultation. Cardiac exam reveals regular rate and Rhythm. Abdominal exam reveals normal bowel sounds, nontender, no organomegaly. Extremities are nonedematous and both femoral and pedal pulses are normal. RADIO STATION ENGINEER: Alert and oriented 3. No focal weakness. - Constitutional Vitals: Temp Pulse Resp BP Pulse Ox 98.6 F 78 16 114/73 100 05/17/20 11:26 05/17/20 11:26 05/17/20 11:26 05/17/20 11:26 05/17/20 11:26 General appearance: Present: no acute distress, well-nourished Results - Labs CBC & Chem 7: 05/17/20 06:15 05/15/20 22:48 Labs: Laboratory Last Values WBC 12.6 K/mm3 (4.5-11.0) H 05/17/20 06:15 WBC 12.8 K/mm3 (4.5-11.0) H 05/17/20 06:15 RBC 2.44 M/mm3 (3.65-5.03) L 05/17/20 06:15 RBC 2.47 M/mm3 (3.65-5.03) L 05/17/20 06:15 Hgb 7.7 gm/dl (11.8-15.2) L 05/17/20 06:15 Hgb 7.8 gm/dl (11.8-15.2) L 05/17/20 06:15 Hct 22.3 % (35.5-45.6) L 05/17/20 06:15 Hct 22.6 % (35.5-45.6) L 05/17/20 06:15 MCV 92 fl (84-94) 05/17/20 06:15 MCV 92 fl (84-94) 05/17/20 06:15 MCH 32 pg (28-32) 05/17/20 06:15 MCH 32 pg (28-32) 05/17/20 06:15 MCHC 35 % (32-34) H 05/17/20 06:15 MCHC 35 % (32-34) H 05/17/20 06:15 RDW 20.8 % (13.2-15.2) H 05/17/20 06:15 RDW 20.9 % (13.2-15.2) H 05/17/20 06:15 Plt Count 492 K/mm3 (140-440) H 05/17/20 06:15 Plt Count 499 K/mm3 (140-440) H 05/17/20 06:15 Lymph % (Auto) 13.5 % (13.4-35.0) 05/17/20 06:15 Lymph % (Auto) 13.6 % (13.4-35.0) 05/17/20 06:15 [place] % (Auto) 1.1 % (0.0-7.3) 05/17/20 06:15 [place] % (Auto) 1.4 % (0.0-7.3) 05/17/20 06:15 Eos % (Auto) 0.0 % (0.0-4.3) 05/17/20 06:15 Eos % (Auto) 0.0 % (0.0-4.3) 05/17/20 06:15 Baso % (Auto) 0.8 % (0.0-1.8) 05/17/20 06:15 Baso % (Auto) 1.2 % (0.0-1.8) 05/17/20 06:15 Lymph # (Auto) 1.7 K/mm3 (1.2-5.4) 05/17/20 06:15 Lymph # (Auto) 1.7 K/mm3 (1.2-5.4) 05/17/20 06:15 [place] # (Auto) 0.1 K/mm3 (0.0-0.8) 05/17/20 06:15 [place] # (Auto) 0.2 K/mm3 (0.0-0.8) 05/17/20 06:15 Eos # (Auto) 0.0 K/mm3 (0.0-0.4) 05/17/20 06:15 Eos # (Auto) 0.0 K/mm3 (0.0-0.4) 05/17/20 06:15 Baso # (Auto) 0.1 K/mm3 (0.0-0.1) 05/17/20 06:15 Baso # (Auto) 0.2 K/mm3 (0.0-0.1) H 05/17/20 06:15 Seg Neutrophils % 83.9 % (40.0-70.0) H 05/17/20 06:15 Seg Neutrophils % 84.5 % (40.0-70.0) H 05/17/20 06:15 Seg Neutrophils # 10.6 K/mm3 (1.8-7.7) H 05/17/20 06:15 Seg Neutrophils # 10.8 K/mm3 (1.8-7.7) H 05/17/20 06:15 Percent Retic 3.60 % (0.78-2.58) H 05/17/20 06:15 Sodium 135 mmol/L (137-145) L 05/15/20 22:48 Potassium 4.0 mmol/L (3.6-5.0) 05/15/20 22:48 Chloride 99.8 mmol/L (98-107) 05/15/20 22:48 Carbon Dioxide 21 mmol/L (22-30) L 05/15/20 22:48 Anion Gap 18 mmol/L 05/15/20 22:48 BUN 5 mg/dL (9-20) L 05/15/20 22:48 Creatinine 0.5 mg/dL (0.8-1.3) L 05/15/20 22:48 Estimated GFR > 60 ml/min 05/15/20 22:48 BUN/Creatinine Ratio 10 % 05/15/20 22:48 Glucose 235 mg/dL (75-100) H 05/15/20 22:48 Calcium 8.3 mg/dL (8.4-10.2) L 05/15/20 22:48 Iron 51 ug/dL (49-181) 05/17/20 06:15 TIBC 257 mcg/dL (250-450) 05/17/20 06:15 Total Bilirubin 2.50 mg/dL (0.1-1.2) H 05/15/20 22:48 AST 41 units/L (5-40) H 05/15/20 22:48 ALT 19 units/L (7-56) 05/15/20 22:48 Alkaline Phosphatase 184 units/L (35-129) H 05/15/20 22:48 Lactate Dehydrogenase 498 units/L (91-180) H 05/17/20 06:15 Total Protein 6.5 g/dL (6.3-8.2) 05/15/20 22:48 Albumin 4.0 g/dL (3.9-5) 05/15/20 22:48 Albumin/Globulin Ratio 1.6 % 05/15/20 22:48 Urine Color [place] (Yellow) 05/15/20 19:24 Urine Turbidity Clear (Clear) 05/15/20 19:24 Urine pH 5.0 (5.0-7.0) 05/15/20 19:24 Ur Specific [place] 1.011 (1.003-1.030) 05/15/20 19:24 Urine Protein 30 mg/dl mg/dL (Negative) 05/15/20 19:24 Urine Glucose (UA) Neg mg/dL (Negative) 05/15/20 19:24 Urine Ketones Neg mg/dL (Negative) 05/15/20 19:24 Urine Blood Neg (Negative) 05/15/20 19:24 Urine Nitrite Neg (Negative) 05/15/20 19:24 Urine Bilirubin Neg (Negative) 05/15/20 19:24 Urine Urobilinogen 4.0 mg/dL (<2.0) 05/15/20 19:24 Ur Leukocyte Esterase Neg (Negative) 05/15/20 19:24 Urine WBC (Auto) 9.0 /HPF (0.0-6.0) H 05/15/20 19:24 Urine RBC (Auto) 2.0 /HPF (0.0-6.0) 05/15/20 19:24 U Epithel Cells (Auto) < 1.0 /HPF (0-13.0) 05/15/20 19:24 Urine Bacteria (Auto) 1+ /HPF (Negative) 05/15/20 19:24 Hyaline Casts 1 /LPF 05/15/20 19:24 Urine Mucus 3+ /HPF 05/15/20 19:24 Microbiology: Microbiology 05/15/20 19:24 Urine,Clean Catch Urine Culture - Preliminary Santacruz/IV: Voiding Method Toilet IV Catheter Type [Left Infusaport Subclavian] Active Medications - Current Medications Current Medications: Generic Name Dose Route Start Last Admin Trade Name Freq PRN Reason Stop Dose Admin Acetaminophen 650 mg 05/16/20 02:13 05/17/20 01:33 Tylenol PO 650 mg Q4H PRN Administration Pain MILD(1-3)/Fever >100.5/DOYLE Bisacodyl 10 mg 05/16/20 02:13 Dulcolax NV QDAY PRN Constipation unrelieved by MOM Diphenhydramine HCl 25 mg 05/16/20 02:13 05/17/20 06:07 Benadryl IV 25 mg Q6H PRN Administration Itching Enoxaparin Sodium 40 mg 05/17/20 10:00 Enoxaparin SUB-Q QDAY [facility] Protocol Epoetin Aureliano 10,000 unit 05/16/20 10:00 05/16/20 11:37 Procrit SUB-Q 10,000 unit Q48HR AGNIESZKA Administration Folic Acid 1 mg 05/16/20 10:00 05/16/20 11:37 Folvite PO 1 mg QDAY AGNIESZKA Administration Hydromorphone HCl 2 mg 05/17/20 09:58 Dilaudid IV Q3H PRN Pain, Moderate (4-6) Sodium Chloride 1,000 mls @ 125 mls/hr 05/16/20 11:00 05/17/20 09:01 Nacl 0.45% 1000 Ml IV 125 mls/hr DIRECT AGNIESZKA Administration Levofloxacin 500 mg 05/16/20 22:00 05/17/20 00:28 Levaquin PO 05/19/20 23:59 500 mg Q24HR@2200 AGNIESZKA Administration Magnesium Hydroxide 30 ml 05/16/20 02:13 Milk Of Magnesia PO Q4H PRN Constipation Methylprednisolone Sodium Succinate 40 mg 05/16/20 23:00 05/17/20 00:28 Solu-Medrol IV 05/17/20 22:01 40 mg Q12HR AGNIESZKA Administration Multivitamins 1 each 05/16/20 10:00 05/16/20 11:37 Theragran Tab PO 1 each QDAY AGNIESZKA Administration Ondansetron HCl 4 mg 05/16/20 02:13 Zofran IV Q8H PRN Nausea And Vomiting Senna 17.2 mg 05/16/20 22:00 05/17/20 01:42 Senokot PO 17.2 mg QHS AGNIESZKA Administration Sodium Chloride 10 ml 05/16/20 10:00 05/17/20 01:42 Sodium Chloride Flush Syringe 10 Ml IV 10 ml BID AGNIESZKA Administration Sodium Chloride 10 ml 05/16/20 02:13 Sodium Chloride Flush Syringe 10 Ml IV PRN PRN LINE FLUSH
[2020-05-17] MEDS: ENOXAPARIN 40 MG/0.4 ML INJ SUB-Q SCH (15:18)
[2020-05-18] MEDS: diphenhydrAMINE 50 MG/ML VIAL IV PRN ×4 (00:08→18:46)
[2020-05-18] MEDS: HYDROmorphone 1 MG/1 ML INJ IV PRN ×8 (00:09→21:40)
[2020-05-18] MEDS: SODIUM CHLORIDE 0.45% 1000 ML 1,000 ML IV SCH ×3 (03:06→18:47)
[2020-05-18 06:33] LABS: Basophils # (Auto) 0.1 K/mm3 (0.0-0.1); Basophils % (Auto) 0.9 % (0.0-1.8); Hematocrit 24.4 % (35.5-45.6); Hemoglobin 8.4 gm/dl (11.8-15.2); Lymphocytes # (Auto) 1.5 K/mm3 (1.2-5.4); Lymphocytes % (Auto) 17.1 % (13.4-35.0); Mean Corpuscular HGB Conc 34 % (32-34); Mean Corpuscular Volume 92 fl (84-94); Monocytes # (Auto) 0.9 K/mm3 (0.0-0.8); Monocytes % (Auto) 9.7 % (0.0-7.3); Platelet Count 523 K/mm3 (140-440); Red Blood Count 2.67 M/mm3 (3.65-5.03)
[2020-05-18 06:43] LABS: Red Cell Distribution Width 20.7 % (13.2-15.2)
--- NOTE | 2020-05-18 08:32 | Progress Note ---
Assessment and Plan Assessment and plan: Sickle cell pain crisis -Patient is on IV pain medication for pain control -Hematology consult appreciated -IV fluid discontinued because it may worsen his severe anemia -Increase Dilaudid from 1 mg to 2 mg every 3 hours -We will continue to monitor Severe anemia -Patient is Jehovah witness and does not want any blood transfusion -Hematology input appreciated Patient was suspected to have UTI and was put on Levaquin UTI ruled out; blood cultures negative. Will discontinue Levaquin DVT prophylaxis -On Lovenox Disposition -Continue inpatient care. 05/19/2020; patient is admitted for sickle cell pain crisis. Patient is on IV Dilaudid. Hemoglobin is 8.4. Hematology oncology is consulted and patient is on folic acid and Procrit. Please discharge the patient tomorrow, he wants to be discharged earlier in the morning. he said he wants to attend a at 11 00 Am. History Interval history: Patient was seen and evaluated this morning Patient's pain is better controlled Hospitalist Physical - Physical exam Narrative exam: Not in cardiopulmonary distress. The patient appeared well nourished and normally developed. Vital signs as documented. Head exam is unremarkable. No scleral icterus . Neck is without jugular venous distension, thyromegaly, or carotid bruits. Lungs are clear to auscultation. Cardiac exam reveals regular rate and Rhythm. Abdominal exam reveals normal bowel sounds, nontender, no organomegaly. Extremities are nonedematous and both femoral and pedal pulses are normal. 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 No focal weakness. - Constitutional Vitals: Temp Pulse Resp BP Pulse Ox 97.9 F 77 16 100/65 100 05/18/20 07:25 05/18/20 07:25 05/18/20 07:25 05/18/20 07:25 05/18/20 07:25 General appearance: Present: no acute distress, well-nourished Results - Labs CBC & Chem 7: 05/18/20 04:00 05/15/20 22:48 Labs: Laboratory Last Values WBC 8.8 K/mm3 (4.5-11.0) 05/18/20 04:00 RBC 2.67 M/mm3 (3.65-5.03) L 05/18/20 04:00 Hgb 8.4 gm/dl (11.8-15.2) L 05/18/20 04:00 Hct 24.4 % (35.5-45.6) L 05/18/20 04:00 MCV 92 fl (84-94) 05/18/20 04:00 MCH 32 pg (28-32) 05/18/20 04:00 MCHC 34 % (32-34) 05/18/20 04:00 RDW 20.7 % (13.2-15.2) H 05/18/20 04:00 Plt Count 523 K/mm3 (140-440) H 05/18/20 04:00 Lymph % (Auto) 17.1 % (13.4-35.0) 05/18/20 04:00 [place] % (Auto) 9.7 % (0.0-7.3) H 05/18/20 04:00 Eos % (Auto) 0.0 % (0.0-4.3) 05/18/20 04:00 Baso % (Auto) 0.9 % (0.0-1.8) 05/18/20 04:00 Lymph # (Auto) 1.5 K/mm3 (1.2-5.4) 05/18/20 04:00 [place] # (Auto) 0.9 K/mm3 (0.0-0.8) H 05/18/20 04:00 Eos # (Auto) 0.0 K/mm3 (0.0-0.4) 05/18/20 04:00 Baso # (Auto) 0.1 K/mm3 (0.0-0.1) 05/18/20 04:00 Seg Neutrophils % 72.3 % (40.0-70.0) H 05/18/20 04:00 Seg Neutrophils # 6.4 K/mm3 (1.8-7.7) 05/18/20 04:00 Percent Retic 5.48 % (0.78-2.58) H 05/18/20 04:00 Sodium 135 mmol/L (137-145) L 05/15/20 22:48 Potassium 4.0 mmol/L (3.6-5.0) 05/15/20 22:48 Chloride 99.8 mmol/L (98-107) 05/15/20 22:48 Carbon Dioxide 21 mmol/L (22-30) L 05/15/20 22:48 Anion Gap 18 mmol/L 05/15/20 22:48 BUN 5 mg/dL (9-20) L 05/15/20 22:48 Creatinine 0.5 mg/dL (0.8-1.3) L 05/15/20 22:48 Estimated GFR > 60 ml/min 05/15/20 22:48 BUN/Creatinine Ratio 10 % 05/15/20 22:48 Glucose 235 mg/dL (75-100) H 05/15/20 22:48 Calcium 8.3 mg/dL (8.4-10.2) L 05/15/20 22:48 Iron 51 ug/dL (49-181) 05/17/20 06:15 TIBC 257 mcg/dL (250-450) 05/17/20 06:15 Total Bilirubin 2.50 mg/dL (0.1-1.2) H 05/15/20 22:48 AST 41 units/L (5-40) H 05/15/20 22:48 ALT 19 units/L (7-56) 05/15/20 22:48 Alkaline Phosphatase 184 units/L (35-129) H 05/15/20 22:48 Lactate Dehydrogenase 439 units/L (91-180) H 05/18/20 04:00 Total Protein 6.5 g/dL (6.3-8.2) 05/15/20 22:48 Albumin 4.0 g/dL (3.9-5) 05/15/20 22:48 Albumin/Globulin Ratio 1.6 % 05/15/20 22:48 Urine Color [place] (Yellow) 05/15/20 19:24 Urine Turbidity Clear (Clear) 05/15/20 19:24 Urine pH 5.0 (5.0-7.0) 05/15/20 19:24 Ur Specific [place] 1.011 (1.003-1.030) 05/15/20 19:24 Urine Protein 30 mg/dl mg/dL (Negative) 05/15/20 19:24 Urine Glucose (UA) Neg mg/dL (Negative) 05/15/20 19:24 Urine Ketones Neg mg/dL (Negative) 05/15/20 19:24 Urine Blood Neg (Negative) 05/15/20 19:24 Urine Nitrite Neg (Negative) 05/15/20 19:24 Urine Bilirubin Neg (Negative) 05/15/20 19:24 Urine Urobilinogen 4.0 mg/dL (<2.0) 05/15/20 19:24 Ur Leukocyte Esterase Neg (Negative) 05/15/20 19:24 Urine WBC (Auto) 9.0 /HPF (0.0-6.0) H 05/15/20 19:24 Urine RBC (Auto) 2.0 /HPF (0.0-6.0) 05/15/20 19:24 U Epithel Cells (Auto) < 1.0 /HPF (0-13.0) 05/15/20 19:24 Urine Bacteria (Auto) 1+ /HPF (Negative) 05/15/20 19:24 Hyaline Casts 1 /LPF 05/15/20 19:24 Urine Mucus 3+ /HPF 05/15/20 19:24 Microbiology: Microbiology 05/17/20 15:09 Peripheral/Venous Blood Culture - Preliminary Culture in Progress 05/17/20 15:09 Peripheral/Venous Blood Culture - Preliminary Culture in Progress 05/15/20 19:24 Urine,Clean Catch Urine Culture - Preliminary Santacruz/IV: Voiding Method Toilet IV Catheter Type [Left Infusaport Subclavian] Active Medications - Current Medications Current Medications: Generic Name Dose Route Start Last Admin Trade Name Freq PRN Reason Stop Dose Admin Acetaminophen 650 mg 05/16/20 02:13 05/17/20 01:33 Tylenol PO 650 mg Q4H PRN Administration Pain MILD(1-3)/Fever >100.5/DOYLE Bisacodyl 10 mg 05/16/20 02:13 Dulcolax MD QDAY PRN Constipation unrelieved by MOM Diphenhydramine HCl 25 mg 05/16/20 02:13 05/18/20 06:16 Benadryl IV 25 mg Q6H PRN Administration Itching Enoxaparin Sodium 40 mg 05/17/20 10:00 05/17/20 15:18 Enoxaparin SUB-Q Not Given QDAY [facility] Protocol Epoetin Aureliano 10,000 unit 05/16/20 10:00 05/16/20 11:37 Procrit SUB-Q 10,000 unit Q48HR AGNIESZKA Administration Folic Acid 1 mg 05/16/20 10:00 05/17/20 12:15 Folvite PO 1 mg QDAY AGNIESZKA Administration Hydromorphone HCl 2 mg 05/17/20 09:58 05/18/20 06:17 Dilaudid IV 2 mg Q3H PRN Administration Pain, Moderate (4-6) Sodium Chloride 1,000 mls @ 125 mls/hr 05/16/20 11:00 05/18/20 03:06 Nacl 0.45% 1000 Ml IV 125 mls/hr DIRECT AGNIESZKA Administration Magnesium Hydroxide 30 ml 05/16/20 02:13 Milk Of Magnesia PO Q4H PRN Constipation Multivitamins 1 each 05/16/20 10:00 05/17/20 12:15 Theragran Tab PO 1 each QDAY AGNIESZKA Administration Ondansetron HCl 4 mg 05/16/20 02:13 Zofran IV Q8H PRN Nausea And Vomiting Senna 17.2 mg 05/16/20 22:00 05/17/20 21:05 Senokot PO Not Given QHS AGNIESZKA Sodium Chloride 10 ml 05/16/20 10:00 05/17/20 21:07 Sodium Chloride Flush Syringe 10 Ml IV 10 ml BID AGNIESZKA Administration Sodium Chloride 10 ml 05/16/20 02:13 Sodium Chloride Flush Syringe 10 Ml IV PRN PRN LINE FLUSH
[2020-05-18] MEDS: MULTIVITAMINS ,THERAPEUTIC TAB PO SCH (09:16)
[2020-05-18] MEDS: FOLIC ACID 1 MG TAB PO SCH (09:16)
[2020-05-18] MEDS: EPOETIN ALFA 10,000 UNIT/1 ML INJ SUB-Q SCH (11:43)
[2020-05-18] MEDS: ENOXAPARIN 40 MG/0.4 ML INJ SUB-Q SCH (12:31)
[2020-05-18] MEDS: SENNOSIDES 8.6 MG TAB PO SCH (21:40)
[2020-05-19] MEDS: diphenhydrAMINE 50 MG/ML VIAL IV PRN ×2 (00:44→06:54)
[2020-05-19] MEDS: HYDROmorphone 1 MG/1 ML INJ IV PRN ×3 (00:45→06:54)
[2020-05-19] MEDS ORDERED: HEPARIN 10,000 UNITS/10 ML VIAL IV NR (07:02)
[2020-05-19 08:27] VITALS: BP 116/74
--- NOTE | 2020-05-19 08:58 | Discharge Summary ---
Providers - Providers Date of Admission: 05/16/20 12:36 Attending physician: YANCY HANDLEY MD 05/16/20 08:05 Consult to Physician [CONS] Routine Comment: Consulting Provider: RADHA MORGAN Physician Instructions: Reason For Exam: sickle cell anemia, johva witness Primary care physician: TRANSPORTATION INSPECTOR Hospitalization Reason for admission: Sickle cell crisis Condition: Stable Hospital course: 34-year-old male with known history of sickle cell disease and who is also Pentecostalism presenting to the emergency room today complaining of extremity and lower back pain which has been ongoing for 2 days. Patient states he feels recent sickle cell crisis. He denies any fever or chills, no chest pain or shortness of breath, no ab dominal pain, no nausea vomiting and no diarrhea, no hematuria or dysuria. Patient indicates he has been compliant with his medications but his medications has not been helping with his pain today. He therefore decided to report to the emergency room for further evaluation. He follows up with his masseur/masseuse Dr. Fabian Work-up in the emergency room today reveals a hemoglobin of 5.9 and hematocrit of 17.2.Retic count is 1.98 Patient had few WBCs and few bacteria in the urine. He has been commenced on IV fluid, IV analgesic medication and empiric IV antibiotics for possible UTI. Patient is a Pentecostalism and therefore declines blood transfusion. He is being admitted for sickle cell pain crisis. Sickle cell pain crisis -Patient is on IV pain medication for pain control -Hematology consult appreciated -IV fluid discontinued because it may worsen his severe anemia -Increase Dilaudid from 1 mg to 2 mg every 3 hours -We will continue to monitor Severe anemia -Patient is Jehovah witness and does not want any blood transfusion -Hematology input appreciated SIRS without organ dysfunction with no evidence of sepsis. UTI ruled out; blood cultures negative. Will discontinue Levaquin DVT prophylaxis -On Lovenox Disposition -Continue inpatient care. 05/19/2020; patient clinically improved today and stable for discharge follows with masseur/masseuse Dr. Fabian for his pain medication. Counseling provided to the patient. He will continue on folic acid. We will also discuss with his masseur/masseuse about other blood conserving methods outpatient. In the hospital he was treated with folic acid and iron supplements and also with Procrit. Disposition: DC-01 TO HOME OR SELFCARE Time spent for discharge: 35 minutes Core Measure Documentation - Palliative Care Palliative Care/ Comfort Measures: Not Applicable - Core Measures Any of the following diagnoses?: none Exam - Physical Exam Narrative exam: VITAL SIGNS: Reviewed. GENERAL: The patient appears normally developed, Vital signs as documented. HEAD: No signs of head trauma. EYES: Pupils are equal. Extraocular motions intact. EARS: Hearing grossly intact. MOUTH: Oropharynx is normal. NECK: No adenopathy, no JVD. CHEST: Chest with clear breath sounds bilaterally. No wheezes, rales, or rhonchi. CARDIAC: Regular rate and rhythm. S1 and S2, without murmurs, gallops, or rubs. VASCULAR: No Edema. Peripheral pulses normal and equal in all extremities. ABDOMEN: Soft, non tender and non distended. No rebound or guarding, and no masses palpated. Bowel Sounds normal. MUSCULOSKELETAL: Good range of motion of all major joints. Extremities without clubbing, cyanosis or edema. NEUROLOGIC EXAM: Alert and oriented x 3 No focal sensory or strength deficits. Speech normal. Follows commands. PSYCHIATRIC: Mood normal. SKIN: Multiple tattoos detail exam as documented in skin assessment - Constitutional Vitals: Temp Pulse Resp BP Pulse Ox 99.2 F 88 18 116/74 98 05/19/20 07:00 05/19/20 07:00 05/19/20 07:00 05/19/20 07:00 05/19/20 07:00 Plan Activity: advance as tolerated, fall precautions Diet: low fat Special Instructions: record daily weights, record daily BP diary Additional Instructions: Follow-up with your masseur/masseuse oncologist. Follow up with: PRIMARY CARE, [Primary Care Provider] - 3-5 Days Prescriptions: Sennosides Tab [Senokot] 17.2 mg PO QHS #30 tablet Folic Acid [Folvite] 1 mg PO QDAY #30 tablet Multivitamin Tab [Multiple Vitamin TAB (Theragran)] 1 each PO QDAY #30 tablet
== END 2020-05-19 11:00 | disposition home or self-care (01) | DRG 812 ==
LOC: ED 19:02 → 3A 05-16 00:12 → OBSVTOIN 05-16 12:36 → 3B-SURG 05-17 00:23
PROVIDERS: ADMIT Internal Medicine Geriatric Medicine; ATTEND Internal Medicine
DX: D57.00 Hb-SS disease with crisis, unspecified (principal); D72.829 Elevated white blood cell count, unspecified; R65.10 Systemic inflammatory response syndrome (SIRS) of non-infectious origin without acute organ dysfunction; Z88.8 Allergy status to other drugs, medicaments and biological substances; Z90.49 Acquired absence of other specified parts of digestive tract; Z53.1 Procedure and treatment not carried out because of patient's decision for reasons of belief and group pressure
CPT/HCPCS: 36415; 71046; 80053; 81001; 83550; 83615; 85014; 85018; 85025; 85045; 87040; 87086; 96361; 96365; 96366; 96375; G0378; J0885; J1170; J1200; J2405; J2920; J7030; J7040